=== PATIENT | female | born 1960 | race Caucasian/White ===

== ENCOUNTER 2018-01-18 14:58 | Outpatient (REF) | payer OTHER, SELFPAY | END 2018-01-18 15:18 | LOC: LBN 14:58 | PROVIDERS: PCP Nurse Practitioner; Visit Provider Nurse Practitioner | DX: R30.0 Dysuria (principal) | CPT/HCPCS: 87086 ==

== ENCOUNTER 2018-02-08 00:17 | Outpatient (CLI) | payer OTHER, SELFPAY ==
--- NOTE | 2018-02-08 12:30 | DI.MAMMO_ITS ---
SYMPTOMS/DIAGNOSIS: SCREENING FOR BREAST CANCER, Z12.31 MAMMOGRAMS: Mammograms were interpreted according to the usual protocol including computer analysis with CAD system, tomosynthesis and C view imaging. Comparison is with the prior examinations. No masses or microcalcifications are seen. There is nothing to suggest malignancy. IMPRESSION: Negative mammogram. Routine screening is recommended. Category 1 , breast density B. MQSA ASSESSMENT OF FINDINGS: Negative. Category 1. Patient will receive a letter notifying them of these results. BI-RADS category B. There are scattered areas of fibroglandular density.
[2018-02-08 12:51] LABS: HCT 43.3 % (36.0-46.0); Mean Corp. HGB Concentration 32.3 g/dL (32.0-36.0); Mean Corpuscular Volume 95.8 fL (80-95); Mean Platelet Volume 9.9 fL (8.0-11.0); Platelet Count 313 x1000/uL (130-400); RBC 4.52 m/cumm (4.00-5.20); RBC Distribution Width 13.5 % (11.7-14.6)
[2018-02-08 13:36] LABS: ALT 27 U/L (12-78); AST 24 U/L (15-37); Albumin 4.2 g/dL (3.4-5.0); Alkaline Phosphatase 88 U/L (46-116); Anion Gap 9.3 mmol/L (3-11); BUN 23 mg/dL (7-18); Bilirubin, Total 0.8 mg/dL (0.2-1.0); CO2 28.7 mmol/L (21.0-32.0); Calcium 9.6 mg/dL (8.5-10.1); Chloride 102 mmol/L (98-107); Cholesterol 209 mg/dL (50-200); Estimated GFR 51.57 (mL/min/1.73m2); Glucose 91 mg/dL (70-100); HDL Cholesterol 38 mg/dL (40-60); LDL CHOLESTEROL 145 mg/dL (<100); Potassium 4.2 mmol/L (3.5-5.1); Sodium 140 mmol/L (136-145); Total Protein 7.6 g/dL (6.4-8.2); Triglyceride 166 mg/dL (30-150)
== END 2018-02-08 00:37 ==
PROVIDERS: PCP Nurse Practitioner; Visit Provider Nurse Practitioner
DX: Z12.31 Encounter for screening mammogram for malignant neoplasm of breast (principal); N28.9 Disorder of kidney and ureter, unspecified; R30.0 Dysuria
CPT/HCPCS: 36415; 77063; 77067; 80053; 80061; 83721; 85027

== ENCOUNTER 2018-11-14 13:59 | Outpatient (REF) | payer OTHER, SELFPAY | END 2018-11-14 14:19 | LOC: LBN 13:59 | PROVIDERS: PCP Nurse Practitioner; Visit Provider Nurse Practitioner | DX: R30.0 Dysuria (principal) | CPT/HCPCS: 87077; 87086; 87186 ==

== ENCOUNTER 2019-04-11 02:19 | Outpatient (CLI) | payer OTHER, SELFPAY ==
--- NOTE | 2019-04-11 13:55 | DI.US_ITS ---
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 There is evidence of apical hypertrophic cardiomy opathy without LVOT obstruction. The left ventricular ejection fraction is within the normal range. T here is normal LV segmental wall motion. There is grade 2 diastolic dysfunction. LVEF is estimated to be 50-55%. Right Ventricle : Right ventricle appears dilated. Right ventricle is mildly hypokinetic. A device wi re is present in the right ventricle. Atria : Left atrium is severely dilated. There is a device wire seen in the right atrium. Right atriu m is mildly dilated. Aortic Valve : Aortic valve is trileaflet. No aortic regurgitation is present. There is no aortic alee vular stenosis. Mitral Valve : Mitral valve leaflets are mildly thickened. Mild mitral regurgitation. No evidence of mitral valve stenosis. Tricuspid Valve : Tricuspid valve leaflets are thickened but open well. Moderate tricuspid regurgitat ion. Great Vessels : IVC is normal in size and collapses >50% with inspiration. Estimated RVSP is 42-45 m mHg. Compared to echocardiogram from [facility] dated 07/26/2018: There is no significant change. Wall motion Left Ventricle The left ventricle is normal size. The left ventricular ejection fraction is within the normal range. There is evidence of apical hypertrophic cardiomyopathy without LVOT obstruction. There is normal LV segmental wall motion. There is grade 2 diastolic dysfunction. LVEF is estimated to be 50-55%. Right Ventricle Right ventricle appears dilated. Right ventricle is mildly hypokinetic. A device wire is present in t he right ventricle. Atria Left atrium is severely dilated. There is a device wire seen in the right atrium. Right atrium is mil dly dilated. Aortic Valve Aortic valve is trileaflet. There is no aortic valvular stenosis. No aortic regurgitation is present. Mitral Valve Mitral valve leaflets are mildly thickened. No evidence of mitral valve stenosis. Mild mitral regurgi tation. Tricuspid Valve Tricuspid valve leaflets are thickened but open well. Moderate tricuspid regurgitation. Pulmonic Valve Pulmonic valve is not well visualized. Trivial pulmonic regurgitation. Great Vessels The aortic root is normal in size. The ascending aorta is normal in size. IVC is normal in size and c ollapses >50% with inspiration. Estimated RVSP is 42-45 mmHg. Pericardium There is no pericardial effusion. 2D Dimensions IVSd 1.15 cm F: 0.6-1.0 LV EDV A2C 40.30 mL PWd 1.15 cm F: 0.6 - 1.0 LV EDV A4C 35.30 mL LVDd 4.30 cm F: 3.8 - 5.2 LA Volume Index A2C 48.96 mL/m2 LVDs 2.80 cm F: 2.2 - 3.5 LA Volume Index A4C 62.20 mL/m2 Aortic Root 2.55 cm F: 2.7 - 3.3 LA Volume Index Biplane 56.54 mL/m2 RVID Base (AP4) 4.34 cm (M/F) 2.5-4.1 LA Area A4C 25.70 cm2 RA Area A4C 22.53 cm2 LA Area A2C 22.25 cm2 LVOT 1.85 cm (M/F) 1.5-2.5 EF AP4 54.96 % Ascending Aorta 2.57 cm F: 2.3 - 3.1 EF AP2 51.36 % LVEF (Teich) 63.71 % EF BP 53.72 % LVEF (Simmons's) 53.72 % F: 54 - 74 LV Volume 32.01 mL F: 46 - 106 LV Volume Index 21.05 mL/m2 F: 29 - 61 FS 34.35 % LV Diastology MED E' 0.06 (>0.07 m/s) LV E/e MED 9.45 (<14) LAT E' 0.09 (>0.1 m/s) LV E/e LAT 6.15 (<14) Aortic Valve LVOT Area 2.82 cm2 LVOT Vmax 0.56 m/s LVOT Mean Naif. 0.43 m/s LVOT Peak Gr. 1.3 mmHg LVOT Mean Gr. 0.8 mmHg AoV Area/ BSA (Vmax) 1.41 cm2/m2 LVOT VTI 0.067 m AoV Vmax 0.74 (0.5-1.3 m/s) JULIAN Mean Naif. Index 1.42 cm2/m2 AoV Mean Naif. 0.56 m/s AoV Peak Grad 2.2 mmHg AoV Mean Grad 1.3 (<5 mmHg) AoV VTI 0.118 (0.18-0.25 m) AoV Area VTI 2.36 (2.5-4.5 cm2) AoV Area/ BSA (VTI) 1.55 cm/m2 Mitral Valve MV E Max Naif. 0.52 (0.4-1.3 m/s) MV Decel. Time 114.90 (160-240 msec) MV PHT 33.33 msec MVA PHT 6.60 cm2 Pulmonary Valve RVOT Peak Gr. 1.35 mmHg RVOT Peak Naif. 0.58 m/s RVOT Mean Gr. 0.70 mmHg RVOT VTI 0.10 m Tricuspid Valve TR P. Velocity 3.26 m/s TV Regurg Vmax 3.26 m/s RAP Estimate 3.00 mmHg RVSP 45.45 mmHg TR P. Gradient 42.45 mmHg
== END 2019-04-11 02:39 ==
PROVIDERS: PCP Nurse Practitioner; Visit Provider Physician Assistant Medical
DX: I48.21 Permanent atrial fibrillation (principal); I42.2 Other hypertrophic cardiomyopathy; Z95.0 Presence of cardiac pacemaker
CPT/HCPCS: 93306

== ENCOUNTER 2019-04-23 01:56 | Outpatient (CLI) | payer OTHER, SELFPAY ==
[2019-04-23 10:53] LABS: HGB 14.7 g/dL (12.0-15.5); Mean Corp. HGB Concentration 32.7 g/dL (32.0-36.0); Mean Corpuscular Hemoglobin 31.7 pg (27.0-33.0); Platelet Count 259 x1000/uL (130-400); RBC 4.64 m/cumm (4.00-5.20); RBC Distribution Width 13.4 % (11.7-14.6); White Blood Cell Count 6.23 k/cumm (4.4-10.8)
[2019-04-23 13:01] LABS: ALT 27 U/L (14-59); AST 26 U/L (15-37); Alkaline Phosphatase 102 U/L (46-116); Anion Gap 5.7 mmol/L (3-11); BUN 23 mg/dL (7-18); CO2 31.3 mmol/L (21.0-32.0); CREATININE 0.99 mg/dL (0.55-1.02); Calcium 9.5 mg/dL (8.5-10.1); Calculated LDL 136 mg/dL (>130); Chloride 104 mmol/L (98-107); Cholesterol 197 mg/dL (<200); Estimated GFR 57.82 (mL/min/1.73m2); Glucose 85 mg/dL (74-106); HDL Cholesterol 39 mg/dL (40-60); Potassium 4.4 mmol/L (3.5-5.1); Sodium 141 mmol/L (136-145); Total Protein 7.5 g/dL (6.4-8.2); Triglyceride 110 mg/dL (<150)
== END 2019-04-23 02:16 ==
PROVIDERS: PCP Nurse Practitioner; Visit Provider Nurse Practitioner
DX: I42.8 Other cardiomyopathies (principal); I48.91 Unspecified atrial fibrillation; E66.3 Overweight
CPT/HCPCS: 36415; 80053; 80061; 85027

== ENCOUNTER 2019-06-17 06:57 | Day surgery (SDC) | payer OTHER, SELFPAY ==
--- NOTE | 2019-06-17 06:48 | W.COLOREPORT ---
Date of service: 06/17/19 Time of Service: 08:34 Colonoscopy Report Date of procedure: 06/17/19 Pre-op diagnosis general: Colon Cancer Screening Post-op diagnosis procedure note: same Procedure: Colonoscopy Surgeon: Bella Leal Anesthesia proc note operative: other (General/ ASA 3/ Carmita Norwood, LUCERO) Estimated blood loss (mL): 0 Pathology: none sent Complications: None Disposition: other (General/ ASA /) Indications: 59 y/o female with history of atrial fibrillation presents for her first colonoscopy screening pre-op. She denies a family history of colon cancer. She denies any changes in bowel habits including bloody or black tarry stools, abdominal pain, diarrhea or constipation. She denies constitutional symptoms. Risks, benefits and complications have been reviewed. Complications include but are not limited to bleeding, pain, perforation, missed small lesion/polyp, sore throat, aspiration and adverse reaction to the medications. Questions were entertained and answered to their satisfaction and they wished to proceed. No guarantees were given or implied. Prep: Miralax/Dulcolax Procedure Start Time: :34 Procedure End Time: 08:51 Retraction Time: 13 minutes Findings: Normal bowel Procedure Description: After informed consent was obtained the patient was taken to the procedure room and placed in a left decubitous position. Monitors were applied and a time out was done. The patients name, date of , procedure, allergies to medications and metal in their body was reviewed. The patient was then sedated. Once sedated and comfortable a rectal exam was done. External exam was normal. Internal exam revealed a normal sphincter tone and no palpable masses. The scope was then introduced and retro-flexed. No internal hemorrhoids, masses or polyps were identified on retro-flexion. The scope was then advanced to the cecum without difficulty. The TI and appendiceal orifice were identified. The prep was adequate. The scope was then slowly retracted over 13 minutes back into the rectum. There were no polyps or diverticula noted. The scope was removed and the patient was woken up and taken back to Same day surgery in stable condition. The patient tolerated the procedure well and there were no immediate complications. Follow up: The patient should follow up in 10 years unless they develop changes in bowel habits or other new gastrointestinal complaints.
--- NOTE | 2019-06-17 06:49 | W.PM.DSUDISC ---
Discharge Plan Disposition Patient Disposition: HOME Condition: Good Discharge Details Reason For Visit: Colon Cancer Screening Attending Provider: Bella Leal Primary Care Provider: Carlita Zimmerman Home Meds and New Rx's Prescriptions: Continued codeine-guaifenesin 10-100 mg/5 mL liquid 5 ml PO Q4H PRN (Reason: cough) Qty: 118 RF: 0 enoxaparin [Lovenox] 60 mg/0.6 mL syringe 60 mg SC BID Qty: 12 RF: 0 ZYRTEC 5 MG TAB.CHEW 10 mg PO DAILY PRNRF: 0 FLONASE 16 GM SPRAY.SUSP 50 mcg NS DAILY PRNQty: 1 RF: 3 albuterol sulfate [ProAir HFA] 8.5 GM HFA aerosol inhaler 2 puff Inhalation Q4H PRN PRNQty: 1 RF: 6 furosemide 40 mg tablet 80 mg PO DAILY Qty: 180 RF: 3 metoprolol tartrate 25 mg tablet 25 mg PO BID Qty: 180 RF: 3 warfarin 5 mg tablet See Rx Instructions PO DAILY Qty: 135 RF: 3 gabapentin 600 mg tablet 600 mg PO HS Qty: 90 RF: 3 Discontinued polyethylene glycol 3350 17 gram/dose powder 238 g PO ONCE Qty: 238 RF: 0 bisacodyl [Dulcolax (bisacodyl)] 5 mg tablet,delayed release (DR/EC) 5 mg PO ONCE Qty: 4 RF: 0 Discharge Instructions Additional Instructions: Findings: Normal colonoscopy Follow up: 10 years Please call if you develop: fevers >101.5 Nausea or Vomiting Abdominal pain that is not transient DAY SURGERY UNIT POST ENDOSCOPY INSTRUCTIONS 1. Because there will be medication in your system for the next 24 hours, you may feel a little sleepy. Your coordination will be affected. Therefore: a. Do not drive or operate dangerous equipment for 24 hours. b. Do not drink alcohol beverages for 24 hours (not even beer). c. Plan to go home and rest for the day. 2. Generally there are no restrictions on your activity after a day or so has gone by, but you may feel a bit fatigued for a few days. 3 After you arrive home you may have a light meal and return to a normal diet as you can tolerate it without feeling sick to your stomach. 4. After surgery, you may feel pain or discomfort. This should be only transient, but if it persists please contact your doctor. 5. If there are any questions regarding the findings of your procedure, please feel free to contact your doctor. 6. If you are unable to contact your doctor with a problem, contact the hospital at [phone]. 7. Continue all your regular medications unless directed otherwise. I understand the above instructions and have no questions. Signature of Patient or Responsible Adult Escort Date/Time Name of Responsible Adult Escort Signature of Nurse Date/Time Activity:: Activity as Tolerated Diet:: As Tolerated Discharge Orders Discharge Orders: Discharge Order (Routine); Ordered 06/17/19 Ordered By: Bella Leal
[2019-06-17 07:20] VITALS: BP 95/66; PULSE 77; RESP 16; TEMP 36.5; O2SAT 99
[2019-06-17] MEDS: Lactated Ringers 1,000 ML 80 ML IV (08:05)
[2019-06-17 08:10] LABS: INR 1.2 (0.9-1.1); Prothrombin Time 11.6 sec (9.3-11.0)
[2019-06-17 09:39] VITALS: BP 92/63; PULSE 65; RESP 16; TEMP 36.5; O2SAT 98
== END 2019-06-17 10:00 | disposition home or self-care (01) ==
LOC: SUR 06:57
PROVIDERS: PCP Nurse Practitioner; Visit Provider Surgery
PROC: 0DJD8ZZ Inspection of Lower Intestinal Tract, Via Natural or Artificial Opening Endoscopic (ICD-10-PCS; CPT 45378; principal; 2019-06-17 08:30)
DX: Z12.11 Encounter for screening for malignant neoplasm of colon (principal)
CPT/HCPCS: 45378; 36415; 85610; J2001

== ENCOUNTER 2019-06-26 01:51 | Outpatient (RCR) | payer OTHER, SELFPAY ==
[2019-06-13] MEDS: Enoxaparin 60 MG/0.6 ML SYR SC (19:12)
[2019-06-17] MEDS: Enoxaparin 60 MG/0.6 ML SYR SC (19:02)
[2019-06-18 07:37] LABS: INR 1.1 (0.9-1.1); Prothrombin Time 10.8 sec (9.3-11.0)
[2019-06-20 07:32] LABS: INR 1.3 (0.9-1.1); Prothrombin Time 13.1 sec (9.3-11.0)
[2019-06-21 07:54] LABS: INR 1.4 (0.9-1.1); Prothrombin Time 13.9 sec (9.3-11.0)
[2019-06-23] MEDS: Enoxaparin 60 MG/0.6 ML SYR SC ×2 (07:07→19:03)
[2019-06-24 08:18] LABS: INR 1.3 (0.9-1.1); Prothrombin Time 13.1 sec (9.3-11.0)
[2019-06-24] MEDS: Enoxaparin 60 MG/0.6 ML SYR SC ×2 (08:24→19:07)
[2019-06-25] MEDS: Enoxaparin 60 MG/0.6 ML SYR SC ×2 (07:09→18:58)
[2019-06-26 07:46] LABS: INR 2.3 (0.9-1.1); Prothrombin Time 22.4 sec (9.3-11.0)
== END 2019-07-02 23:59 | disposition home or self-care (01) ==
LOC: INF 01:51
PROVIDERS: PCP Nurse Practitioner; Visit Provider Nurse Practitioner
DX: I48.3 Typical atrial flutter (principal); I42.9 Cardiomyopathy, unspecified; Z79.01 Long term (current) use of anticoagulants
CPT/HCPCS: 36415; 96365; 96372; 85610; J1650

== ENCOUNTER 2020-02-05 16:37 | Outpatient (REF) | payer OTHER, SELFPAY ==
--- NOTE | 2020-02-05 15:15 | CER_PTH ---
PATIENT: Nneka Polanco LOC: N U#:[id number] AGE/SX: 59/F ROOM: RE02/05/[address]: Geine Sánchez DO : 1960 BED: DIS: 02/05/2020 SPEC #: [id number] RECD: 02/05/20 17:41 STATUS: TESS REQ #: [id number] GUERO: 02/05/20 15:[address]: Genie Sánchez DEPT: Surgical Specimen RECD BY: Jessie Whitaker ENTERED: 02/05/20 17:42 SP TYPE: ANNEMARIE COLEMAN DR: Carlita Zimmerman APRN Tissues: 1 - CERVICAL BIOPSY 2 - ENDOCERVICAL BX/CURRETTE Procedures: GROSS AND MICRO LEVEL 4 Comments: [id number]
== END 2020-02-05 16:57 ==
LOC: LBN 16:37
PROVIDERS: PCP Nurse Practitioner; Visit Provider Obstetrics & Gynecology
DX: Z12.4 Encounter for screening for malignant neoplasm of cervix (principal); Z87.42 Personal history of other diseases of the female genital tract
CPT/HCPCS: 88305

== ENCOUNTER 2020-05-04 01:35 | Outpatient (CLI) | payer OTHER, SELFPAY ==
--- NOTE | 2020-05-04 14:00 | DI.US_ITS ---
APPROVED REPORT EXAM: Comprehensive 2D, Doppler, and color-flow Echocardiogram Patient Location: Out-Patient Community Engagement Representative: Carrie Weinstein RDCS (AE) Indications: Hypertrophic non obstructive cardiomyopathy Other Information Study Quality: Adequate Conclusion Left Ventricle : The left ventricle is normal size. Left ventricular systolic function is borderline. Mild basal septal hypertrophy is present. There is evidence of apical hypertrophic cardiomyopathy w ithout LVOT obstruction. There is mild global hypokinesis of the left ventricle. LVEF is 50%. Right Ventricle : Right ventricle is not well visualized. The right ventricular systolic function is normal. The RVSP is 44.0 mmHg. Atria : The left atrium size is normal. The right atrium size is normal. Mitral Valve : The mitral valve is normal in structure. Mild to moderate mitral regurgitation. No sony dence of mitral valve stenosis. Great Vessels : The aortic root is normal in size. The ascending aorta is normal in size. Ascending a ritika is not well visualized. The IVC collapses <50% with inspiration. Compared to report from [facility] on 07/26/2018, patient's ejection fraction is decreased slightly fro m 63% to 50%. RVSP remains elevated. Wall motion Left Ventricle The left ventricle is normal size. Left ventricular systolic function is borderline. Mild basal septa l hypertrophy is present. There is evidence of apical hypertrophic cardiomyopathy without LVOT obstru ction. There is mild global hypokinesis of the left ventricle. There is no ventricular septal defect visualized. LVEF is 50%. Right Ventricle Right ventricle is not well visualized. The right ventricular systolic function is normal. The RVSP i s 44.0 mmHg. Device lead is present in the right ventricle. Atria The left atrium size is normal. The right atrium size is normal. The interatrial septum is intact wit h no evidence for an atrial septal defect. Aortic Valve The aortic valve is normal in structure. Aortic valve is trileaflet. There is no aortic valvular sten osis. No aortic regurgitation is present. Mitral Valve The mitral valve is normal in structure. No evidence of mitral valve stenosis. Mild to moderate edilma l regurgitation. Tricuspid Valve The tricuspid valve is normal in structure. There is no tricuspid valve stenosis. Moderate tricuspid regurgitation. Pulmonic Valve The pulmonary valve is normal in structure. There is no pulmonic valvular stenosis. Trace pulmonic re gurgitation. Great Vessels The aortic root is normal in size. The ascending aorta is normal in size. Ascending aorta is not well visualized. The IVC collapses <50% with inspiration. Pericardium There is no pericardial effusion. 2D Dimensions IVSD d PLAX 1.14 cm F: 0.6-1.0 LV Vol A2C d MOD 72.7 mL LVPW d PLAX 1.05 cm F: 0.6 - 1.0 LV Vol A4C d MOD 44.7 mL LVID d PLAX 4.15 cm F: 3.8 - 5.2 LV EF A4C MOD 48.0 % LVDs 3.20 cm F: 2.2 - 3.5 LV EF A2C MOD 50.4 % Ao Root d 2.22 cm F: 2.7 - 3.3 LV EF Biplane MOD 49.4 % RA Area A4C 16.56 cm2 SV 29.05 mL RA Vol/ BSA A4C s A-L 25.2 mL/m2 SV Index 18.34 mL/m2 Ao Asc Diam d 2.72 cm F: 2.3 - 3.1 LV EF Teichholz 45.2 % LVEF (Simmons's) 49.41 % F: 54 - 74 LV Volume 47.96 mL F: 46 - 106 LV Volume Index 30.35 mL/m2 F: 29 - 61 LV Vol Biplane MOD 58.8 mL FS 22.15 % LV Diastology MV E Vmax 0.57 (0.4-1.3 m/s) Aortic Valve LVOT Area 2.62 cm2 AoV Area Vmax 2.16 cm2 LVOT Vmax 0.59 m/s AoV Area/ BSA (Vmax) 1.37 cm2/m2 LVOT Mean Naif. 0.41 m/s JULIAN Mean Naif. 1.93 cm2 LVOT Peak Grad 1.4 mmHg JULIAN Mean Naif. Index 1.22 cm2/m2 LVOT Mean Grad 0.8 mmHg LVOT VTI 0.104 m LVOT Diam s 1.80 cm AoV Vmax 0.71 m/s Velocity Ratio 0.83 AoV Mean Naif. 0.56 m/s AoV Peak Grad 2.0 mmHg LVOT SV 27.31 mL AoV Mean Grad 1.3 mmHg AoV VTI 0.132 m AoV Area VTI 2.07 cm2 AoV Area/ BSA (VTI) 1.30 cm/m2 Mitral Valve MV DT 157 (160-240 msec) MV PHT 45 msec MV Area PHT 4.84 cm2 Pulmonary Valve PV Vmax 0.53 (0.5-1.5 m/s) RVOT Peak Gr. 1.13 mmHg PV Peak Grad 1.1 mmHg RVOT Mean Gr. 0.60 mmHg PV Mean Grad 0.7 mmHg RVOT VTI 0.109 m PV VTI 0.111 m RVOT Vmax 0.53 m/s Tricuspid Valve TR Peak Grad 35.9 mmHg TR Vmax 3.00 m/s RA Pressure 8.00 mmHg RVSP (TR) 44.0 mmHg
== END 2020-05-04 01:55 ==
PROVIDERS: PCP Nurse Practitioner; Visit Provider Nurse Practitioner
DX: I34.0 Nonrheumatic mitral (valve) insufficiency (principal)
CPT/HCPCS: 93306

== ENCOUNTER 2020-10-19 01:24 | Outpatient (CLI) | payer OTHER, SELFPAY ==
--- NOTE | 2020-10-19 06:45 | DI.MAMMO_ITS ---
Exam(s) MAMMO SCREENING EXAM: MAMMO SCREENING CLINICAL HISTORY: screening,z12.39. TECHNIQUE: Bilateral full field digital CC and MLO mammographic images were obtained with 3D tomosyn thesis and utilizing computer aided detection (CAD). COMPARISON: Prior mammograms dating back to 2012, the most recent being February 2018. FINDINGS: Right-sided pacemaker again noted. Are no CAD designations. No new significant radiograph findings in right breast In the left breast there is a new small nodule which measures 2 x 1.5 millimeters located approximate ly 3.5 cm in from the nipple on the CC view, lateral center. Spot compression view and ultrasound re commended. There are no malignant-appearing microcalcification groups is region or elsewhere in eith er breast There is no significant architectural distortion nor skin thickening-retraction. IMPRESSION: No radiographic evidence of malignancy in the right breast. Right-sided pacemaker again noted New 2.5 1 millimeter nodule in the left breast, slightly lateral center. Ultrasound recommended to d etermine if this is solid or cystic. BI-RADS Category 0 - Assessment Incomplete: Need additional imaging evaluation Breast Density - Category B - Scattered areas of fibroglandular density Breast density Category C or D implies that the patient has dense breast tissue. Dense breast tissue can make it harder to find cancer on a mammogram. Dense breast tissue is also associated with an incr eased risk of breast cancer. This information about the result of the mammogram report was provided to the patient to raise their awareness. Use this report when you speak with the patient about their risks for breast cancer, which includes their family history. At that time, you may recommend additional screening tests (Ultrasoun d or MRI) as these tests may add significant information. A negative radiographic report should not delay biopsy if a dominant or clinically suspicious mass is present. Up to ten percent of cancers are not identified on mammography. A negative report may reinforce clinical impression. Adenosis and dense breasts may obscure an underlying neoplasm. False positive reports average 6 to 10%. Patient will receive a letter notifying them of these results.
== END 2020-10-19 01:44 ==
PROVIDERS: PCP Nurse Practitioner; Visit Provider Nurse Practitioner
DX: Z12.31 Encounter for screening mammogram for malignant neoplasm of breast (principal); R92.8 Other abnormal and inconclusive findings on diagnostic imaging of breast; N63.20 Unspecified lump in the left breast, unspecified quadrant; Z95.0 Presence of cardiac pacemaker
CPT/HCPCS: 77063; 77067

== ENCOUNTER 2020-10-30 04:34 | Outpatient (CLI) | payer OTHER, SELFPAY ==
--- NOTE | 2020-10-30 | DI.US_ITS ---
Exam(s) MG MAMMO SCREEN CALL BACK UNI US BREAST LT LIMITED EXAM: MG MAMMO SCREEN CALL BACK UNI and U/S breast LT limited CLINICAL HISTORY: F/U MAMMO, NEW LT BREAST NODULE, ? CYSTIC OR SOLID. TECHNIQUE: Craniocaudal and mediolateral oblique Full Field Digital Mammography views of the left br east with Computer Aided Diagnosis followed by Tomosynthesis and left breast ultrasound. COMPARISON: Priors available for comparison. FINDINGS: Mammography/Tomosynthesis: Masses/Architectural Distortion: The small 3 mm well-circumscribed nodule in the upper outer quadrant of the left breast is again identified on the additional views. No associated microcalcifications a re seen. Microcalcifictions: No suspicious pleomorphic-type are seen. Skin Thickening/Nipple Retraction: None. Left breast US: Echotexture: Normal appearance of the glandular tissue. Shadowing: No suspicious foci. Cyst: None. Solid lesions: There are several hyperechoic well-circumscribed avascular masses scattered throughout the upper outer quadrant most consistent with lipomas. There was a 0.5 x 0.2 x 0.5 cm well-circumsc ribed hypoechoic nodule at the 2 o'clock position of the left breast 7 cm from the nipple. It has a hyperechoic echogenic focus and is most suggestive sonographically of a lymph node. This appears to correspond in location to the mammographic abnormality. Ductal dilation: None. IMPRESSION: 1. No evidence of malignancy is noted. 2. Unless there is more urgent need, follow-up screening mammography is recommended, as per [place] [employer] guidelines. 3. The findings were discussed with the patient on the date of the examination. BI-RADS Category 2 - Benign Findings Breast Density - Category B - Scattered areas of fibroglandular density Breast density Category C or D implies that the patient has dense breast tissue. Dense breast tissue can make it harder to find cancer on a mammogram. Dense breast tissue is also associated with an incr eased risk of breast cancer. This information about the result of the mammogram report was provided to the patient to raise their awareness. Use this report when you speak with the patient about their risks for breast cancer, which includes their family history. At that time, you may recommend additional screening tests (Ultrasoun d or MRI) as these tests may add significant information. A negative radiographic report should not delay biopsy if a dominant or clinically suspicious mass is present. Up to ten percent of cancers are not identified on mammography. A negative report may reinforce clinical impression. Adenosis and dense breasts may obscure an underlying neoplasm. False positive reports average 6 to 10%. Patient will receive a letter notifying them of these results.
== END 2020-10-30 04:54 ==
PROVIDERS: PCP Nurse Practitioner; Visit Provider Nurse Practitioner
DX: Z12.31 Encounter for screening mammogram for malignant neoplasm of breast (principal); N63.21 Unspecified lump in the left breast, upper outer quadrant; R92.8 Other abnormal and inconclusive findings on diagnostic imaging of breast
CPT/HCPCS: 76642; 77063; 77067

== ENCOUNTER 2020-11-19 17:41 | Outpatient (REF) | payer OTHER, SELFPAY ==
[2020-11-21 13:23] LABS: COVID-19 RT-PCR UVMMC Result Negative (Negative)
== END 2020-11-19 17:42 | disposition home or self-care (01) ==
LOC: LBN 17:41
PROVIDERS: PCP Nurse Practitioner
DX: Z20.822 Contact with and (suspected) exposure to COVID-19 (principal)
CPT/HCPCS: U0003

== ENCOUNTER 2021-06-14 16:12 | Outpatient (REF) | payer OTHER, SELFPAY ==
--- NOTE | 2021-06-14 15:30 | PAPFT_PTH ---
PATIENT: Nneka Polanco LOC: [facility] U#:[id number] AGE/SX: 61/F ROOM: RE06/14/[address]: Genie Sánchez DO : 1960 BED: DIS: 06/14/2021 SPEC #: [id number] RECD: 06/14/21 18:13 STATUS: BHANUAltaf REQ #: [id number] GUERO: 06/14/21 15:[address]: Genie Sánchez DEPT: [facility] Cytology RECD BY: Jessie Whitaker ENTERED: 06/14/21 18:14 SP TYPE: PAPFT [place] DR: Carlita Zimmerman APRN Tissues: 1 - CX/ENDOCX FOR PAP SMEARS Procedures: PAP THIN PREP/UVM Screening HPV DNA PROBE Comments: [id number]
== END 2021-06-14 16:13 | disposition home or self-care (01) ==
LOC: LBN 16:12
PROVIDERS: PCP Nurse Practitioner; Visit Provider Obstetrics & Gynecology
DX: Z12.4 Encounter for screening for malignant neoplasm of cervix (principal); Z11.51 Encounter for screening for human papillomavirus (HPV); R87.810 Cervical high risk human papillomavirus (HPV) DNA test positive
CPT/HCPCS: 88142; 87624

== ENCOUNTER 2021-07-01 14:48 | Outpatient (REF) | payer OTHER, SELFPAY ==
--- NOTE | 2021-07-01 14:25 | ENDO_PTH ---
PATIENT: Nneka Polanco LOC: N U#:[id number] AGE/SX: 61/F ROOM: RE07/01/[address]: Genie Sánchez DO : 1960 BED: DIS: 07/01/2021 SPEC #: [id number] RECD: 07/01/21 17:17 STATUS: TESS REQ #: [id number] GUERO: 07/01/21 14:[address]: Genie Sánchez DEPT: Surgical Specimen RECD BY: Jessie Whitaker ENTERED: 07/01/21 17:17 SP TYPE: Endo OTHR DR: Carlita Zimmerman APRN Tissues: 1 - ENDOCERVICAL BX/CURRETTE Procedures: GROSS AND MICRO LEVEL 4 Comments: [id number]
== END 2021-07-01 14:49 | disposition home or self-care (01) ==
LOC: LBN 14:48
PROVIDERS: PCP Nurse Practitioner; Visit Provider Obstetrics & Gynecology
DX: R87.810 Cervical high risk human papillomavirus (HPV) DNA test positive (principal)
CPT/HCPCS: 88305

== ENCOUNTER 2021-09-30 02:31 | Outpatient (CLI) | payer OTHER, SELFPAY ==
[2021-09-30 09:28] LABS: ALT 29 U/L (14-59); AST 32 U/L (15-37); Albumin 3.9 g/dL (3.4-5.0); Alkaline Phosphatase 148 U/L (46-116); Anion Gap 6.1 mmol/L (3-11); BUN 24 mg/dL (7-18); Bilirubin, Total 1.8 mg/dL (0.2-1.0); CO2 32.9 mmol/L (21.0-32.0); CREATININE 1.2 mg/dL (0.55-1.02); Calcium 9.3 mg/dL (8.5-10.1); Calculated LDL 126 mg/dL (<100); Chloride 99 mmol/L (98-107); Cholesterol 191 mg/dL (<200); Estimated GFR 45.98 (mL/min/1.73m2); Glucose 99 mg/dL (74-106); HDL Cholesterol 37 mg/dL (40-60); Potassium 3.9 mmol/L (3.5-5.1); Sodium 138 mmol/L (136-145); Total Protein 8.1 g/dL (6.4-8.2); Triglyceride 142 mg/dL (<150)
== END 2021-09-30 02:32 | disposition home or self-care (01) ==
LOC: LBO 02:32
PROVIDERS: PCP Nurse Practitioner; Visit Provider Nurse Practitioner
DX: I48.91 Unspecified atrial fibrillation (principal); I42.8 Other cardiomyopathies; R79.89 Other specified abnormal findings of blood chemistry
CPT/HCPCS: 36415; 80053; 80061

== ENCOUNTER → 2021-10-25 01:45 | Outpatient (CLI) | payer OTHER, SELFPAY ==
--- NOTE | 2021-10-25 06:45 | DI.MAMMO_ITS ---
Exam(s) MAMMO SCREENING EXAM: MAMMO SCREENING CLINICAL HISTORY: screening, Z12.39. TECHNIQUE: Bilateral full field digital CC and MLO mammographic images were obtained with 3D tomosyn thesis and utilizing computer aided detection (CAD). COMPARISON: Prior mammograms were reviewed, the most recent being October 2020. Ultrasound October 2020 was also reviewed FINDINGS: There has been no significant change in the appearance and distribution of the fibroglandular tissue Previously described small benign-appearing nodule in the left breast is unchanged. There are no new spiculated masses nor malignant appearing microcalcification groups. There is no significant architectural distortion nor skin thickening-retraction. IMPRESSION: No radiographic evidence of malignancy. Stable benign findings. BI-RADS Category 1 - Negative Breast Density - Category B - Scattered areas of fibroglandular density Breast density Category C or D implies that the patient has dense breast tissue. Dense breast tissue can make it harder to find cancer on a mammogram. Dense breast tissue is also associated with an incr eased risk of breast cancer. This information about the result of the mammogram report was provided to the patient to raise their awareness. Use this report when you speak with the patient about their risks for breast cancer, which includes their family history. At that time, you may recommend additional screening tests (Ultrasoun d or MRI) as these tests may add significant information. A negative radiographic report should not delay biopsy if a dominant or clinically suspicious mass is present. Up to ten percent of cancers are not identified on mammography. A negative report may reinforce clinical impression. Adenosis and dense breasts may obscure an underlying neoplasm. False positive reports average 6 to 10%. Patient will receive a letter notifying them of these results.
== END ==
PROVIDERS: PCP Nurse Practitioner; Visit Provider Nurse Practitioner
DX: Z12.31 Encounter for screening mammogram for malignant neoplasm of breast (principal)
CPT/HCPCS: 77063; 77067

== ENCOUNTER 2022-02-11 18:42 | Inpatient (IN) | payer OTHER, SELFPAY ==
[2022-02-11] VITALS (22 sets, daily range): BP systolic 103–119; BP diastolic 66–77; PULSE 68–80; RESP 15–26; TEMP 36.4–37.2; O2SAT 95–98
--- NOTE | 2022-02-11 18:30 | RT.EKG_ITS ---
APPROVED REPORT Exam: Resting ECG Reason for Exam: AMS Patient Location: E HR:71 bpm ECG Measurements Heart Rate 71 AXIS FL [id number] P [id number] QRSd 179 QRS -23 QT 458 T 143 QTc 499 Conclusion Afib/flutter and ventricular-paced rhythm...V-paced rhythm, A-rate>240 a flutter, v paced
--- NOTE | 2022-02-11 18:50 | W.ED.GENAD ---
Discharge Plan Disposition Patient Disposition: [facility] INPATIENT Condition: Stable Discharge Details Chief Complaint: CVA/TIA Clinical Impression: Aphasia Primary Care Provider: Carlita Zimmerman ED Provider: Sebastian Doll Home Meds and New Rx's Prescriptions: No Action albuterol sulfate [ProAir HFA] 90 mcg/actuation HFA aerosol inhaler 2 puff Inhalation Q4H PRN PRN (Reason: bronchospasm) Qty: 1 0RF Rx Instructions: Trial for dry cough guaifenesin [Mucinex Fast-Max Chest-Congest] 100 mg/5 mL liquid 200 mg PO Q4H PRN (Reason: cough) Qty: 473 0RF loratadine 10 mg tablet 10 mg PO DAILY Rx Instructions: for allergies warfarin 5 mg tablet 5 mg PO DAILY Qty: 7 0RF Protocol: Dose Management Condition: Monday Dose/Route: 5 mg Instruction: 1 x 5 mg tablet Condition: Monday Dose/Route: 7.5 mg Instruction: 1.5 x 5 mg tablets Condition: Monday Dose/Route: 5 mg Instruction: 1 x 5 mg tablet Condition: Monday Dose/Route: 5 mg Instruction: 1 x 5 mg tablet Condition: Dose/Route: 7.5 mg Instruction: 1.5 x 5 mg tablets Condition: Monday Dose/Route: 5 mg Instruction: 1 x 5 mg tablet Condition: Monday Dose/Route: 5 mg Instruction: 1 x 5 mg tablet Protocol Text: Adjustment Start Date: Monday02/07/22 INR Value: 2.0 INR Date: 02/07/22 Additional Instructions: per JV, no change. continue same dosing recheck 1 wk. lm w. detailed instructions on well identified VM. NC Rx Instructions: or as directed to maintain INR between 2-3. furosemide 40 mg tablet See Rx Instructions PO DAILY Qty: 270 3RF Rx Instructions: 2 tabs QAM, 1 tab QPM per cardiology dated 11/13/20. gabapentin 600 mg tablet 600 mg PO HS Qty: 90 3RF Rx Instructions: dx: hot flashes metoprolol tartrate 25 mg tablet See Rx Instructions .ROUTE .COMPLEX Qty: 180 3RF Dose Instruction: TAKE 1 TABLET TWICE A DAY Rx Instructions: TAKE 1 TABLET TWICE A DAY trazodone 50 mg tablet 50 mg PO QHS PRN (Reason: sleep) Qty: 30 3RF warfarin 5 mg tablet See Rx Instructions .ROUTE .COMPLEX Qty: 135 3RF Protocol: Dose Management Condition: Monday Dose/Route: 5 mg Instruction: 1 x 5 mg tablet Condition: Monday Dose/Route: 7.5 mg Instruction: 1.5 x 5 mg tablets Condition: Monday Dose/Route: 5 mg Instruction: 1 x 5 mg tablet Condition: Monday Dose/Route: 5 mg Instruction: 1 x 5 mg tablet Condition: Dose/Route: 7.5 mg Instruction: 1.5 x 5 mg tablets Condition: Monday Dose/Route: 5 mg Instruction: 1 x 5 mg tablet Condition: Monday Dose/Route: 5 mg Instruction: 1 x 5 mg tablet Protocol Text: Adjustment Start Date: Monday02/07/22 INR Value: 2.0 INR Date: 02/07/22 Additional Instructions: per JV, no change. continue same dosing recheck 1 wk. marques w. detailed instructions on well identified VM. NC Dose Instruction: TAKE ONE AND ONE-HALF TABLETS (7.5 MG) DAILY OR DIRECTED Rx Instructions: TAKE ONE AND ONE-HALF TABLETS (7.5 MG) DAILY OR DIRECTED Medical Decision Making 71-year-old female history of prior cardiac arrest, ICD, A. fib on warfarin, brought in by EMS for evaluation of altered speech, approximately 1/2-hour ago patient was not making sense on the phone with numbers, patient denies current complaints at this time, fingerstick normal in the field, expressive aphasia on examination, no focal motor deficits, patient taken for CT CTA head neck, will obtain labs and EKG. High clinical suspicion for CVA versus TIA must also consider intracranial hemorrhage given anticoagulation and altered speech. Given unknown time of onset as this is only discovered after family called her on the phone as well as patient's current anticoagulation she is not a candidate for tPA. We will touch base with [facility] neurology. Likely admission for MRI and further neuro evaluation. 19: 34 a flutter with V paced rhythm. Hemodynamically stable. Persistent expressive aphasia. CT CTA head and neck read as negative. Awaiting consult patient [facility] neurology. 20: 40 spoke with [facility] neurology who agrees that patient is not a candidate for tPA, consider acute CVA versus TIA, recommending MRI and close neurology follow-up. Recommending aspirin. HPI General Date/Time Provider Initiated Documentation: 02/11/22 18:47. HPI Narrative: 61-year-old female history of A. fib, chart review showing possible past cardiac arrest, ICD, on warfarin, brought in by EMS for evaluation of altered speech. Family noted approximately 1/2-hour ago while speaking to her on the phone that she was not making sense. Patient herself has no current complaints. Fingerstick normal in route Related Data Home Medications Medication Instructions Recorded Confirmed loratadine 10 mg tablet 10 mg PO DAILY 07/12/19 02/11/22 albuterol sulfate 90 mcg/actuation 2 puff inhalation Q4H PRN PRN 04/16/20 02/11/22 aerosol inhaler (ProAir HFA) bronchospasm ##1 warfarin 5 mg tablet 5 mg PO DAILY #7 tabs 10/12/20 02/11/22 guaifenesin 100 mg/5 mL oral 200 mg (10 mL) PO Q4H PRN cough 11/19/20 02/11/22 liquid (Mucinex Fast-Max Chest #473 mL Congestion) furosemide 40 mg tablet See Rx Instructions PO DAILY #270 02/16/21 02/11/22 tab-caps gabapentin 600 mg tablet 600 mg PO HS #90 tabs 03/29/21 02/11/22 metoprolol tartrate 25 mg tablet See Rx Instructions .Route 08/11/21 02/11/22 .COMPLEX #180 tabs trazodone 50 mg tablet 50 mg PO QHS PRN sleep #30 tabs 09/13/21 02/11/22 warfarin 5 mg tablet See Rx Instructions .Route 11/30/21 02/11/22 .COMPLEX #135 tabs Previous Rx's Medication Instructions Recorded albuterol sulfate 90 mcg/actuation 2 puff inhalation Q4H PRN PRN 04/16/20 aerosol inhaler (ProAir HFA) bronchospasm ##1 warfarin 5 mg tablet 5 mg PO DAILY #7 tabs 10/12/20 guaifenesin 100 mg/5 mL oral 200 mg (10 mL) PO Q4H PRN cough 11/19/20 liquid (Mucinex Fast-Max Chest #473 mL Congestion) furosemide 40 mg tablet See Rx Instructions PO DAILY #270 02/16/21 tab-caps gabapentin 600 mg tablet 600 mg PO HS #90 tabs 03/29/21 metoprolol tartrate 25 mg tablet See Rx Instructions .Route 08/11/21 .COMPLEX #180 tabs trazodone 50 mg tablet 50 mg PO QHS PRN sleep #30 tabs 09/13/21 warfarin 5 mg tablet See Rx Instructions .Route 11/30/21 .COMPLEX #135 tabs Allergies Allergy/AdvReac Type Severity Reaction Status Date / Time apple Allergy Severe Verified 02/11/22 18:48 disopyramide phosphate Allergy Severe VT Verified 02/11/22 18:48 [From [facility]] Penicillins Allergy Intermediate Skin Rash Verified 02/11/22 18:48 chlorpheniramine Allergy Verified 02/11/22 18:48 peach Allergy Verified 02/11/22 18:48 walnut Allergy Verified 02/11/22 18:48 General Stated Complaint: CVA/TIA AIDA: 2 Review of Systems Narrative: Review of Systems Constitutional: negative Eyes: negative ENT: negative Cardiovascular: negative Respiratory: negative Gastrointestinal: negative : negative Musculoskeletal: negative Skin: negative Neurologic: Altered speech Psych: negative PFSH All Active Problems (Updated 02/11/22 @ 20:44 by Sebastian Doll MD) Aphasia (Acute) COVID (Acute ~08/18/21) History of abnormal cervical Papanicolaou smear (Acute) History of HPV infection (Acute) CAP (community acquired pneumonia) (Acute) URI (upper respiratory infection) (Acute) Vaginal atrophy (Acute) 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) Abnormal Pap smear of cervix (Acute) Allergic rhinitis (Chronic 01/28/13) Zyrtec plus prn Flonase Atrial fibrillation (Chronic 05/10/11) 06/12 pul vein isolation/ablation [facility] [place]; repeat [facility] [place] 08/18/1208/13 LASHA EF 65% Chronic atrial flutter (Chronic 07/30/14) 06/12 pul vein isolation/ablation [facility] [place]; repeat [facility] [place] 08/18/1208/13 LASHA EF 65% Hot flashes (Chronic 07/22/13) RX Gabapentin 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 current use of anticoagulants with INR goal of 2.0-3.0 (Chronic 07/11/12) Home monitoring Primary cardiomyopathy (Chronic 05/10/11) Hereditary; AICD; hx V Fib arrest; AVJ ablation (05/2013); successful' ICD; ECHO [facility] [place] 12/2014 EF 58% diastolic CHF Dr Russo Cardiology [facility] [place], Echocardiogram 07/26/18 [facility] [place], 05/04/20 echo at [facility] [place] 05/21/20 F/U [facility], 04/06/21 Outpt Stress Test done Renal insufficiency (Chronic 07/16/15) 07/2015 US kidney NL Dysuria (Acute) Routine general medical examination at a health care facility (Acute) Medical History Afib Hx of cardiac arrest 2006 ICD (implantable cardioverter-defibrillator) in place Normal colonoscopy (~06/2019) Surgical History Hx of prior ablation treatment Recurrent major depression in partial remission (01/01/11) [facility] [place] pt. denies this Recurrent major depression in partial remission (08/01/12) [facility] [place] Family History (Updated 09/22/21 @ 13:22 by Sujata Marinelli) Father , [place] Alcohol use disorder Heart disease Sister Afib Heart disease Uncle Afib Heart disease Social History (Updated 09/22/21 @ 13:20 by Sujata Marinelli) Smoking/Tobacco Use Status: Former Tobacco Use Quit Date: 04/03/89 Tobacco: How many years used: 3 Quit status: quit date established Smoking risk assessment performed?: Yes Alcohol Intake: current Alcohol Intake frequency: holidays/special occasions only Drug use: Never Substance use type: does not use Adopted: No Caregiver/Support person: No Foster care: No Household members: none Housing: house Number of Children: 2 Education Level: high school Do you need help understanding health information?: Rarely 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 Pets and animals: Yes Pets and animals: dog(s) Sexually active: No Do you think of yourself as: straight/heterosexual Current gender identity: female What is your relationship status?: How often do you talk on the phone with friends or family?: three or more times per week How often do you get together with friends or relatives?: three or more times per week Do you belong to any clubs or organized social groups?: yes Panel score (0-1 are the most socially isolated patients): 2 What type of physical activity do you participate in: walking Duration: 15-30 minutes/day Frequency: 5-6 times per week Shima/Islam: Taoism Special shima needs: No Seatbelt use: always Helmet use: Yes Drive intox or ride w/intox class a truck driver: No Do you feel safe at home: Yes Do you feel safe in your relationship?: Yes Additional Social history: not in current relationship Exam Narrative Exam Narrative: Physical Examination General: alert, awake, cooperative, resting comfortably, no acute distress HEENT: normocephalic, atraumatic; PERRL, EOM intact, conjunctiva normal; no nasal discharge; moist mucous membranes, oral and pharyngeal mucosa normal, tolerating secretions Neck: supple, trachea midline; full ROM Chest: normal to inspection Respiratory: normal respiratory effort, speaking in full sentences, clear to auscultation, no wheezing, rales or rhonchi Cardiac: regular rate, regular rhythm, S1S2 intact, no murmurs rubs or gallops GI: abdomen soft, non-tender, non-distended; no palpable mass or hepatosplenomegaly Skin: no lesions, rashes or trauma appreciated Neuro: When asked her name patient gives us her birthday, when asked what town she is currently in she answers [place] incorrectly, when asked the date she again gives us her birthday, patient understands speech and is following commands however has a definitive expressive aphasia, no dysarthria, cranial nerves II through XII intact, 5 out of 5 strength upper and lower extremities, no pronator drift, no truncal ataxia Psych: Appropriate mood and affect
[2022-02-11] MEDS: Omnipaque 350 MG/ML 100 ML BTL IJ (18:55)
--- NOTE | 2022-02-11 19:00 | DI.CT_ITS ---
Exam(s) CT BRAIN NECK CTA EXAM: CT BRAIN NECK CTA CLINICAL HISTORY: expressive aphasia, hx of afib on AC. TECHNIQUE: Imaging Protocol: Axial CT angiography was performed with multi-slice acquisition and mu lti-planar and/or 3D reconstructions. CONTRAST MATERIAL: Intravenous: Omnipaque 350 Contrast volume:structured data in ml COMPARISON: No exams were available for comparison FINDINGS: CTA Neck W: Aortic arch anatomy: The aortic arch anatomy is conventional and there is no significant stenosis at the origin of the great vessels off of the aortic arch. No intimal flap evident. Anterior circulation: Both common carotid arteries ascend with normal luminal diameters. At the level the carotid bulbs and proximal internal carotid arteries there is minimal plaque without hemodynamically significant stenosis evident. Both internal carotid arteries are nicely patent in the upper neck and also demonstrated be patent in the skull base-carotid canals. Posterior circulation: Vertebral arteries originated conventional fashion off of the subclavian arteries and there is no obv ious stenosis at the origin of the vertebral arteries. Left vertebral artery is dominant. At the skull base the basilar artery is formed by the left vertebral artery. Right vertebral artery terminates as the right posterior inferior cerebellar artery. CTA Brain W: Anterior circulation: Both internal carotid arteries are patent in the skull base-carotid canals as well as within the cave rnous sinuses. The supraclinoid aspects of the ICAs are patent. Both A1 segments are patent as are the anterior cer ebral arteries and there is no evidence of aneurysm at the level of the anterior communicating artery . Both middle cerebral arteries are patent with no evidence of significant stenosis nor intraluminal th rombus. There also no aneurysms of these vessels. Posterior circulation: Basilar artery is patent. Distally gives off patent superior cerebellar arteries Above this level the basilar artery terminates as patent right posterior cerebral artery. The left p osterior cerebral artery is predominantly supplied by posterior communicating artery on the left side of the [id number]-[id number]. There is no stenosis nor occlusion of the posterior cerebral arteries. There is no evidence of aneurysm at the tip of the basilar artery nor elsewhere in the [id number] is. CT BRAIN: There is no evidence of intracranial hemorrhage, mass effect, or shift of midline structures. There are no extra-axial fluid collections. Ventricles are not enlarged or shifted. There are no ring enh ancing lesions in the brain and no abnormal meningeal enhancement. IMPRESSION: 1. Patent carotid arteries in the neck. No hemodynamically significant stenosis. No aneurysms. 2. Patent vertebral arteries. Left vertebral artery is dominant. 3. Patent intracranial arteries. The left posterior cerebral artery is predominantly fed by a maintenance and repair worker ior communicating artery on the left side of the [id number]. 4. No acute intracranial findings. 5. If clinically indicated follow-up MRI/MRA can be performed. RADIATION DOSE DELIVERED: 1,998.84mGy.cm Total DLP DATA REPOSITORY: All CT scans at this facility are submitted to the National Radiology Data Registry (NRDR) Dose Index Registry (DIR) with the [employer] (ACR). RADIATION OPTIMIZATION: All CT scans at this facility use at least one of these dose optimization te chniques: automated exposure control; mA and/or kV adjustment per patient size (includes targeted exa ms where dose is matched to clinical indication); or iterative reconstruction.
--- NOTE | 2022-02-11 19:16 | DI.VRAD_ITS ---
PROCEDURE INFORMATION: Exam: CTA Head With Contrast, Arteriography Exam date and time: 02/11/2022 6:49 PM Age: 61 years old Clinical indication: Other: Expressive aphasia; Patient HX: HX of afib on anticoagulants TECHNIQUE: Imaging protocol: Computed tomographic angiography of the head with contrast. Exam focused on the arteries. 3D rendering (Not supervised by radiologist): MIP and/or 3D reconstructed images were created by the technologist. Radiation optimization: All CT scans at this facility use at least one of these dose optimization techniques: automated exposure control; mA and/or kV adjustment per patient size (includes targeted exams where dose is matched to clinical indication); or iterative reconstruction. Contrast material: OMNIPAQUE 350; Contrast volume: 85 ml; Contrast route: INTRAVENOUS (IV); COMPARISON: No relevant prior studies available. FINDINGS: ANTERIOR CIRCULATION: Right internal carotid artery: Intracranial segment is patent with no significant stenosis. No aneurysm. Right middle cerebral artery: No occlusion or significant stenosis. No aneurysm. Right anterior cerebral artery: No occlusion or significant stenosis. No aneurysm. Left internal carotid artery: Intracranial segment is patent with no significant stenosis. No aneurysm. Left middle cerebral artery: No occlusion or significant stenosis. No aneurysm. Left anterior cerebral artery: No occlusion or significant stenosis. No aneurysm. POSTERIOR CIRCULATION: Right vertebral artery: No occlusion or significant stenosis. No aneurysm. Left vertebral artery: No occlusion or significant stenosis. No aneurysm. Basilar artery: No occlusion or significant stenosis. No aneurysm. Right posterior cerebral artery: No occlusion or significant stenosis. No aneurysm. Left posterior cerebral artery: No occlusion or significant stenosis. No aneurysm. Brain: No definite mass, mass effect, or midline shift. Cerebral ventricles: No ventriculomegaly. Bones/joints: Unremarkable. No acute fracture. Soft tissues: Unremarkable. IMPRESSION: No large vessel stenosis or occlusion. PROCEDURE INFORMATION: Exam: CTA Neck With Contrast Exam date and time: 02/11/2022 6:49 PM Age: 61 years old Clinical indication: Other: Expressive aphasia; Patient HX: HX of afib on anticoagulants TECHNIQUE: Imaging protocol: Computed tomographic angiography of the neck with contrast. 3D rendering (Not supervised by radiologist): MIP and/or 3D reconstructed images were created by the technologist. Radiation optimization: All CT scans at this facility use at least one of these dose optimization techniques: automated exposure control; mA and/or kV adjustment per patient size (includes targeted exams where dose is matched to clinical indication); or iterative reconstruction. Contrast material: OMNIPAQUE 350; Contrast volume: 85 ml; Contrast route: INTRAVENOUS (IV); COMPARISON: No relevant prior studies available. FINDINGS: Right common carotid artery: No stenosis. No dissection or occlusion. Right internal carotid artery: No stenosis of the extracranial segment. No dissection or occlusion. Right external carotid artery: No occlusion or stenosis of the origin. Left common carotid artery: No stenosis. No dissection or occlusion. Left internal carotid artery: No stenosis of the extracranial segment. No dissection or occlusion. Left external carotid artery: No occlusion or stenosis of the origin. Right vertebral artery: No stenosis. No dissection or occlusion. Left vertebral artery: No stenosis. No dissection or occlusion. Soft tissues: Normal. No significant soft tissue swelling. Bones/joints: No acute fracture. IMPRESSION: No stenosis or occlusion. REFERENCES: NASCET CRITERIA. The degree of stenosis in the cervical segment of the internal carotid artery is based on NASCET criteria. Normal is no stenosis. Mild is less than 50% stenosis. Moderate is 50-69% stenosis. Severe is 70% to 99% stenosis. Total occlusion is no detectable patent lumen. Dictated and Authenticated by: Zhao Perez MD. Ordering:NICO Cortes MD
[2022-02-11 19:19] LABS: Abs Immature Grans 0.04 10^3/uL (0.0-0.06); Absolute Eosinophil Count 0.14 10^3/uL (0.0-0.7); Absolute Lymphocyte Count 2.46 10^3/uL (1.2-3.4); Absolute Monocyte Count 1.04 10^3/uL (0.1-0.8); Absolute Neutrophil Count 6.49 10^3/uL (1.2-6.7); Eosinophils % 1.4; HCT 45.8 % (36.0-46.0); HGB 14.9 g/dL (11.2-15.7); Immature Grans % 0.4; MCH 31.4 pg (27.0-33.0); MCHC 32.5 % (32.0-36.0); MCV 96 fL (80-95); MPV 9.6 fL (8.0-11.0); Monocytes % 10.1; Neutrophils % 63.1; Platelet Count 301 10^3/uL (130-400); RBC 4.75 10^6/uL (3.93-5.22); RDW 14.3 % (11.7-14.6); RDW-SD 50.7 fL; WBC 10.27 10^3/uL (4.4-10.8)
[2022-02-11 19:32] LABS: INR 2.2 (0.9-1.1); PTT Activated 29.3 sec (21.0-27.5); Prothrombin Time 20.9 sec (9.3-11.0)
[2022-02-11 19:33] LABS: ALT 21 U/L (14-59); AST 30 U/L (15-37); Albumin 3.7 g/dL (3.4-5.0); Alkaline Phosphatase 172 U/L (46-116); Anion Gap 9.2 mmol/L (3-11); BUN 17 mg/dL (7-18); CO2 28.8 mmol/L (21.0-32.0); CREATININE 1.1 mg/dL (0.55-1.02); Calcium 8.5 mg/dL (8.5-10.1); Chloride 100 mmol/L (98-107); Estimated GFR 57.88 (mL/min/1.73m2); Glucose 154 mg/dL (74-106); Sodium 138 mmol/L (136-145); Total Protein 7.7 g/dL (6.4-8.2)
[2022-02-11 19:37] LABS: ETHANOL BLOOD < 3.0 mg/dL (<10)
[2022-02-11 19:38] LABS: Potassium 2.8 mmol/L (3.5-5.1)
[2022-02-11 20:04] LABS: *AMPHETAMINES SCREEN URINE Negative (Negative); *BARBITURATES SCREEN URINE Negative (Negative); *BENZODIAZEPINES SCREEN URINE Negative (Negative); Cannabinoids THC Negative (Negative); Cocaine Screen,Urine Negative (Negative); METHADONE URINE SCREEN Negative (Negative); OPIATES URINE SCREEN Negative (Negative); Tricyclic Antidepressants Negative (Negative)
[2022-02-11] MEDS: POTASSIUM CHLORIDE 20 MEQ/100 ML BAG 50 MEQ IVPB (20:06)
[2022-02-11] MEDS: Aspirin 81 MG CHEW PO (21:01)
[2022-02-11 21:27] LABS: Lab Add On Test DONE
[2022-02-11 21:51] LABS: Hemoglobin A1C 6.3 % (<5.7)
[2022-02-11 21:51] LABS: Calculated LDL 104 mg/dL (<100); Cholesterol 165 mg/dL (<200); HDL Cholesterol 42 mg/dL (40-60); Triglyceride 96 mg/dL (<150)
--- NOTE | 2022-02-11 22:04 | HPE_ITS ---
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 (2) Primary cardiomyopathy: Status: Chronic Assessment and plan: Previous cardiac arrest. Echocardiogram on 11/13/20 showed an EF of 60% with a small apical aneurysm. RV global systolic function was mildly reduced. Est pulmonary artery pressure of 49. No significant valvular heart disease. She takes lasix and metoprolol. Holding metoprolol tonight then restart in AM if BP is adequate to support. Restart lasix in AM. (3) Renal insufficiency: Status: Chronic Assessment and plan: Stable. Creatinine 1.1; within her normal range it appears. (4) Hx of cardiac arrest: Assessment and plan: Has AICD. Has not c/o CP/palpitations. (5) Chronic atrial flutter: Status: Chronic Assessment and plan: Has pacemaker; V-paced. On coumadin. (6) Expressive aphasia: Status: Acute Assessment and plan: Comprehension is normal. Follows commands appropriately. When asked what town she is in she answers with the name of a [employer] co. Gives her birthdate when asked what hospital she is in. No previous known CVA. Toxicology screen and Etoh level negative. MRI would be appropriate but not available over the week-end. Consider repeat CT in 48 hours. Aspirin daily. Lipid panel. Telemetry. PT. If still in hospital on Monday; echocardiogram and neurology consult (7) Hypokalemia: Status: Acute Assessment and plan: Likely related to lasix usage. Replete with IV and oral K. Monitor. History of Present Illness History of Present Illness Chief Complaint: Expressive aphasia Narrative: This is a 61 yo female with a PMH of atrial fibrillation, chronic atrial flutter on AC, cardiomyopathy, VFib arrest / AICD, renal insufficiency. She was brought to the EMS after family noted that she was making no sense when conversing with a family member on the phone. This occurred 1/2 - 1 hour prior to arrival. In the ED her vital signs were unremarkable. Cardiac monitoring showed aflutter, V- paced. UA negative, glucose 154, A1c 6.3. creatinine 1.1, K 2.8. INR 2.2. WBC count 10. Hgb 14.9. She was noted to have expressive aphasia; for example when asked what the date was she gave her birthday. No focal motor deficits noted. CTA head/neck negative for acute findings. ED physician spoke with neurology at [facility]; they suggested admission, aspirin daily, MRI and further neuro evaluation. Not a tPA candidate d/t taking warfarin. Review of Systems All systems reviewed & are unremarkable except as noted in HPI and below PFSH All Active Problems (Updated 02/11/22 @ 22:42 by Sebastian Nichole MD) Hypokalemia (Acute) Expressive aphasia (Acute) Aphasia (Acute) COVID (Acute ~08/18/21) History of abnormal cervical Papanicolaou smear (Acute) History of HPV infection (Acute) CAP (community acquired pneumonia) (Acute) URI (upper respiratory infection) (Acute) Vaginal atrophy (Acute) 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) Abnormal Pap smear of cervix (Acute) Allergic rhinitis (Chronic 01/28/13) Zyrtec plus prn Flonase Atrial fibrillation (Chronic 05/10/11) 06/12 pul vein isolation/ablation [facility]; repeat [facility] 08/18/1208/13 LASHA EF 65% Chronic atrial flutter (Chronic 07/30/14) 06/12 pul vein isolation/ablation [facility]; repeat [facility] 08/18/1208/13 LASHA EF 65% Hot flashes (Chronic 07/22/13) RX Gabapentin [facility] current use of anticoagulants with INR goal of 2.0-3.0 (Chronic 07/11/12) Home monitoring Primary cardiomyopathy (Chronic 05/10/11) Hereditary; AICD; hx V Fib arrest; AVJ ablation (05/2013); successful' ICD; ECHO [facility] 12/2014 EF 58% diastolic CHF Dr Russo Cardiology [facility], Echocardiogram 07/26/18 [facility], 05/04/20 echo at [facility] 05/21/20 F/U [facility] [place] Cardiolodgy, 04/06/21 Outpt Stress Test done Renal insufficiency (Chronic 07/16/15) 07/2015 US kidney NL Dysuria (Acute) Routine general medical examination at a health care facility (Acute) Medical History Afib Hx of cardiac arrest 2005 ICD (implantable cardioverter-defibrillator) in place Normal colonoscopy (~06/2019) Surgical History Hx of prior ablation treatment Recurrent major depression in partial remission (01/01/11) [facility] pt. denies this Recurrent major depression in partial remission (08/01/12) [facility] Family History Father , [place] Alcohol use disorder Heart disease Sister Afib Heart disease Uncle Afib Heart disease Social History Smoking/Tobacco Use Status: Former Tobacco Use Quit Date: 04/03/89 Tobacco: How many years used: 3 Quit status: quit date established Smoking risk assessment performed?: Yes Alcohol Intake: current Alcohol Intake frequency: holidays/special occasions only Drug use: Never Substance use type: does not use Adopted: No Caregiver/Support person: No Foster care: No Household members: none Housing: house Number of Children: 2 Education Level: high school Do you need help understanding health information?: Rarely 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 Pets and animals: Yes Pets and animals: dog(s) Sexually active: No Do you think of yourself as: straight/heterosexual Current gender identity: female What is your relationship status?: How often do you talk on the phone with friends or family?: three or more times per week How often do you get together with friends or relatives?: three or more times per week Do you belong to any clubs or organized social groups?: yes Panel score (0-1 are the most socially isolated patients): 2 What type of physical activity do you participate in: walking Duration: 15-30 minutes/day Frequency: 5-6 times per week Shima/Faith: Baptism Special shima needs: No Seatbelt use: always Helmet use: Yes Drive intox or ride w/intox helper driver: No Do you feel safe at home: Yes Do you feel safe in your relationship?: Yes Additional Social history: not in current relationship Meds Allergies and Home Medications Allergies Allergy/AdvReac Type Severity Reaction Status Date / Time apple Allergy Severe Verified 02/11/22 18:48 disopyramide phosphate Allergy Severe VT Verified 02/11/22 18:48 [From Norpace] Penicillins Allergy Intermediate Skin Rash Verified 02/11/22 18:48 chlorpheniramine Allergy Verified 02/11/22 18:48 peach Allergy Verified 02/11/22 18:48 walnut Allergy Verified 02/11/22 18:48 Home Medications Medication Instructions Recorded Confirmed Type loratadine 10 mg tablet 10 mg PO DAILY 07/12/19 02/11/22 History albuterol sulfate 90 mcg/actuation 2 puff inhalation Q4H PRN PRN 04/16/20 02/11/22 Rx aerosol inhaler (ProAir HFA) bronchospasm ##1 warfarin 5 mg tablet 5 mg PO DAILY #7 tabs 10/12/20 02/11/22 Rx guaifenesin 100 mg/5 mL oral 200 mg (10 mL) PO Q4H PRN cough 11/19/20 02/11/22 Rx liquid (Mucinex Fast-Max Chest #473 mL Congestion) furosemide 40 mg tablet See Rx Instructions PO DAILY #270 02/16/21 02/11/22 Rx tab-caps gabapentin 600 mg tablet 600 mg PO HS #90 tabs 03/29/21 02/11/22 Rx metoprolol tartrate 25 mg tablet See Rx Instructions .Route 08/11/21 02/11/22 Rx .COMPLEX #180 tabs trazodone 50 mg tablet 50 mg PO QHS PRN sleep #30 tabs 09/13/21 02/11/22 Rx warfarin 5 mg tablet See Rx Instructions .Route 11/30/21 02/11/22 Rx .COMPLEX #135 tabs Exam Narrative Exam Narrative: Patient appears her stated age. Pleasant. Const General: cooperative and no acute distress Nutritional Appearance: average body habitus Orientation: alert [facility] Head: normocephalic and atraumatic Ears: hearing grossly normal bilaterally Eyes General: appearance normal, both eyes and all related structures Sclera: sclerae normal Resp Effort & Inspection: normal respiratory effort Auscultation: clear to auscultation bilaterally Cardio Rate: regular rate Rhythm: regular rhythm Heart Sounds: S1 normal and S2 normal GI Palpation: soft and nontender Skin General skin exam: no rashes or lesions noted Neuro General: no focal motor deficits Cranial Nerves: PERRL, no nystagmus and facial strength normal Cognition: normal cognition Speech: expressive aphasia Gait: normal gait Motor: muscle tone normal throughout Extrem General: no pedal edema and no calf tenderness Psych Appearance: grossly normal Speech and Movement: speech clear Affect: normal affect Results Labs Result diagrams: 02/11/22 19:12 02/11/22 19:12 Labs: Laboratory Results - last 24 hr 02/11/22 02/11/22 02/11/22 19:12 19:12 19:12 WBC 10.27 RBC 4.75 Hgb 14.9 Hct 45.8 MCV 96 H MCH 31.4 MCHC 32.5 RDW 14.3 Plt Count 301 MPV 9.6 Immature Gran % 0.4 Neutrophils % 63.1 Lymphocytes % 24.0 Monocytes % 10.1 Eosinophils % 1.4 Basophils % 1.0 Nucleated RBC % 0.0 Absolute Neutrophils 6.49 Absolute Lymphocytes 2.46 Absolute Monocytes 1.04 H Absolute Eosinophils 0.14 Absolute Basophils 0.10 PT 20.9 H INR 2.2 H APTT 29.3 H Sodium 138 Potassium 2.8 L* Chloride 100 Carbon Dioxide 28.8 Anion Gap 9.2 BUN 17 Creatinine 1.1 H Est GFR (CKD-EPI 2020) 57.88 Glucose 154 H Hemoglobin A1c Calcium 8.5 Total Bilirubin 1.0 AST 30 ALT 21 Alkaline Phosphatase 172 H Total Protein 7.7 Albumin 3.7 Triglycerides Total Cholesterol LDL Cholesterol, Calc HDL Cholesterol Urine Opiates Screen Urine Methadone Screen Ur Barbiturates Screen Ur Tricyclics Screen Ur Amphetamines Screen U Benzodiazepines Scrn Urine Cocaine Screen Ur THC Screen Ethyl Alcohol < 3.0 Add-On Test Request 02/11/22 02/11/22 02/11/22 19:12 19:12 19:35 WBC RBC Hgb Hct MCV MCH MCHC RDW Plt Count MPV Immature Gran % Neutrophils % Lymphocytes % Monocytes % Eosinophils % Basophils % Nucleated RBC % Absolute Neutrophils Absolute Lymphocytes Absolute Monocytes Absolute Eosinophils Absolute Basophils PT INR APTT Sodium Potassium Chloride Carbon Dioxide Anion Gap BUN Creatinine Est GFR (CKD-EPI 2020) Glucose Hemoglobin A1c 6.3 H Calcium Total Bilirubin AST ALT Alkaline Phosphatase Total Protein Albumin Triglycerides Total Cholesterol LDL Cholesterol, Calc HDL Cholesterol Urine Opiates Screen Negative Urine Methadone Screen Negative Ur Barbiturates Screen Negative Ur Tricyclics Screen Negative Ur Amphetamines Screen Negative U Benzodiazepines Scrn Negative Urine Cocaine Screen Negative Ur THC Screen Negative Ethyl Alcohol Add-On Test Request DONE 02/11/22 21:14 WBC RBC Hgb Hct MCV MCH MCHC RDW Plt Count MPV Immature Gran % Neutrophils % Lymphocytes % Monocytes % Eosinophils % Basophils % Nucleated RBC % Absolute Neutrophils Absolute Lymphocytes Absolute Monocytes Absolute Eosinophils Absolute Basophils PT INR APTT Sodium Potassium Chloride Carbon Dioxide Anion Gap BUN Creatinine Est GFR (CKD-EPI 2020) Glucose Hemoglobin A1c Calcium Total Bilirubin AST ALT Alkaline Phosphatase Total Protein Albumin Triglycerides 96 Total Cholesterol 165 LDL Cholesterol, Calc 104 H HDL Cholesterol 42 Urine Opiates Screen Urine Methadone Screen Ur Barbiturates Screen Ur Tricyclics Screen Ur Amphetamines Screen U Benzodiazepines Scrn Urine Cocaine Screen Ur THC Screen Ethyl Alcohol Add-On Test Request Last Vital Signs Temp 36.4 C L 02/11/22 18:45 Pulse 68 02/11/22 21:30 Resp 15 02/11/22 21:30 BP 110/71 02/11/22 21:30 Pulse Ox 96 02/11/22 21:30
[2022-02-11] MEDS: Potassium Chloride 20 MEQ TABCR PO (22:37)
[2022-02-11] MEDS: Atorvastatin 40 MG TAB 80 MG PO (22:37)
[2022-02-11] MEDS: Gabapentin 600 MG TAB PO (22:37)
[2022-02-12 01:04] LABS: Source Nasal/Nares
[2022-02-12 01:34] LABS: COVID-19 PCR Negative (Negative)
[2022-02-12 03:17] VITALS: BP 104/73; PULSE 70; RESP 18; TEMP 36.2; O2SAT 98
[2022-02-12 06:24] LABS: INR 2.1 (0.9-1.1); Prothrombin Time 20.5 sec (9.3-11.0)
[2022-02-12 06:34] LABS: Anion Gap 6.8 mmol/L (3-11); BUN 14 mg/dL (7-18); CO2 26.2 mmol/L (21.0-32.0); CREATININE 0.9 mg/dL (0.55-1.02); Calcium 8.3 mg/dL (8.5-10.1); Chloride 107 mmol/L (98-107); Estimated GFR 73.64 (mL/min/1.73m2); Glucose 94 mg/dL (74-106); Magnesium 1.6 mg/dL (1.8-2.4); Potassium 3.9 mmol/L (3.5-5.1); Sodium 140 mmol/L (136-145)
[2022-02-12 07:24] VITALS: PULSE 75
[2022-02-12 08:05] VITALS: BP 110/74; PULSE 75; RESP 18; TEMP 36.7; O2SAT 95
[2022-02-12] MEDS: Furosemide 40 MG TAB 80 MG PO (08:47)
[2022-02-12] MEDS: Potassium Chloride 20 MEQ TABCR PO ×2 (08:47→20:06)
[2022-02-12] MEDS: Aspirin 81 MG CHEW PO (08:47)
[2022-02-12] MEDS: Metoprolol 12.5 MG TAB PO ×2 (08:47→20:06)
--- NOTE | 2022-02-12 08:56 | PDOC.CMIN ---
- If Service Date Differs Date of service: 02/12/22 Time of Service: 08:56 Care Management Initial Assess REASON FOR HOSPITALIZATION:: Confusional State. PAST MEDICAL HISTORY/PAST SURGICAL HISTORY:: All Active Problems: Hypokalemia (Acute), Expressive aphasia (Acute),. Aphasia (Acute), COVID (Acute ~08/18/21), History of abnormal cervical Papanicolaou smear (Acute), History of HPV infection (Acute), CAP (community acquired pneumonia) (Acute), URI (upper respiratory infection) (Acute), Vaginal atrophy (Acute), 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), Abnormal Pap smear of cervix (Acute), Allergic rhinitis (Chronic 01/28/13) - Zyrtec plus prn Flonase, Atrial fibrillation (Chronic 05/10/11) - 06/12 pul vein isolation/ablation [facility]; repeat [facility] 08/18/12; 08/13 LASHA EF 65%, Chronic atrial flutter (Chronic 07/30/14) - 06/12 pul vein isolation/ablation [facility]; repeat [facility] 08/18/1208/13 LASHA EF 65%, Hot flashes (Chronic 07/22/13) - RX Gabapentin, detention current use of anticoagulants with INR goal of 2.0-3.0 (Chronic 07/11/12) - Home monitoring, Primary cardiomyopathy (Chronic 05/10/11) - Hereditary; AICD; hx V Fib arrest; AVJ ablation (05/2013); successful' ICD; ECHO [facility] 12/2014 EF 58%; diastolic CHF Dr Russo Cardiology [facility], Echocardiogram 07/26/18 [facility], 05/04/20 echo at [facility]; 05/21/20 F/[place] [facility]gy; 04/06/21 Outpt Stress Test done, Renal insufficiency (Chronic 07/16/15) - 07/2015 US kidney NL, Dysuria (Acute), and Routine general medical examination at a health care facility (Acute). Medical History: Afib, Hx of cardiac arrest - 2005, ICD (implantable cardioverter-defibrillator) in place, and Normal colonoscopy (~06/2019). Surgical History: Hx of prior ablation treatment, Recurrent major depression in partial remission (01/01/11) - [facility] - pt. denies this, and Recurrent major depression in partial remission (08/01/12). [facility] PREVIOUS FUNCTIONAL STATUS/SOCIAL/FAMILY SUPPORTS:: Nneka lives alone in [place], [place]. 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 She reports having a supportive family, including her son, Andrey, who resides in [place] and her sister, Lulu, who lives nearby in [place]. Nneka is independent at baseline. CURRENT FUNCTIONAL STATUS:: Nneka is sitting up in bed when CM comes to meet with her. Her sister, Lulu, and Lulu's are present in the room. Nneka is pleasant and openly engages in conversation, though she continues to struggle with expressive aphasia, as she is having difficulty putting her thoughts into words. ADVANCE DIRECTIVES:: On file; son Andrey Garduno is appointed as HCA. Has patient been provided with info about the portal/API?: Yes Did the patient sign up for the portal?: Yes (Previously enrolled) CODE STATUS:: Full Code INSURANCE COVERAGE / FINANCIAL ISSUES:: [employer]. CURRENT HOME/COMMUNITY SERVICES/EQUIPMENT:: No current home or community services. She has a pacemaker defibrilator and a medic alert bracelet. PRIMARY CARE PHYSICIAN:: Carlita Zimmerman aprn. POTENTIAL DISCHARGE NEEDS:: Follow up appointments with PCP and possibly neurology and/or cardiology. PATIENT/FAMILY EDUCATION NEEDS:: Review of discharge instructions including medications and limitations; discuss Ask Me Three. ANTICIPATED BARRIERS TO DISCHARGE:: None identified at this time. TRANSPORTATION:: Via private vehicle with her son, Andrey. PLAN:: Nneka will discharge home with no services when medically cleared by provider. She will follow up with her PCP and plan of care as prescribed. She will be driven home by her son, Andrey, via private vehicle when ready. CM will continue to support Nneka and any planning needs.
[2022-02-12] MEDS: MAGNESIUM SULFATE 2 GM/50 ML BAG IVPB (09:03)
--- NOTE | 2022-02-12 11:14 | PT.INIE ---
Date of service: 02/12/22 Time of Service: 10:30 PT Notes Visit Reasons: Confusional State Inpatient Physical Therapy Evaluation Date: 02/12/22 Referring Doctor: Sebastian Nichole MD PT Orders: PT CONSULT: Non-urgen Precautions: Standard Patient Profile/Admitting Diagnosis: 61 yo female with a PMH of atrial fibrillation, chronic atrial flutter on AC, cardiomyopathy, VFib arrest / AICD, renal insufficiency.? She was brought to the EMS after family noted that she was making no sense when conversing with a family member on the phone.??Admission recommended for further evaluation. Negative CTA of head/neck, neurology at [facility] recommended admission. PMHX: All Active Problems?(Updated 02/11/22 @ 22:42 by Sebastian Nichole MD) Hypokalemia (Acute) Expressive aphasia (Acute) Aphasia (Acute) COVID (Acute ~08/18/21) History of abnormal cervical Papanicolaou smear (Acute) History of HPV infection (Acute) CAP (community acquired pneumonia) (Acute) URI (upper respiratory infection) (Acute) Vaginal atrophy (Acute) 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) Abnormal Pap smear of cervix (Acute) Allergic rhinitis (Chronic 01/28/13) Zyrtec plus prn Flonase Atrial fibrillation (Chronic 05/10/11) 06/12 pul vein isolation/ablation [facility]; repeat [facility] 08/18/1208/13 LASHA EF 65% Chronic atrial flutter (Chronic 07/30/14) 06/12 pul vein isolation/ablation [facility]; repeat [facility] 08/18/12? 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 with INR goal of 2.0-3.0 (Chronic 07/11/12) Home monitoring Primary cardiomyopathy (Chronic 05/10/11) Hereditary; AICD; hx V Fib arrest; AVJ ablation (05/2013); successful' ICD; ECHO [facility] 12/2014 EF 58% diastolic CHF Dr Russo Cardiology [facility], Echocardiogram 07/26/18 [facility], 05[facility]04/20 echo at [facility] 05/21/20 F/[place] [facility], 04/06/21 Outpt Stress Test done Renal insufficiency (Chronic 07/16/15) 07/2015 US kidney NL Dysuria (Acute) Routine general medical examination at a health care facility (Acute) Medical History? Afib Hx of cardiac arrest 2006ICD (implantable cardioverter-defibrillator) in place Normal colonoscopy (~06/2019) Surgical History? Hx of prior ablation treatment Recurrent major depression in partial remission (01/01/11) [facility] pt. denies thisRecurrent major depression in partial remission (08/01/12) [facility] Social History/Home Situation: [] Current Functional Limitations: [] Equipment Owned/DME: [] Subjective: Denies pain, dizziness. Feels normal. Objective: General Observation: Lying in hospital bed, appears in no distress. Family members, sister and brother in law present. IV. Demonstrates expressive aphasia - struggles to say the name of town her son lives in (can't recall it, then say [place], when meaning [place]), mixing up words, and tells me she has two sons, both named Andrey, then later mentions her daughter Christine without realizing the mistake. Other various mis speakings throughout. She does demonstrate some difficult following directions, such as standing on on foot, she put feet together. When asking her to push into me for muscle testing, she pulled away. But, for the most part she did well. Mental Status: Alert to person, , and place. Pain: 0/10 Vital Signs: Stable, per nursing documentation ROM: Right Upper Extremity: WNL Left Upper Extremity: WNL Right Lower Extremity: WNL Left Lower Extremity: WNL Strength: Right Upper Extremity: WNL Left Upper Extremity: WNL Right Lower Extremity: WNL Left Lower Extremity: WNL Sensation: WNL Bed Mobility/Transfers: Independent with bed mobility, transfers Gait: Demonstrates safety and independent ability, with holding of IV pole by default - able to safely climb and descend 4 stairs with rail Balance: Static Sitting: Good Dynamic Sitting: Good Static Standing: Good Dynamic Standing: Good Special Tests: Mobility Limitations Standardized Measure [facility] AM-PAC 6 clicks Basic Mobility Inpatient Short Form: 0% disability Informed Consent/Education: Patient instructed in purpose of PT consult and plan of care. Assessment: Patient is a 61 year old female referred to physical therapy services with the diagnosis of expressive aphasia with history of cardiac arrest, chronic anti-coagulations and cardiomyopathy. She has been admitted for further evaluation given her expressive aphasia. From the physical therapy stand point she is doing well, with no findings of instability, functional loss, or strength loss. She is appropriate to ambulate and move about the room, and I encourage it to limit deconditioning during her stay, but with the supervision of family or medical staff while doing so given her unclear mental clarity in setting of expressive aphasia. She does not require skilled PT intervention, as she can be mobile with supervision otherwise. Patient is assessed as a Low 15265 complexity based on the following: History: See comorbidities Examination: See assessment Presentation: Evolving Decision Making: Easy Plan of Care/Treatment Plan: Discharged from inpatient PT care, with no service from physical therapy profession felt to be needed upon discharge. Discharge home appropraite from PT stand point. TREATMENT CODE/TIME: [id number], 30 min, 10:30-11:00
[2022-02-12 15:00] VITALS: PULSE 73
[2022-02-12 15:05] VITALS: BP 109/73; PULSE 73; RESP 18; TEMP 37; O2SAT 97
[2022-02-12] MEDS: Furosemide 40 MG TAB PO (16:14)
--- NOTE | 2022-02-12 17:49 | PGE_ITS ---
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 (2) Primary cardiomyopathy: Status: Chronic Assessment and plan: Previous cardiac arrest. Echocardiogram on 11/13/20 showed an EF of 60% with a small apical aneurysm. RV global systolic function was mildly reduced. Est pulmonary artery pressure of 49. No significant valvular heart disease. On lasix and metoprolol. (3) Renal insufficiency: Status: Chronic Assessment and plan: Stable. Creatinine 1.1; within her normal range it appears. (4) Hx of cardiac arrest: Assessment and plan: Has AICD. Has not c/o CP/palpitations. (5) Chronic atrial flutter: Status: Chronic Assessment and plan: Has pacemaker; V-paced. On coumadin. (6) Expressive aphasia: Status: Acute Assessment and plan: No previous known CVA. Toxicology screen and Etoh level negative. MRI would be appropriate but not available over the weekend. repeat CT pending for am Aspirin daily. Lipid panel. Telemetry. PT. If still in hospital on Monday; echocardiogram and neurology consult (7) Hypokalemia: Status: Acute Assessment and plan: Likely related to lasix usage. Replete with IV and oral K. Monitor. discussed with Dr merino Subjective Subjective Patient reports: no new complaints, feels better, tolerating liquids well and tolerating a regular diet; denies shortness of breath or afebrile Objective Last Vital Signs Temp 37.0 C 02/12/22 15:05 Pulse 73 02/12/22 15:05 Resp 18 02/12/22 15:05 BP 109/73 02/12/22 15:05 Pulse Ox 97 02/12/22 15:05 Laboratory Results - last 24 hr 02/11/22 02/11/22 02/11/22 19:12 19:12 19:12 WBC 10.27 RBC 4.75 Hgb 14.9 Hct 45.8 MCV 96 H MCH 31.4 MCHC 32.5 RDW 14.3 Plt Count 301 MPV 9.6 Immature Gran % 0.4 Neutrophils % 63.1 Lymphocytes % 24.0 Monocytes % 10.1 Eosinophils % 1.4 Basophils % 1.0 Nucleated RBC % 0.0 Absolute Neutrophils 6.49 Absolute Lymphocytes 2.46 Absolute Monocytes 1.04 H Absolute Eosinophils 0.14 Absolute Basophils 0.10 PT 20.9 H INR 2.2 H APTT 29.3 H Sodium 138 Potassium 2.8 L* Chloride 100 Carbon Dioxide 28.8 Anion Gap 9.2 BUN 17 Creatinine 1.1 H Est GFR (CKD-EPI 2020) 57.88 Glucose 154 H Hemoglobin A1c Calcium 8.5 Magnesium Total Bilirubin 1.0 AST 30 ALT 21 Alkaline Phosphatase 172 H Total Protein 7.7 Albumin 3.7 Triglycerides Total Cholesterol LDL Cholesterol, Calc HDL Cholesterol Urine Opiates Screen Urine Methadone Screen Ur Barbiturates Screen Ur Tricyclics Screen Ur Amphetamines Screen U Benzodiazepines Scrn Urine Cocaine Screen Ur THC Screen Ethyl Alcohol < 3.0 COVID-19 Source SARS-CoV-2 (PCR) Add-On Test Request 02/11/22 02/11/22 02/11/22 19:12 19:12 19:35 WBC RBC Hgb Hct MCV MCH MCHC RDW Plt Count MPV Immature Gran % Neutrophils % Lymphocytes % Monocytes % Eosinophils % Basophils % Nucleated RBC % Absolute Neutrophils Absolute Lymphocytes Absolute Monocytes Absolute Eosinophils Absolute Basophils PT INR APTT Sodium Potassium Chloride Carbon Dioxide Anion Gap BUN Creatinine Est GFR (CKD-EPI 2020) Glucose Hemoglobin A1c 6.3 H Calcium Magnesium Total Bilirubin AST ALT Alkaline Phosphatase Total Protein Albumin Triglycerides Total Cholesterol LDL Cholesterol, Calc HDL Cholesterol Urine Opiates Screen Negative Urine Methadone Screen Negative Ur Barbiturates Screen Negative Ur Tricyclics Screen Negative Ur Amphetamines Screen Negative U Benzodiazepines Scrn Negative Urine Cocaine Screen Negative Ur THC Screen Negative Ethyl Alcohol COVID-19 Source SARS-CoV-2 (PCR) Add-On Test Request DONE 02/11/22 02/12/22 02/12/22 21:14 00:45 05:43 WBC RBC Hgb Hct MCV MCH MCHC RDW Plt Count MPV Immature Gran % Neutrophils % Lymphocytes % Monocytes % Eosinophils % Basophils % Nucleated RBC % Absolute Neutrophils Absolute Lymphocytes Absolute Monocytes Absolute Eosinophils Absolute Basophils PT INR APTT Sodium 140 Potassium 3.9 D Chloride 107 Carbon Dioxide 26.2 Anion Gap 6.8 BUN 14 Creatinine 0.9 Est GFR (CKD-EPI 2020) 73.64 Glucose 94 Hemoglobin A1c Calcium 8.3 L Magnesium 1.6 L Total Bilirubin AST ALT Alkaline Phosphatase Total Protein Albumin Triglycerides 96 Total Cholesterol 165 LDL Cholesterol, Calc 104 H HDL Cholesterol 42 Urine Opiates Screen Urine Methadone Screen Ur Barbiturates Screen Ur Tricyclics Screen Ur Amphetamines Screen U Benzodiazepines Scrn Urine Cocaine Screen Ur THC Screen Ethyl Alcohol COVID-19 Source Nasal/Nares SARS-CoV-2 (PCR) Negative Add-On Test Request 02/12/22 05:43 WBC RBC Hgb Hct MCV MCH MCHC RDW Plt Count MPV Immature Gran % Neutrophils % Lymphocytes % Monocytes % Eosinophils % Basophils % Nucleated RBC % Absolute Neutrophils Absolute Lymphocytes Absolute Monocytes Absolute Eosinophils Absolute Basophils PT 20.5 H INR 2.1 H APTT Sodium Potassium Chloride Carbon Dioxide Anion Gap BUN Creatinine Est GFR (CKD-EPI 2020) Glucose Hemoglobin A1c Calcium Magnesium Total Bilirubin AST ALT Alkaline Phosphatase Total Protein Albumin Triglycerides Total Cholesterol LDL Cholesterol, Calc HDL Cholesterol Urine Opiates Screen Urine Methadone Screen Ur Barbiturates Screen Ur Tricyclics Screen Ur Amphetamines Screen U Benzodiazepines Scrn Urine Cocaine Screen Ur THC Screen Ethyl Alcohol COVID-19 Source SARS-CoV-2 (PCR) Add-On Test Request
[2022-02-12] MEDS: Atorvastatin 40 MG TAB 80 MG PO (20:06)
[2022-02-12] MEDS: Gabapentin 600 MG TAB PO (21:14)
[2022-02-12 23:04] VITALS: BP 100/69; PULSE 70; RESP 18; TEMP 37.5; O2SAT 97
--- NOTE | 2022-02-13 | DI.CT_ITS ---
Exam(s) CT HEAD WO EXAM: CT HEAD WO CLINICAL HISTORY: aphasia. TECHNIQUE: Imaging Protocol: Axial computed tomography images with coronal and sagittal reformatted images were created and reviewed COMPARISON: CT CT BRAIN NECK CTA from 02/11/2022 FINDINGS: There are no skull fractures. There is no fluid in the visualized paranasal sinuses. There is now an area of abnormal hypodensity in the territory of the right middle cerebral artery, ri ght temporoparietal region consistent with ischemic infarct. There is no evidence of obvious hemorrhage, intra or extra-axial.. No shift of midline structures. Ventricles are not enlarged. No other areas of infarct are noted. IMPRESSION: Acute ischemic infarct in the territory of the right middle cerebral artery. I note that the virtual Radiology report states that there are hemorrhagic foci within the area of in farction. I recommend MRI to determine if there is truly an element of hemorrhage here. First read by [facility]. My final report called to [facility] hospitalist 02/13/2022 at 2:30 p.m. MRI recommended RADIATION DOSE DELIVERED: 686.52mGy.cm Total DLP DATA REPOSITORY: All CT scans at this facility are submitted to the National Radiology Data Registry (NRDR) Dose Index Registry (DIR) with the [employer] (ACR). RADIATION OPTIMIZATION: All CT scans at this facility use at least one of these dose optimization te chniques: automated exposure control; mA and/or kV adjustment per patient size (includes targeted exa ms where dose is matched to clinical indication); or iterative reconstruction.
[2022-02-13] MEDS: Acetaminophen 325 MG TAB PO (04:42)
[2022-02-13 06:28] LABS: Abs Immature Grans 0.02 10^3/uL (0.0-0.06); Absolute Basophil Count 0.08 10^3/uL (0.0-0.2); Absolute Eosinophil Count 0.17 10^3/uL (0.0-0.7); Absolute Lymphocyte Count 3.57 10^3/uL (1.2-3.4); Absolute Monocyte Count 1.01 10^3/uL (0.1-0.8); Absolute Neutrophil Count 4.11 10^3/uL (1.2-6.7); Basophils % 0.9; Eosinophils % 1.9; HCT 41.6 % (36.0-46.0); HGB 13.9 g/dL (11.2-15.7); Immature Grans % 0.2; Lymphocytes % 39.8; MCH 32.2 pg (27.0-33.0); MCHC 33.4 % (32.0-36.0); MCV 96 fL (80-95); MPV 9.9 fL (8.0-11.0); Monocytes % 11.3; Neutrophils % 45.9; Platelet Count 261 10^3/uL (130-400); RBC 4.32 10^6/uL (3.93-5.22); RDW 14.6 % (11.7-14.6); RDW-SD 51.8 fL; WBC 8.96 10^3/uL (4.4-10.8)
[2022-02-13 06:38] VITALS: BP 107/73; PULSE 70; RESP 20; TEMP 37.1; O2SAT 98
[2022-02-13 06:43] LABS: Prothrombin Time 19.5 sec (9.3-11.0)
[2022-02-13 07:04] LABS: Anion Gap 10.1 mmol/L (3-11); BUN 14 mg/dL (7-18); CO2 25.9 mmol/L (21.0-32.0); CREATININE 1.1 mg/dL (0.55-1.02); Calcium 8.9 mg/dL (8.5-10.1); Chloride 101 mmol/L (98-107); Estimated GFR 57.88 (mL/min/1.73m2); Glucose 94 mg/dL (74-106); Magnesium 1.9 mg/dL (1.8-2.4); Potassium 3.9 mmol/L (3.5-5.1); Sodium 137 mmol/L (136-145); Vitamin B12 590 pg/mL (193-986)
[2022-02-13 07:59] VITALS: PULSE 116
[2022-02-13] MEDS: Furosemide 40 MG TAB 80 MG PO (09:11)
[2022-02-13] MEDS: Metoprolol 12.5 MG TAB PO (09:11)
[2022-02-13] MEDS: Aspirin 81 MG CHEW PO (09:11)
[2022-02-13] MEDS: Potassium Chloride 20 MEQ TABCR PO ×2 (09:14→21:18)
--- NOTE | 2022-02-13 10:30 | DI.VRAD_ITS ---
PROCEDURE INFORMATION: Exam: CT Head Without Contrast Exam date and time: 02/13/2022 10:13 AM Age: 61 years old Clinical indication: Other: Aphasia TECHNIQUE: Imaging protocol: Computed tomography of the head without contrast. Radiation optimization: All CT scans at this facility use at least one of these dose optimization techniques: automated exposure control; mA and/or kV adjustment per patient size (includes targeted exams where dose is matched to clinical indication); or iterative reconstruction. COMPARISON: CT BRAIN NECK CTA 02/11/2022 6:49 PM FINDINGS: Brain: Approximally 4-5 cm area of recent infarct in the right parietal temporal region, with punctate hemorrhagic foci seen within the area of infarct. No midline shift. Cerebral ventricles: No ventriculomegaly. Paranasal sinuses: Visualized sinuses are unremarkable. No fluid levels. Mastoid air cells: Visualized mastoid air cells are well aerated. Bones/joints: Unremarkable. No acute fracture. Soft tissues: Unremarkable. Other findings: IMPRESSION: Recent infarct in the posterior right MCA territory with minimal hemorrhagic transformation. Dictated and Authenticated by: Deanna Woody MD. Ordering:ALDO Israel MD
[2022-02-13] MEDS: Normal Saline Flush 10 ML SYR (11:38)
[2022-02-13] MEDS: Normal Saline Flush 10 ML SYR IVP ×2 (11:38→21:21)
--- NOTE | 2022-02-13 14:56 | W.PM.PROGNOT ---
Date of Service Date of service: 02/13/22 Time of Service: 14:56 Assessment and Plan Assessment and plan (1) CVA (cerebral vascular accident): Status: Chronic Assessment and plan: CT this am: Recent infarct in the posterior right MCA territory with minimal hemorrhagic transformation. case discussed with DR Bridges from neurology at [facility] [place]. no further recommendations at this time. continue asa, coumadin and statin (2) [facility] current use of anticoagulants with INR goal of 2.0-3.0: Status: Chronic Assessment and plan: Cont coumadin and monitor INR. (3) Primary cardiomyopathy: Status: Chronic Assessment and plan: Previous cardiac arrest. Echocardiogram on 11/13/20 showed an EF of 60% with a small apical aneurysm. RV global systolic function was mildly reduced. Est pulmonary artery pressure of 49. No significant valvular heart disease. On lasix and metoprolol. (4) Renal insufficiency: Status: Chronic Assessment and plan: Stable. Creatinine 1.1; within her normal range it appears. (5) Hx of cardiac arrest: Assessment and plan: Has AICD. Has not c/o CP/palpitations. (6) Chronic atrial flutter: Status: Chronic Assessment and plan: Has pacemaker; V-paced. On coumadin. (7) Hypokalemia: Status: Acute Assessment and plan: Likely related to lasix usage. Replete with IV and oral K. Monitor. discussed with Dr merino Subjective Subjective Patient reports: no new complaints, feels better, tolerating liquids well, tolerating a regular diet, voiding w/o difficulty and afebrile Exam Narrative Exam Narrative: Patient appears her stated age. Pleasant. Const General: cooperative and no acute distress Nutritional Appearance: average body habitus Orientation: alert [facility] Head: normocephalic and atraumatic Ears: hearing grossly normal bilaterally Eyes General: appearance normal, both eyes and all related structures Sclera: sclerae normal Resp Effort & Inspection: normal respiratory effort Auscultation: clear to auscultation bilaterally Cardio Rate: regular rate Rhythm: regular rhythm GI Palpation: soft and nontender Skin General skin exam: no rashes or lesions noted Neuro General: no focal motor deficits Cranial Nerves: PERRL, no nystagmus and facial strength normal Cognition: normal cognition Speech: receptive aphasia (was pushing when repeatedly asked to pull her upper extremities. ) Gait: normal gait Motor: muscle tone normal throughout Extrem General: no pedal edema and no calf tenderness Psych Appearance: grossly normal Speech and Movement: speech clear Affect: normal affect Objective Last Vital Signs Temp 37.1 C 02/13/22 06:38 Pulse 116 H 02/13/22 07:59 Resp 20 02/13/22 06:38 BP 107/73 02/13/22 06:38 Pulse Ox 98 02/13/22 06:38 Laboratory Results - last 24 hr 02/13/22 02/13/22 02/13/22 05:56 05:56 05:56 WBC 8.96 RBC 4.32 Hgb 13.9 Hct 41.6 MCV 96 H MCH 32.2 MCHC 33.4 RDW 14.6 Plt Count 261 MPV 9.9 Immature Gran % 0.2 Neutrophils % 45.9 Lymphocytes % 39.8 Monocytes % 11.3 Eosinophils % 1.9 Basophils % 0.9 Nucleated RBC % 0.0 Absolute Neutrophils 4.11 Absolute Lymphocytes 3.57 H Absolute Monocytes 1.01 H Absolute Eosinophils 0.17 Absolute Basophils 0.08 PT 19.5 H INR 2.0 H Sodium 137 Potassium 3.9 Chloride 101 Carbon Dioxide 25.9 Anion Gap 10.1 BUN 14 Creatinine 1.1 H Est GFR (CKD-EPI 2020) 57.88 Glucose 94 Calcium 8.9 Magnesium 1.9 Vitamin B12 590
[2022-02-13 15:00] VITALS: PULSE 69
[2022-02-13 15:20] VITALS: BP 97/65; PULSE 73; RESP 18; TEMP 37.6; O2SAT 97
[2022-02-13] MEDS: Atorvastatin 40 MG TAB 80 MG PO (21:18)
[2022-02-13] MEDS: Gabapentin 600 MG TAB PO (21:21)
[2022-02-13 21:27] VITALS: BP 111/73; PULSE 76; RESP 16; TEMP 36.9; O2SAT 99
[2022-02-13 23:56] VITALS: BP 107/73; PULSE 70; RESP 18; TEMP 37.9; O2SAT 95
[2022-02-14] VITALS (11 sets, daily range): BP systolic 102–123; BP diastolic 70–80; PULSE 68–76; RESP 16–20; TEMP 36.7–38.5; O2SAT 96–99
--- NOTE | 2022-02-14 | DI.RAD_ITS ---
Exam(s) XR CHEST 2V PA LATERAL EXAM: XR CHEST 2V PA LATERAL CLINICAL HISTORY: fever TECHNIQUE: 2D digital imaging was performed. COMPARISON: CR CHEST 2 VIEWS PA,LAT from 04/26/2016 FINDINGS: HEART: Moderately enlarged. Pacemaker. Aorta: PULMONARY VASCULATURE: Normal. LUNGS: Clear. PLEURAL SPACE: No pleural effusion or pneumothorax. BONE:Unremarkable for age. IMPRESSION: No acute abnormality. DATA REPOSITORY: RADIATION DOSE DELIVERED:
[2022-02-14 06:52] LABS: INR 1.7 (0.9-1.1); Prothrombin Time 16.9 sec (9.3-11.0)
[2022-02-14] MEDS: Potassium Chloride 20 MEQ TABCR PO ×2 (07:46→20:40)
[2022-02-14] MEDS: Normal Saline Flush 10 ML SYR IVP ×2 (07:46→20:44)
[2022-02-14] MEDS: Aspirin 81 MG CHEW PO (07:46)
[2022-02-14] MEDS: Metoprolol 12.5 MG TAB PO ×2 (09:15→20:41)
[2022-02-14] MEDS: Furosemide 40 MG TAB 80 MG PO (09:15)
--- NOTE | 2022-02-14 09:33 | PDOC.CMPRO ---
- If Service Date Differs Date of service: 02/14/22 Time of Service: 09:33 Care Management Progress Note S/O: Nneka was lying in bed when CM met with her. She is awake, alert and easy to engage in conversation. Nneka requires further medical work up and close monitoring on Telemetry. Her case was discussed with Dr. Bridges from [facility] Neurology. [facility] Neurology is consulted. A: 61 year old female admitted to [facility] on 02/11/22 for Confusional State P: Anticipate, Nneka will discharge home when medically cleared by provider. She will follow up with her PCP, Neurology and plan of care as prescribed. She will be driven home by her son, Andrey, via private vehicle when ready. CM will continue to support Nneka and any planning needs.
--- NOTE | 2022-02-14 10:42 | DI.US_ITS ---
APPROVED REPORT EXAM: Comprehensive 2D, Doppler, and color-flow Echocardiogram Patient Location: In-Patient Room/Bed: [address] Machine Clothing Man: Carrie Weinstein RDCS (AE) Indications: CVA, Cardiomyopathy, AICD Other Information Study Quality: Adequate. Technically limited study due to body habitus. Conclusion Concentric left ventricular hypertrophy. Estimated ejection fraction is 50%. There is an apical wal l motion abnormality Right ventricle is dilated Both atria are moderately dilated Device lead noted in the right heart Structurally normal aortic valve without stenosis or regurgitation Mild mitral annular calcification. Mild to moderate mitral regurgitation Normal tricuspid valve with mild to moderate regurgitation. Estimated right ventricular systolic pre ssure is 47 mmHg Wall motion Left Ventricle The left ventricle is normal size. Left ventricular systolic function is mildly decreased. Mild nando ntric left ventricular hypertrophy. Regional wall motion abnormalities are noted. There is no ventric ular septal defect visualized. LVEF is 50%. Right Ventricle Right ventricle is dilated. Right ventricular systolic function is grossly normal. The RVSP is 47.1mm Hg. Device lead is present in the right ventricle. Atria Left atrium is moderately dilated. Right atrium moderately dilated. The interatrial septum is intact with no evidence for an atrial septal defect. Aortic Valve The aortic valve is normal in structure. Aortic valve is trileaflet. There is no aortic valvular sten osis. No aortic regurgitation is present. Mitral Valve There is mitral annular calcification. No evidence of mitral valve stenosis. Mild to moderate mitral regurgitation. Tricuspid Valve The tricuspid valve is normal in structure. There is no tricuspid valve stenosis. Mild to moderate tr icuspid regurgitation. Pulmonic Valve The pulmonary valve is normal in structure. There is no pulmonic valvular stenosis. There is no pulmo brooke valvular regurgitation. Great Vessels The aortic root is normal in size. The ascending aorta is normal in size. Aortic arch is normal in ca liber. The IVC collapses <50% with inspiration. Pericardium There is no pericardial effusion. 2D Dimensions IVSD d PLAX 1.19 cm F: 0.6-1.0 LV Vol A2C d MOD 63.2 mL LVPW d PLAX 1.14 cm F: 0.6 - 1.0 LV Vol A4C d MOD 55.2 mL LVID d PLAX 4.01 cm F: 3.8 - 5.2 LA vol/ BSA A4C s A-L 23.0 mL/m2 LVDs 3.00 cm F: 2.2 - 3.5 LA Area A4C s MOD 14.52 cm2 Ao Root d 2.68 cm F: 2.7 - 3.3 LV EF A4C MOD 50.5 % Ao Asc Diam d 2.77 cm F: 2.3 - 3.1 LV EF A2C MOD 50.3 % LV EF Teichholz 48.7 % LV EF Biplane MOD 50.9 % LVEF (Simmons's) 50.90 % F: 54 - 74 SV 31.53 mL LV Volume 50.06 mL F: 46 - 106 SV Index 19.43 mL/m2 LV Volume Index 30.90 mL/m2 F: 29 - 61 LV Vol Biplane MOD 61.9 mL FS 24.20 % LV Diastology MV E Vmax 0.63 (0.4-1.3 m/s) Aortic Valve LVOT Area 3.00 cm2 AoV Area Vmax 2.35 cm2 LVOT Vmax 0.62 m/s AoV Area/ BSA (Vmax) 1.45 cm2/m2 LVOT Mean Naif. 0.44 m/s JULIAN Mean Naif. 2.54 cm2 LVOT Peak Grad 1.5 mmHg JULIAN Mean Naif. Index 1.56 cm2/m2 LVOT Mean Grad 0.9 mmHg LVOT VTI 0.104 m LVOT Diam s 1.95 cm AoV Vmax 0.79 m/s Velocity Ratio 0.78 AoV Mean Naif. 0.52 m/s AoV Peak Grad 2.5 mmHg LVOT SV 31.27 mL AoV Mean Grad 1.3 mmHg AoV VTI 0.112 m AoV Area VTI 2.80 cm2 AoV Area/ BSA (VTI) 1.73 cm/m2 Mitral Valve MV DT 212 (160-240 msec) MV PHT 61 msec MV Area PHT 3.58 cm2 Pulmonary Valve PV Vmax 0.65 (0.5-1.5 m/s) RVOT Peak Gr. 1.25 mmHg PV Peak Grad 1.7 mmHg RVOT Mean Gr. 0.50 mmHg PV Mean Grad 1.0 mmHg RVOT VTI 0.093 m PV VTI 0.127 m RVOT Vmax 0.56 m/s Tricuspid Valve TR Peak Grad 39.0 mmHg TR Vmax 3.12 m/s RA Pressure 8.00 mmHg RVSP (TR) 47.1 mmHg
--- NOTE | 2022-02-14 13:08 | W.NEUROCONSU ---
Date of service: 02/14/22 Time of Service: 12:08 Assessment and Plan Assessment and plan (1) CVA (cerebral vascular accident): Status: Chronic (2) Receptive aphasia: Status: Acute (3) Atrial fibrillation: Status: Chronic (4) jail current use of anticoagulants with INR goal of 2.0-3.0: Status: Chronic Assessment and plan: Ms. Polanco is a 61 year-old LEFT-handed woman admitted with a right temporal-parietal ischemic stroke manifested by receptive aphasia. She has known atrial fibrillation/flutter on warfarin with INR 2.2 upon admission. Etiology of her stroke thought to be thrombotic vs thromboembolic - distal R MCA pruning? aortic arch? sigmoid sinus of the R ICA?. Work-up: -No further testing needed Medications: -aspirin 81mg daily for secondary stroke prevention -warfarin with goal INR 2-3 for secondary stroke prevention -atrovastatin 80mg daily for secondary stroke prevention - ok to reduce to 20mg daily at d/c for goal LDL <70 Other: -Allow permissive hypertension - BP has come done on its own -Physical therapy for leg weakness, gait training -Occupation therapy for activities of daily living -Speech therapy for speech She should not drive at this time. She should follow up in neurology clinic in 4-6 weeks. History of Present Illness History of Present Illness Chief Complaint: stroke Narrative: Handedness: LEFT. Ms. Polanco is a 61 year-old woman with cardiomyopathy, VF arrest in 2005 s/p ICD, atrial fibrillation on warfarin, and CKD. On 02/11/22, family became aware of altered speech/word salad by telephone such that she was brought to the ER. She had no weakness or sensory changes. At the time of evaluation in the ER, last known normal time was unknown and with INR 2.2, she was not a candidate for tPA. She was started on aspirin 81mg daily + atorvastatin 80mg daily. She has undergone the work-up as below with perhaps modest improvement in her aphasia. PT has evaluated and discharged her with no needs. ST not available until tomorrow. Work-up: -CTH (02/11/22): No acute findings. I reviewed these images personally and this is my personal interpretation. -CTA head/neck (02/11/22): pruning of R MCA branches otherwise unremarkable. I reviewed these images personally and this is my personal interpretation. -Labs (02/11/22): INC 2.2, Na 138, K 2.8, Cr 1.1, UDS/ETOH neg; A1c 6.3, LDL 104, B12 504 -CTH (02/13/22): new right temporal-parietal ischemic infarct. I reviewed these images personally and this is my personal interpretation. -TTE (02/14/22): concentric LVH with EF 50% and apical wall motion abnormalities. Bilateral atria moderately dilated. 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) Abnormal Pap smear of cervix (Acute) Allergic rhinitis (Chronic 01/28/13) Zyrtec plus prn Flonase Atrial fibrillation (Chronic 05/10/11) 06/12 pul vein isolation/ablation [facility]; repeat [facility] 08/18/1208/13 LAHSA EF 65% Chronic atrial flutter (Chronic 07/30/14) 06/12 pul vein isolation/ablation [facility]; repeat [facility] 08/18/1208/13 LASHA EF 65% Hot flashes (Chronic 07/22/13) RX Gabapentin jail current use of anticoagulants with INR goal of 2.0-3.0 (Chronic 07/11/12) Home monitoring Primary cardiomyopathy (Chronic 05/10/11) Hereditary; AICD; hx V Fib arrest; AVJ ablation (05/2013); successful' ICD; ECHO [facility] 12/2014 EF 58% diastolic CHF Dr Russo Cardiology [facility], Echocardiogram 07/26/18 [facility], 05/04/20 echo at [facility] 05/21/20 F/U [facility] [place] [facility], 04/06/21 Outpt Stress Test done Renal insufficiency (Chronic 07/16/15) 07/2015 US kidney NL Dysuria (Acute) Routine general medical examination at a health care facility (Acute) Medical History Afib Hx of cardiac arrest 2006 ICD (implantable cardioverter-defibrillator) in place Normal colonoscopy (~06/2019) Surgical History Hx of prior ablation treatment Recurrent major depression in partial remission (01/01/11) [facility] pt. denies this Recurrent major depression in partial remission (08/01/12) [facility] Family History Father , [place] Alcohol use disorder Heart disease Sister Afib Heart disease Uncle Afib Heart disease Social History Smoking/Tobacco Use Status: Former Tobacco Use Quit Date: 04/03/89 Tobacco: How many years used: 3 Quit status: quit date established Smoking risk assessment performed?: Yes Alcohol Intake: current Alcohol Intake frequency: holidays/special occasions only Drug use: Never Substance use type: does not use Adopted: No Caregiver/Support person: No Foster care: No Household members: none Housing: house Number of Children: 2 Education Level: high school Do you need help understanding health information?: Rarely 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 Pets and animals: Yes Pets and animals: dog(s) Sexually active: No Do you think of yourself as: straight/heterosexual Current gender identity: female What is your relationship status?: How often do you talk on the phone with friends or family?: three or more times per week How often do you get together with friends or relatives?: three or more times per week Do you belong to any clubs or organized social groups?: yes Panel score (0-1 are the most socially isolated patients): 2 What type of physical activity do you participate in: walking Duration: 15-30 minutes/day Frequency: 5-6 times per week Shima/Jainism: Amish Special shima needs: No Seatbelt use: always Helmet use: Yes Drive intox or ride w/intox 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 Do you feel safe at home: Yes Do you feel safe in your relationship?: Yes Additional Social history: not in current relationship Visit Medication and Allergies Active Medications Generic Name Dose Route Start Last Admin Trade Name Freq PRN Reason Stop Dose Admin Acetaminophen 325 - 650 mg 02/11/22 20:54 02/13/22 04:42 Acetaminophen 325 Mg Tab PO 650 mg Q4H PRN PRN Administration Albuterol Sulfate 2 puff 02/11/22 20:54 Albuterol Hfa 8 Gm 60 Puff Inh IH Q4H PRN PRN bronchospasm Aspirin 81 mg 02/12/22 08:30 02/14/22 07:46 Aspirin 81 Mg Chew PO 81 mg DAILY BIBI Administration Atorvastatin Calcium 80 mg 02/11/22 22:30 02/13/22 21:18 Atorvastatin 40 Mg Tab PO 80 mg QPM BIBI Administration Device 1 each 02/11/22 21:00 Inhaler, Assist Device MC DIRECTED BIBI Dimethicone/Zinc Oxide 0 gm 02/11/22 20:49 Ivan Protect Cream 142 Gm Tube TP PRN PRN Furosemide 80 mg 02/12/22 08:30 02/14/22 09:15 Furosemide 40 Mg Tab PO 80 mg DAILY BIBI Administration Furosemide 40 mg 02/12/22 16:00 02/13/22 15:55 Furosemide 40 Mg Tab PO Not Given DAILY@1600 BIBI Gabapentin 600 mg 02/11/22 22:00 02/13/22 21:21 Gabapentin 600 Mg Tab PO 600 mg HS BIBI Administration Sodium Chloride 500 mls @ 0 mls/hr 02/13/22 09:30 Saline 500ml Bag IV PRN PRN As Directed Sodium Chloride 50 mls @ 0 mls/hr 02/13/22 09:31 Saline 50ml Bag IV PRN PRN As Directed IV Miscellaneous Supplies 1 each 02/13/22 09:30 Iv Access IV DIRECTED BIBI Metoprolol Tartrate 12.5 mg 02/12/22 08:30 02/14/22 09:15 Metoprolol 12.5 Mg Tab PO 12.5 mg BID BIBI Administration Polyethylene Glycol 17 gm 02/11/22 20:54 Polyethylene Glycol 3350 17 Gm Packet PO DAILY PRN PRN Constipation Potassium Chloride 20 meq 02/11/22 22:30 02/14/22 07:46 Potassium Chloride 20 Meq Tabcr PO 20 meq BID BIBI Administration Sodium Chloride 0 ml 02/13/22 09:30 02/13/22 11:38 Normal Saline Flush 10 Ml Syr IVP 10 ml PRN PRN Administration Sodium Chloride 0 ml 02/13/22 20:00 02/14/22 07:46 Normal Saline Flush 10 Ml Syr IVP 10 ml BID BIBI Administration Warfarin Sodium 7.5 mg 02/11/22 22:30 02/13/22 21:20 Warfarin 2.5 Mg Tab PO 7.5 mg QPM BIBI Administration Allergies apple Allergy (Severe, Verified 02/11/22 18:48) disopyramide phosphate [From Norpace] Allergy (Severe, Verified 02/11/22 18:48) VT Penicillins Allergy (Intermediate, Verified 02/11/22 18:48) Skin Rash chlorpheniramine Allergy (Verified 02/11/22 18:48) peach Allergy (Verified 02/11/22 18:48) walnut Allergy (Verified 02/11/22 18:48) Exam Narrative Exam Narrative: Physical Exam: Gen: Patient of apparent stated age, NAD Head and face: no facial or cranial abnormalities Neck: Supple, no meningismus, no occipital tenderness CV: + S1, S2, RRR, no murmur Resp: CTA B/L Abd: soft, nontender, nondistended Ext: No edema. No clubbing or cyanosis. No bony deformity. Neuro Exam: Language: fluency intact; naming and repetition errors noted; comprehension impaired - able to follow simple one step commands most of the time, however, L-R confusion also noted Mental Status: AAOx3, current events and fund of knowledge intact considering aphasia; Speech: no dysarthria Cranial nerves: Funduscopy: not performed CN II: visual maya intact CN III, IV, : extraocular movements intact, no nystagmus, pupils symmetric and reactive to light CN V: face sensation intact to PP CN VII: no facial asymmetry noted CN VIII: hearing intact bilaterally CN IX, X: palate rises symmetrically CN XI: trapezius/SCM 5/5 bilaterally CN XII: protrudes tongue symmetrically Sensory: intact to PP in all extremities;other modalities not tested due to aphasia Motor: bulk and tone intact. Fine motor movements intact bilaterally. No pronator drift. Strength 5/5 throughout including the deltoids, biceps, triceps, wrist extensors, hip flexors, knee flexors, knee extensors, ankle flexors, and ankle extensors. Reflexes: 2+ at the biceps, triceps, brachioradialis, patella, and achilles tendons bilaterally; toes down going bilaterally; Coordination: FTN and HTS intact bilaterally Gait: not seen Results Last Vital Signs Temp 98.1 F 02/14/22 12:09 Pulse 68 02/14/22 12:09 Resp 18 02/14/22 12:09 BP 111/75 02/14/22 12:09 Pulse Ox 98 02/14/22 12:09 Labs Result diagrams: 02/13/22 05:56 02/13/22 05:56 Labs: Laboratory Results - last 24 hr 02/14/22 06:12 PT 16.9 H INR 1.7 H
[2022-02-14] MEDS: Furosemide 40 MG TAB PO (15:44)
[2022-02-14] MEDS: Acetaminophen 325 MG TAB PO (15:44)
--- NOTE | 2022-02-14 16:10 | W.PM.PROGNOT ---
Date of Service Date of service: 02/14/22 Time of Service: 16:10 Assessment and Plan Assessment and plan (1) CVA (cerebral vascular accident): Status: Chronic Assessment and plan: seen by neurology with following recommendations: Work-up: -No further testing needed Medications: -aspirin 81mg daily for secondary stroke prevention -warfarin with goal INR 2-3 for secondary stroke prevention -atrovastatin 80mg daily for secondary stroke prevention - ok to reduce to 20mg daily at d/c for goal LDL <70 Other: -Allow permissive hypertension - BP has come done on its own -Physical therapy for leg weakness, gait training -Occupation therapy for activities of daily living -Speech therapy for speech She should not drive at this time. She should follow up in neurology clinic in 4-6 weeks. (2) halfway current use of anticoagulants with INR goal of 2.0-3.0: Status: Chronic Assessment and plan: Cont coumadin and monitor INR. (3) Primary cardiomyopathy: Status: Chronic Assessment and plan: Previous cardiac arrest. Echocardiogram on 11/13/20 showed an EF of 60% with a small apical aneurysm. RV global systolic function was mildly reduced. Est pulmonary artery pressure of 49. No significant valvular heart disease. On lasix and metoprolol. (4) Renal insufficiency: Status: Chronic Assessment and plan: Stable. Creatinine 1.1; within her normal range it appears. (5) Hx of cardiac arrest: Assessment and plan: Has AICD. Has not c/o CP/palpitations. (6) Chronic atrial flutter: Status: Chronic Assessment and plan: Has pacemaker; V-paced. On coumadin. (7) Hypokalemia: Status: Acute Assessment and plan: Likely related to lasix usage. Repleted with IV and oral K. Monitor. discussed with Dr merino Subjective Subjective Patient reports: no new complaints, tolerating liquids well, tolerating a regular diet, voiding w/o difficulty and afebrile; denies shortness of breath Exam Narrative Exam Narrative: Patient appears her stated age. Pleasant. Const General: cooperative and no acute distress Nutritional Appearance: average body habitus Orientation: alert [facility] Head: normocephalic and atraumatic Ears: hearing grossly normal bilaterally Eyes General: appearance normal, both eyes and all related structures Sclera: sclerae normal Resp Effort & Inspection: normal respiratory effort Auscultation: clear to auscultation bilaterally Cardio Rate: regular rate Rhythm: regular rhythm GI Palpation: soft and nontender Skin General skin exam: no rashes or lesions noted Neuro General: no focal motor deficits Cranial Nerves: PERRL, no nystagmus and facial strength normal Cognition: normal cognition Speech: receptive aphasia (was pushing when repeatedly asked to pull her upper extremities. ) Gait: normal gait Motor: muscle tone normal throughout Extrem General: no pedal edema and no calf tenderness Psych Appearance: grossly normal Speech and Movement: speech clear Affect: normal affect Objective Last Vital Signs Temp 38.5 C H 02/14/22 15:44 Pulse 71 02/14/22 15:34 Resp 16 02/14/22 15:34 BP 117/79 02/14/22 15:34 Pulse Ox 97 02/14/22 15:34 Laboratory Results - last 24 hr 02/14/22 06:12 PT 16.9 H INR 1.7 H
[2022-02-14] MEDS: Enoxaparin 60 MG/0.6 ML SYR SC (17:40)
[2022-02-14 20:40] LABS: Source Nasal/Nares
[2022-02-14] MEDS: Gabapentin 600 MG TAB PO (20:40)
[2022-02-14] MEDS: Atorvastatin 40 MG TAB 80 MG PO (20:41)
[2022-02-14 20:45] LABS: Bilirubin Negative (Negative); Blood Moderate (Negative); Clarity Sl Cloudy (Clear); Glucose Negative (Negative); Ketones Negative (Negative); Leukocyte Esterase Small (Negative); Nitrite Negative (Negative)
[2022-02-14 20:51] LABS: Bacteria Many HPF (Negative); C & S Indicated? Yes; Casts Negative LPF (Negative); Crystals Negative HPF (Negative); Epithelial Cells Few HPF (Negative); Mucus Negative (Negative)
[2022-02-14 21:13] LABS: COVID-19 PCR Negative (Negative)
[2022-02-15] VITALS (13 sets, daily range): BP systolic 98–115; BP diastolic 63–75; PULSE 69–79; RESP 16–18; TEMP 36.7–38.4; O2SAT 95–98
--- NOTE | 2022-02-15 | DI.US_ITS ---
Exam(s) US UPPER EXTREMITY VENOUS LT EXAM: US UPPER EXTREMITY VENOUS LT CLINICAL HISTORY: thrombophlebitis TECHNIQUE: GRAYSCALE, COLOR, DOPPLER IMAGING OF THE VENOUS SYSTEM OF THE UPPER EXTREMITY-BILATERAL COMPARISON: FINDINGS: This is a positive study for intraluminal thrombosis in the lower cephalic just above the elbow level where there is 2.5 cm length of intraluminal clot. Other veins: Basilic vein: Patent. Normal color-flow and normal compression and augmentation properties. Brachial vein(s):Patent. Normal color flow. Normal compression and augmentation properties. Axillary vein: Patent. Normal color flow. Normal compression and augmentation properties. Visualized subclavian vein: Patent. No obvious intraluminal thrombus. IMPRESSION: 1. There is 2.5 cm length of intraluminal thrombus within the cephalic vein near the antecubital fos sa level. 2. Other veins of the left upper extremity are patent. DATA REPOSITORY:
[2022-02-15 07:01] LABS: Abs Immature Grans 0.03 10^3/uL (0.0-0.06); Absolute Eosinophil Count 0.27 10^3/uL (0.0-0.7); Absolute Lymphocyte Count 3.44 10^3/uL (1.2-3.4); Absolute Monocyte Count 1.03 10^3/uL (0.1-0.8); Absolute Neutrophil Count 4.67 10^3/uL (1.2-6.7); Eosinophils % 2.8; HCT 44.7 % (36.0-46.0); HGB 14.6 g/dL (11.2-15.7); Immature Grans % 0.3; Lymphocytes % 36.1; MCH 31.6 pg (27.0-33.0); MCHC 32.7 % (32.0-36.0); MCV 97 fL (80-95); MPV 10.1 fL (8.0-11.0); Monocytes % 10.8; Platelet Count 234 10^3/uL (130-400); RBC 4.62 10^6/uL (3.93-5.22); RDW-SD 50.1 fL; WBC 9.54 10^3/uL (4.4-10.8)
[2022-02-15 07:12] LABS: Prothrombin Time 19.4 sec (9.3-11.0)
[2022-02-15 07:15] LABS: Anion Gap 9.1 mmol/L (3-11); BUN 20 mg/dL (7-18); CO2 27.9 mmol/L (21.0-32.0); CREATININE 1.2 mg/dL (0.55-1.02); Calcium 8.9 mg/dL (8.5-10.1); Chloride 99 mmol/L (98-107); Estimated GFR 52.14 (mL/min/1.73m2); Glucose 88 mg/dL (74-106); Potassium 3.8 mmol/L (3.5-5.1); Sodium 136 mmol/L (136-145)
[2022-02-15] MEDS: Aspirin 81 MG CHEW PO (08:25)
[2022-02-15] MEDS: Furosemide 40 MG TAB 80 MG PO (08:26)
[2022-02-15] MEDS: Metoprolol 12.5 MG TAB PO ×2 (08:26→20:46)
[2022-02-15] MEDS: Normal Saline Flush 10 ML SYR IVP ×4 (08:26→20:46)
[2022-02-15] MEDS: Potassium Chloride 20 MEQ TABCR PO ×2 (08:27→20:41)
--- NOTE | 2022-02-15 08:30 | W.SPSTE ---
Date of service: 02/15/22 Time of Service: 08:30 Subjective Referred for Cognitive/Communication Evaluation by Dr. Allen in setting of aphasia s/p R temporal-parietal CVA. History of Present Illness Chief Complaint: stroke Handedness: LEFT. Ms. Polanco is a 61 year-old woman with cardiomyopathy, VF arrest in 2005 s/p ICD, atrial fibrillation on warfarin, and CKD. On 02/11/22, family became aware of altered speech/word salad by telephone such that she was brought to the ER.? She had no weakness or sensory changes. At the time of evaluation in the ER, last known normal time was unknown and with INR 2.2, she was not a candidate for tPA.? She was started on aspirin 81mg daily + atorvastatin 80mg daily.? She has undergone the work-up as below with perhaps modest improvement in her aphasia. PT has evaluated and discharged her with no needs. Work-up: -CTH (02/11/22): No acute findings. I reviewed these images personally and this is my personal interpretation.? -CTA head/neck (02/11/22): pruning of R MCA branches otherwise unremarkable. I reviewed these images personally and this is my personal interpretation.? -Labs (02/11/22): INC 2.2, Na 138, K 2.8, Cr 1.1, UDS/ETOH neg; A1c 6.3, LDL 104, B12 504 -CTH (02/13/22): new right temporal-parietal ischemic infarct.? I reviewed these images personally and this is my personal interpretation.? -TTE (02/14/22): concentric LVH with EF 50% and apical wall motion abnormalities. Bilateral atria moderately dilated. ? Subjective: Nneka was contacted at bedside this date for cognitive-communication evaluation and swallow screening. Son Andrey was present via telephone/speakerphone for this evaluation and also provided subjective report. Andrey requests to be called whenever providers are visiting his mother in the hospital. If he cannot be reached, he requests his sister Christine be called (patient provides consent as well) at [phone]. Andrey endorses comprehension difficulties, though wonders if disorientation was contributing initially vs aphasia. He also endorses word-finding errors, though feels her awareness has improved since yesterday and she makes more attempts at self-correction and is easier to understand. Nneka endorses difficulty with word-finding and getting the right words out. Denies difficulty with speech movements/slurred speech, or swallowing. She also reports that she just got hearing aids, but hasn't had a chance to try them out very much. Objective Objective Cranial nerve exam: Largely WFL, noting mild L naso-labial flattening, possible L palatal droop, but raises symmetrically (often a normal variation). Otherwise unremarkable. Speech: No evidence of dysarthria. No dysphonia. Apraxia testing not conducted due to time limitations this date. No overt apraxia s/sx noted in conversation. Verbal Expression: Utterances/responses are grammatical. Noting some mild perseverative paraphasias. Noting intermittent semantic (e.g., floor for couch) as well as phonemic (wings for rings, gland for glance) paraphasias. Occasional anomia with overt word-searching, usually resolved with extra time. Auditory Comprehension: Intermittent inappropriate responses indicating poor auditory comprehension (e.g., February when asked What Year is it? Orientation: See above; complicated by aphasia. Does appear with detailed recall of recent events and at least some insight into deficits, especially for expressive. [place] Swallow Screen: PASS - 3oz water without interruption/s/sx aspiration Western Aphasia Battery (Revised) Bedside Record Form Spontaneous Speech: Content: +9/10 Fluency: +9/10 Auditory Verbal Comprehension: Y/N Questions: +7/10 Sequential Commands: +3/10 Repetition: +5/10 note: increased difficulty with increased length of utterance Object Naming: +10/10 Reading: +5/10 (no points deducted for comprehension, points deducted for oral reading errors, phonemic. Writing: +5/10 (some errors due to poor comprehension of dictated material) Oral Apraxia: +10/10 (non-speech tasks) Bedside Language Score: 65 Symbol Cancellation Sub-test of Cognitive-Linguistic Quick Test (visual scanning) +12/12 Education provided: ? [x] Results of this examination ? [x] Role of GEOSCIENCES ASSOCIATE PROFESSOR in CVA workup, recovery ? [x] Impact of CVA on cognitive, communication, swallow function ? [x] Recommended Plan of Care ? [x] Initial recommendations for compensatory strategies. Assessment Patient presents with moderate receptive>epxressive aphasia, with strength in contextual/naturalistic conversation over arbitrary/testing tasks. Verbal expression characterized by phonemic more than semantic errors, patient is largely fluent with word-finding difficulties occasionally interrupting fluency but more often resulting in paraphasias/errors which patient is often aware of and attempting to self-correct. Patient with less awareness of comprehension errors. Patient will benefit from outpatient speech therapy referral for comprehensive aphasia evaluation and rehabilitation. No evidence of dysarthria. Do not suspect any apraxia involvement based on conversational speech, and especially given location of lesion, but formal speech testing not administered this date, should be completed outpatient to rule out. No s/sx dysphagia on screening this date. Recommendations: If patient does not qualify for SNF per OT/PT recommendations, she should return home with increased support from family given her comprehension deficits. Please place OUTPATIENT GEOSCIENCES ASSOCIATE PROFESSOR REFERRAL Providers and caregivers/family should provide instructions and information 1 STEP AT A TIME. When possible ask y/n questions. Use visual aids, and Written keyword writing to enhance comprehension. Maximize context clues and gestural communication to enhance comprehension. Whenever possible, include family members in provision of important results/instructions/information given patient's comprehension deficits. Plan GEOSCIENCES ASSOCIATE PROFESSOR to follow while on unit. Short Term Goals: Patient/family will verbalize understanding of education r/t nature of aphasia, impact of CVA on language, speech, cognitive function, results of evaluation, and recommended plan of care. Patient/caregivers will demonstrate effective use of multi-modal and compensatory communication approaches to enhance comprehension x1-2 sessions while inpatient. Further goals to follow pending length of hospitalization. Time spent: 50min [id number] Speech & Language Evaluation Coding
--- NOTE | 2022-02-15 09:16 | PDOC.CMPRO ---
- If Service Date Differs Date of service: 02/15/22 Time of Service: 09:16 Care Management Progress Note S/O: Nneka was sitting up in bed when CM met with her. She was open and friendly and easy to engage in conversation. Nneka informed CM that she hoped to be discharged today, however she had a fever last night that necessitated additional studies. This afternoon she had an ultrasound of her right arm and was found to have a large thrombophlebitis and antibiotics have been ordered. During the conversation with Nneka, several of her responses were not consistent with the conversation and it became clear that she has some degree of expressive and receptive aphasia. Her sister Lulu who was visiting at the time, took CM aside and explained that Nneka is not always making sense. She requested that any important discussions with her include her son Andrey or her daughter Christine. CM called Andrey later in the day and updated him on discharge planning considerations and answered some questions he had about FMLA, disability and insurance. A: 61 year old female admitted to [facility] on 02/11/22 for Confusion P: Anticipate, Nneka will discharge home when medically cleared by provider, possibly with new home health orders. She will follow up with her PCP, Neurology and plan of care as prescribed. She will be driven home by her son, Andrey, via private vehicle when ready. CM will continue to support Nneka and any planning needs.
[2022-02-15] MEDS: cefTRIAXone 2 GM/50 ML BAG IVPB (12:19)
[2022-02-15] MEDS: Cefpodoxime 200 MG TAB PO (12:40)
--- NOTE | 2022-02-15 14:13 | W.PM.PROGNOT ---
Date of Service Date of service: 02/15/22 Time of Service: 14:13 Assessment and Plan Assessment and plan (1) Thrombophlebitis of cephalic vein: Status: Acute Assessment and plan: The most likely source of fever. My concern is that the patient has an AICD in place which, if she were to become bacteremic, could be seeded. Will treat with empiric vancomycin/ceftriaxone; await blood culture results, monitor fever curve. May have to have blood cultures repeated. Trend procalcitonin/CRP. Warm compresses. On anticoagulation. (2) CVA (cerebral vascular accident): Status: Chronic Assessment and plan: with residual receptive and expressive aphasia. Continue warfarin with goal INR 2-3 for secondary stroke prevention -atrovastatin 80mg daily - ok to reduce to 20mg daily at discharge for goal LDL <70 -permissive hypertension -Was evaluated by PT/OT - will not need outpatient service. -Will need outpatient speech therapy. No driving on d/c. Follow up w/ neuro in 4-6 weeks. 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 INR 2.0 today - not requiring bridging. (4) Primary cardiomyopathy: Status: Chronic Assessment and plan: H/o cardiac arrest. Echocardiogram 11/13/20: EF of 60%, small apical aneurysm. RV global systolic function was mildly reduced. RVSP 49 mmHg. No significant valvular disease. Continue metoprolol, lasix. Euvolemic. (5) Renal insufficiency: Status: Chronic Assessment and plan: Stable. Recheck in am. (6) Hx of cardiac arrest: Assessment and plan: S/p AICD. V paced on tele. Continue cardiac monitoring. (7) Chronic atrial flutter: Status: Chronic Assessment and plan: Vpaced. Continue coumadin. (8) Hypokalemia: Status: Resolved Assessment and plan: Recheck in am (9) DVT prophylaxis: Status: Acute Assessment and plan: On coumadin (10) Discharge planning issues: Status: Acute Assessment and plan: disposition pending blood culture results, defervescence, etc. Full code Will need outpatient neurology and speech therapy on discharge. Subjective Subjective Interval history since last seen: Ms Polanco states she does not have a headache, feel dizzy, have chest pain, shortness of breath, numbness, tingling, weakness, or nausea. Tmax 38.5. Nursing found that, when L AC IV was taken out, the site was erythematous and a small amount of pus was expressed. The patient does have an AICD in place. Exam Narrative Exam Narrative: General: Pleasant middle-aged female who is A&Ox3, occasionally using incorrect words HEENT: EOMI, MMM Heart: RRR, no m/r/g Lungs: CTAB Abdomen: soft, nontender, nondistended Extremities: LUE AC fossa with erythema around former IV site with a center with purulent discharge at the center. Objective Last Vital Signs Temp 37.7 C H 02/15/22 10:59 Pulse 71 02/15/22 10:59 Resp 17 02/15/22 10:59 BP 114/75 02/15/22 10:59 Pulse Ox 97 02/15/22 10:59 Laboratory Results - last 24 hr 02/14/22 02/14/22 02/15/22 20:30 20:35 06:35 WBC RBC Hgb Hct MCV MCH MCHC RDW Plt Count MPV Immature Gran % Neutrophils % Lymphocytes % Monocytes % Eosinophils % Basophils % Nucleated RBC % Absolute Neutrophils Absolute Lymphocytes Absolute Monocytes Absolute Eosinophils Absolute Basophils PT INR Sodium 136 Potassium 3.8 Chloride 99 Carbon Dioxide 27.9 Anion Gap 9.1 BUN 20 H Creatinine 1.2 H Est GFR (CKD-EPI 2020) 52.14 Glucose 88 Calcium 8.9 C-Reactive Protein Urine Color Yellow Urine Clarity Sl Cloudy Urine pH 6.0 Ur Specific Century 1.020 Urine Protein Negative Urine Ketones Negative Urine Blood Moderate H Urine Nitrite Negative Urine Bilirubin Negative Urine Urobilinogen 1.0 H Ur Leukocyte Esterase Small H Urine RBC 5-10 H Urine WBC 10-20 H Ur Epithelial Cells Few Urine Crystals Negative Urine Bacteria Many Urine Casts Negative Urine Mucus Negative Ur Culture Indicated? Yes Urine Glucose Negative COVID-19 Source Nasal/Nares SARS-CoV-2 (PCR) Negative Add-On Test Request 02/15/22 02/15/22 02/15/22 06:35 06:35 06:35 WBC 9.54 RBC 4.62 Hgb 14.6 Hct 44.7 MCV 97 H MCH 31.6 MCHC 32.7 RDW 14.0 Plt Count 234 MPV 10.1 Immature Gran % 0.3 Neutrophils % 49.0 Lymphocytes % 36.1 Monocytes % 10.8 Eosinophils % 2.8 Basophils % 1.0 Nucleated RBC % 0.0 Absolute Neutrophils 4.67 Absolute Lymphocytes 3.44 H Absolute Monocytes 1.03 H Absolute Eosinophils 0.27 Absolute Basophils 0.10 PT 19.4 H INR 2.0 H Sodium Potassium Chloride Carbon Dioxide Anion Gap BUN Creatinine Est GFR (CKD-EPI 2020) Glucose Calcium C-Reactive Protein Urine Color Urine Clarity Urine pH Ur Specific Century Urine Protein Urine Ketones Urine Blood Urine Nitrite Urine Bilirubin Urine Urobilinogen Ur Leukocyte Esterase Urine RBC Urine WBC Ur Epithelial Cells Urine Crystals Urine Bacteria Urine Casts Urine Mucus Ur Culture Indicated? Urine Glucose COVID-19 Source SARS-CoV-2 (PCR) Add-On Test Request [facility] 02/15/22 06:35 WBC RBC Hgb Hct MCV MCH MCHC RDW Plt Count MPV Immature Gran % Neutrophils % Lymphocytes % Monocytes % Eosinophils % Basophils % Nucleated RBC % Absolute Neutrophils Absolute Lymphocytes Absolute Monocytes Absolute Eosinophils Absolute Basophils PT INR Sodium Potassium Chloride Carbon Dioxide Anion Gap BUN Creatinine Est GFR (CKD-EPI 2020) Glucose Calcium C-Reactive Protein 1.20 H Urine Color Urine Clarity Urine pH Ur Specific Century Urine Protein Urine Ketones Urine Blood Urine Nitrite Urine Bilirubin Urine Urobilinogen Ur Leukocyte Esterase Urine RBC Urine WBC Ur Epithelial Cells Urine Crystals Urine Bacteria Urine Casts Urine Mucus Ur Culture Indicated? Urine Glucose COVID-19 Source SARS-CoV-2 (PCR) Add-On Test Request Objective Narrative Objective Narrative: US LUE venous: 1.? There is 2.5 cm length of intraluminal thrombus within the cephalic vein near the antecubital fossa level. 2.? Other veins of the left upper extremity are patent.
[2022-02-15] MEDS: Acetaminophen 325 MG TAB PO ×2 (15:21→20:44)
[2022-02-15] MEDS: VANCOMYCIN/WATER (PEG) 1.25 GM/250 ML BAG IVPB (16:24)
[2022-02-15] MEDS: Furosemide 40 MG TAB PO (16:24)
[2022-02-15 16:59] LABS: Procalcitonin 0.1 ng/mL
[2022-02-15] MEDS: Gabapentin 600 MG TAB PO (20:43)
[2022-02-15] MEDS: Atorvastatin 40 MG TAB 80 MG PO (20:44)
[2022-02-15] MEDS: Warfarin 5 MG TAB PO (22:15)
[2022-02-16] VITALS (12 sets, daily range): BP systolic 100–112; BP diastolic 61–75; PULSE 69–88; RESP 16–18; TEMP 36.7–39.1; O2SAT 94–100
[2022-02-16] MEDS: VANCOMYCIN 750 MG in Normal Saline 250 ML 166.667 MG IVPB ×2 (02:33→14:53)
[2022-02-16] MEDS: Furosemide 40 MG TAB 80 MG PO (08:00)
[2022-02-16] MEDS: cefTRIAXone 2 GM/50 ML BAG IVPB (08:01)
[2022-02-16] MEDS: Normal Saline Flush 10 ML SYR IVP ×4 (08:01→20:14)
[2022-02-16] MEDS: Acetaminophen 325 MG TAB PO ×3 (08:01→23:41)
[2022-02-16] MEDS: Aspirin 81 MG CHEW PO (08:01)
[2022-02-16] MEDS: Metoprolol 12.5 MG TAB PO ×2 (08:01→19:47)
[2022-02-16 08:02] LABS: Abs Immature Grans 0.03 10^3/uL (0.0-0.06); Absolute Basophil Count 0.08 10^3/uL (0.0-0.2); Absolute Lymphocyte Count 1.25 10^3/uL (1.2-3.4); Absolute Monocyte Count 0.68 10^3/uL (0.1-0.8); Absolute Neutrophil Count 5.48 10^3/uL (1.2-6.7); Eosinophils % 2.6; HCT 43.5 % (36.0-46.0); HGB 14.4 g/dL (11.2-15.7); Immature Grans % 0.4; Lymphocytes % 16.2; MCH 31.4 pg (27.0-33.0); MCHC 33.1 % (32.0-36.0); MCV 95 fL (80-95); MPV 10.4 fL (8.0-11.0); Monocytes % 8.8; Platelet Count 242 10^3/uL (130-400); RBC 4.59 10^6/uL (3.93-5.22); RDW 14.2 % (11.7-14.6); RDW-SD 49.4 fL; WBC 7.72 10^3/uL (4.4-10.8)
[2022-02-16] MEDS: Potassium Chloride 20 MEQ TABCR PO ×2 (08:02→19:48)
[2022-02-16 08:16] LABS: INR 2.5 (0.9-1.1); Prothrombin Time 23.9 sec (9.3-11.0)
[2022-02-16 08:17] LABS: Anion Gap 10.2 mmol/L (3-11); BUN 18 mg/dL (7-18); C-Reactive Protein 1.64 mg/dL (0.0-0.3); CO2 25.8 mmol/L (21.0-32.0); CREATININE 1.1 mg/dL (0.55-1.02); Calcium 8.9 mg/dL (8.5-10.1); Chloride 99 mmol/L (98-107); Estimated GFR 57.88 (mL/min/1.73m2); Glucose 97 mg/dL (74-106); Magnesium 1.9 mg/dL (1.8-2.4); Potassium 3.6 mmol/L (3.5-5.1); Sodium 135 mmol/L (136-145)
--- NOTE | 2022-02-16 09:29 | PDOC.CMPRO ---
- If Service Date Differs Date of service: 02/16/22 Time of Service: 09:29 Care Management Progress Note S/O: Nneka was sitting up in bed when CM met with her. She appeared to be in good spirits and informed CM that she really wants to go home. Nneka has had a fever for the past 2 days that may be associated with the thrombophlebitis in her arm. She is receiving Vancomycin and Ceftriaxone and blood cultures have been drawn. Per provider, Nneka will need to remain hospitalized until blood cultures are known to be negative. CM contacted her son Andrey to provide an update. A: 61 year old female admitted to [facility] on 02/11/22 for Confusion P: Anticipate, Nneka will discharge home when medically cleared by provider, possibly with new home health orders. She will follow up with her PCP, Neurology and plan of care as prescribed. She will be driven home by her son, Andrey, via private vehicle when ready. CM will continue to support Nneka and any discharge planning needs.
[2022-02-16] MEDS: Furosemide 40 MG TAB PO (14:58)
--- NOTE | 2022-02-16 18:50 | W.PM.PROGNOT ---
Date of Service Date of service: 02/16/22 Time of Service: 18:50 Assessment and Plan Assessment and plan (1) Thrombophlebitis of cephalic vein: Status: Acute Assessment and plan: The most likely source of fever - she continues to have fever, upwards of high 38s She has an AICD in place which, concern for bacteremia, could be seeded. Continues to receive vancomycin/ceftriaxone; await blood culture results, monitor fever curve. Trend procalcitonin/CRP. Warm compresses. On anticoagulation. (2) CVA (cerebral vascular accident): Status: Chronic Assessment and plan: with residual receptive and expressive aphasia. She pushes when asked to pull. She said her son put her car in the garage for the winter because it is snowing. Continue warfarin with goal INR 2-3 for secondary stroke prevention -atrovastatin 80mg daily - ok to reduce to 20mg daily at discharge for goal LDL <70 -permissive hypertension -Was evaluated by PT/OT - will not need outpatient service. -Will need outpatient speech therapy. No driving on d/c. Follow up w/ neuro in 4-6 weeks. 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 INR 2.5 today - not requiring bridging. (4) Primary cardiomyopathy: Status: Chronic Assessment and plan: H/O cardiac arrest. - AICD w pacer Echocardiogram 11/13/20: EF of 60%, small apical aneurysm. RV global systolic function was mildly reduced. RVSP 49 mmHg. No significant valvular disease. Continue metoprolol, lasix. Euvolemic. (5) Renal insufficiency: Status: Chronic Assessment and plan: Stable. Recheck in am. (6) Hx of cardiac arrest: Assessment and plan: S/p AICD. V paced on tele. Continue cardiac monitoring. (7) Chronic atrial flutter: Status: Chronic Assessment and plan: Vpaced. Continue coumadin. (8) Hypokalemia: Status: Resolved Assessment and plan: 3.6 Recheck in am (9) DVT prophylaxis: Status: Acute Assessment and plan: On coumadin (10) Discharge planning issues: Status: Acute Assessment and plan: disposition pending blood culture results, defervescence, etc. Full code Will need outpatient neurology and speech therapy on discharge. discussed with Dr Allen Subjective Subjective Patient reports: no new complaints, tolerating a regular diet, voiding w/o difficulty and fever; denies diarrhea or vomiting Interval history since last seen: Continues to have fever, otherwise reports feeling better and having had a good meeting with the neurologist. She had her son unlock her phone so if she needs to call quickly she will not have to unlock it. Exam Narrative Exam Narrative: Patient appears her stated age. Pleasant. Const General: cooperative and no acute distress Nutritional Appearance: average body habitus Orientation: alert [facility] Head: normocephalic and atraumatic Ears: hearing grossly normal bilaterally Eyes General: appearance normal, both eyes and all related structures Sclera: sclerae normal Resp Effort & Inspection: normal respiratory effort Auscultation: clear to auscultation bilaterally Cardio Rate: regular rate Rhythm: regular rhythm GI Palpation: soft and nontender Skin General skin exam: no rashes or lesions noted Neuro General: no focal motor deficits Cranial Nerves: PERRL, no nystagmus and facial strength normal Cognition: normal cognition Gait: normal gait Motor: muscle tone normal throughout Extrem General: no pedal edema and no calf tenderness Psych Appearance: grossly normal Speech and Movement: speech clear Affect: normal affect Objective Last Vital Signs Temp 38.4 C H 02/16/22 15:58 Pulse 73 02/16/22 15:13 Resp 16 02/16/22 15:13 BP 109/73 02/16/22 15:13 Pulse Ox 99 02/16/22 15:13 Laboratory Results - last 24 hr 02/16/22 02/16/22 02/16/22 07:42 07:42 07:42 WBC 7.72 RBC 4.59 Hgb 14.4 Hct 43.5 MCV 95 MCH 31.4 MCHC 33.1 RDW 14.2 Plt Count 242 MPV 10.4 Immature Gran % 0.4 Neutrophils % 71.0 Lymphocytes % 16.2 Monocytes % 8.8 Eosinophils % 2.6 Basophils % 1.0 Nucleated RBC % 0.0 Absolute Neutrophils 5.48 Absolute Lymphocytes 1.25 Absolute Monocytes 0.68 Absolute Eosinophils 0.20 Absolute Basophils 0.08 PT 23.9 H INR 2.5 H Sodium 135 L Potassium 3.6 Chloride 99 Carbon Dioxide 25.8 Anion Gap 10.2 BUN 18 Creatinine 1.1 H Est GFR (CKD-EPI 2020) 57.88 Glucose 97 Calcium 8.9 Magnesium 1.9 C-Reactive Protein 1.64 H
[2022-02-16] MEDS: Atorvastatin 40 MG TAB 80 MG PO (19:48)
[2022-02-16] MEDS: Warfarin 5 MG TAB PO (20:14)
[2022-02-16] MEDS: Gabapentin 600 MG TAB PO (21:20)
[2022-02-17] VITALS (9 sets, daily range): BP systolic 94–110; BP diastolic 54–75; PULSE 69–90; RESP 14–18; TEMP 35.9–38; O2SAT 96–100
[2022-02-17 01:43] LABS: Vancomycin, Trough 18.4 ug/mL (10.0-20.0)
[2022-02-17] MEDS: VANCOMYCIN 750 MG in Normal Saline 250 ML 166.67 MG IVPB (02:44)
[2022-02-17 06:27] LABS: Abs Immature Grans 0.01 10^3/uL (0.0-0.06); Absolute Basophil Count 0.07 10^3/uL (0.0-0.2); Absolute Eosinophil Count 0.32 10^3/uL (0.0-0.7); Absolute Lymphocyte Count 2.38 10^3/uL (1.2-3.4); Absolute Monocyte Count 0.73 10^3/uL (0.1-0.8); Absolute Neutrophil Count 3.25 10^3/uL (1.2-6.7); Eosinophils % 4.7; HCT 41.5 % (36.0-46.0); Immature Grans % 0.1; Lymphocytes % 35.2; MCHC 33.7 % (32.0-36.0); MCV 95 fL (80-95); MPV 10.6 fL (8.0-11.0); Monocytes % 10.8; Neutrophils % 48.2; Platelet Count 206 10^3/uL (130-400); RBC 4.38 10^6/uL (3.93-5.22); RDW 14.4 % (11.7-14.6); RDW-SD 49.8 fL; WBC 6.76 10^3/uL (4.4-10.8)
[2022-02-17 06:45] LABS: INR 2.3 (0.9-1.1); Prothrombin Time 22.3 sec (9.3-11.0)
[2022-02-17 06:54] LABS: Anion Gap 7.5 mmol/L (3-11); BUN 15 mg/dL (7-18); C-Reactive Protein 2.37 mg/dL (0.0-0.3); CO2 27.5 mmol/L (21.0-32.0); Calcium 8.7 mg/dL (8.5-10.1); Chloride 102 mmol/L (98-107); Glucose 89 mg/dL (74-106); Magnesium 1.9 mg/dL (1.8-2.4); Potassium 3.7 mmol/L (3.5-5.1); Sodium 137 mmol/L (136-145)
[2022-02-17 08:07] LABS: Procalcitonin 0.4 ng/mL
--- NOTE | 2022-02-17 08:59 | CMPROGNOTE_ITS ---
- If Service Date Differs Date of service: 02/17/22 Time of Service: 08:59 Care Management Progress Note S/O: Nneka was sitting up in a chair when CM met with her. She was in good spirits and stated that she is feeling well. T-max was 38 today. Nneka again stated that she hopes to be able to discharge home soon. Repeat blood cultures drawn yesterday remain negative as are the ones from 02/14/22. Nneka seemed mentally clearer today and did not have the difficulties with word finding that has been evident in previous conversations with CM. A: 61 year old female admitted to [facility] on 02/11/22 for Confusion P: Anticipate, Nneka will discharge home when medically cleared by provider, possibly with new home health orders. She will follow up with her PCP, Neurology and plan of care as prescribed. She will be driven home by her son, Andrey, via private vehicle when ready. CM will continue to support Nneka and any discharge planning needs.
[2022-02-17] MEDS: Metoprolol 12.5 MG TAB PO ×2 (09:16→19:43)
[2022-02-17] MEDS: Furosemide 40 MG TAB 80 MG PO (09:16)
[2022-02-17] MEDS: Aspirin 81 MG CHEW PO (09:16)
[2022-02-17] MEDS: Potassium Chloride 20 MEQ TABCR PO ×2 (09:17→19:43)
[2022-02-17] MEDS: cefTRIAXone 2 GM/50 ML BAG IVPB (10:17)
[2022-02-17] MEDS: Normal Saline Flush 10 ML SYR IVP ×2 (10:17→19:44)
[2022-02-17] MEDS: VANCOMYCIN 750 MG in Normal Saline 250 ML 166.7 MG IVPB (14:43)
[2022-02-17] MEDS: Furosemide 40 MG TAB PO (15:43)
[2022-02-17] MEDS: Acetaminophen 325 MG TAB PO (15:43)
--- NOTE | 2022-02-17 17:55 | PGE_ITS ---
Date of Service Date of service: 02/17/22 Time of Service: 11:00 Assessment and Plan Assessment and plan (1) CVA (cerebral vascular accident): Status: Chronic Assessment and plan: She continues to have residual receptive and expressive aphasia. She does recognize she is saying the incorrect words and attempts to find the correct words, sometimes says 5 different words prior to getting it correct, quite frustrating - reassure Continue warfarin with goal INR 2-3 for secondary stroke prevention -atrovastatin 80mg daily - ok to reduce to 20mg daily at discharge for goal LDL <70 -permissive hypertension -Was evaluated by PT/OT - will not need outpatient service. -Will need outpatient speech therapy. No driving on d/c. Follow up w/ neuro in 4-6 weeks. (2) Hypokalemia: Status: Resolved Assessment and plan: 3.7 Recheck in am (3) Thrombophlebitis of cephalic vein: Status: Acute Assessment and plan: The most likely source of fever - she continues to have fever, upwards of high 38s She has an AICD in place which, concern for bacteremia, could be seeded. Continues to receive vancomycin/ceftriaxone; await blood culture results, monitor fever curve. Trend procalcitonin/CRP. Warm compresses. On anticoagulation. 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 INR 2.3 today - not requiring bridging. (5) Primary cardiomyopathy: Status: Chronic Assessment and plan: H/O cardiac arrest. - AICD w pacer Echocardiogram 11/13/20: EF of 60%, small apical aneurysm. RV global systolic function was mildly reduced. RVSP 49 mmHg. No significant valvular disease. Continue metoprolol, lasix. Euvolemic. (6) Renal insufficiency: Status: Chronic Assessment and plan: Stable. Recheck in am. (7) Hx of cardiac arrest: Assessment and plan: S/p AICD. V paced on tele. Continue cardiac monitoring. (8) Chronic atrial flutter: Status: Chronic Assessment and plan: Vpaced. Continue coumadin. (9) DVT prophylaxis: Status: Acute Assessment and plan: On coumadin (10) Discharge planning issues: Status: Acute Assessment and plan: disposition pending blood culture results, defervescence, etc. Full code Will need outpatient neurology and speech therapy, also detention, and OT on discharge. discussed with Dr Allen Subjective Subjective Patient reports: no new complaints, tolerating a regular diet, voiding w/o difficulty and fever; denies diarrhea or vomiting Interval history since last seen: Continues to have fever, otherwise reports feeling better, wants to go home, discussed once she has 24h of no fever and blood cultures continue to be negative she should be able to be discharged to home with HH Exam Narrative Exam Narrative: Patient appears her stated age. Pleasant. Const General: cooperative and no acute distress Nutritional Appearance: average body habitus Orientation: alert [facility] Head: normocephalic and atraumatic Ears: hearing grossly normal bilaterally Eyes General: appearance normal, both eyes and all related structures Sclera: sclerae normal Resp Effort & Inspection: normal respiratory effort Auscultation: clear to auscultation bilaterally Cardio Rate: regular rate Rhythm: regular rhythm GI Palpation: soft and nontender Skin General skin exam: no rashes or lesions noted Neuro General: no focal motor deficits Cranial Nerves: PERRL, no nystagmus and facial strength normal Cognition: normal cognition Gait: normal gait Motor: muscle tone normal throughout Extrem General: no pedal edema and no calf tenderness Psych Appearance: grossly normal Speech and Movement: speech clear Affect: normal affect Objective Last Vital Signs Temp 38 C H 02/17/22 15:38 Pulse 69 02/17/22 15:38 Resp 16 02/17/22 15:38 BP 103/69 02/17/22 15:38 Pulse Ox 100 02/17/22 15:38 Laboratory Results - last 24 hr 02/17/22 02/17/22 02/17/22 01:23 05:56 05:56 WBC RBC Hgb Hct MCV MCH MCHC RDW Plt Count MPV Immature Gran % Neutrophils % Lymphocytes % Monocytes % Eosinophils % Basophils % Nucleated RBC % Absolute Neutrophils Absolute Lymphocytes Absolute Monocytes Absolute Eosinophils Absolute Basophils PT 22.3 H INR 2.3 H Sodium 137 Potassium 3.7 Chloride 102 Carbon Dioxide 27.5 Anion Gap 7.5 BUN 15 Creatinine 1.0 Est GFR (CKD-EPI 2020) 64.90 Glucose 89 Calcium 8.7 Magnesium 1.9 C-Reactive Protein 2.37 H Procalcitonin Vancomycin Trough 18.4 02/17/22 02/17/22 02/17/22 05:56 05:56 13:00 WBC 6.76 RBC 4.38 Hgb 14.0 Hct 41.5 MCV 95 MCH 32.0 MCHC 33.7 RDW 14.4 Plt Count 206 MPV 10.6 Immature Gran % 0.1 Neutrophils % 48.2 Lymphocytes % 35.2 Monocytes % 10.8 Eosinophils % 4.7 Basophils % 1.0 Nucleated RBC % 0.0 Absolute Neutrophils 3.25 Absolute Lymphocytes 2.38 Absolute Monocytes 0.73 Absolute Eosinophils 0.32 Absolute Basophils 0.07 PT INR Sodium Potassium Chloride Carbon Dioxide Anion Gap BUN Creatinine Est GFR (CKD-EPI 2020) Glucose Calcium Magnesium C-Reactive Protein Procalcitonin 0.4 Vancomycin Trough Cancelled
[2022-02-17] MEDS: Atorvastatin 40 MG TAB 80 MG PO (19:48)
[2022-02-17] MEDS: Gabapentin 600 MG TAB PO (21:53)
[2022-02-18] VITALS (7 sets, daily range): BP systolic 95–107; BP diastolic 59–71; PULSE 70–99; RESP 16–20; TEMP 36.4–37.3; O2SAT 97–100
[2022-02-18] MEDS: VANCOMYCIN 750 MG in Normal Saline 250 ML 166.7 MG IVPB ×2 (02:12→14:12)
[2022-02-18] MEDS: Normal Saline Flush 10 ML SYR IVP ×3 (02:12→14:13)
[2022-02-18 06:57] LABS: Abs Immature Grans 0.02 10^3/uL (0.0-0.06); Absolute Basophil Count 0.08 10^3/uL (0.0-0.2); Absolute Eosinophil Count 0.35 10^3/uL (0.0-0.7); Absolute Lymphocyte Count 2.36 10^3/uL (1.2-3.4); Absolute Monocyte Count 1.34 10^3/uL (0.1-0.8); Absolute Neutrophil Count 3.59 10^3/uL (1.2-6.7); Eosinophils % 4.5; HCT 42.7 % (36.0-46.0); HGB 13.8 g/dL (11.2-15.7); Immature Grans % 0.3; Lymphocytes % 30.5; MCH 31.4 pg (27.0-33.0); MCHC 32.3 % (32.0-36.0); MCV 97 fL (80-95); Monocytes % 17.3; Neutrophils % 46.4; Platelet Count 195 10^3/uL (130-400); RBC 4.39 10^6/uL (3.93-5.22); RDW 14.3 % (11.7-14.6); RDW-SD 51.5 fL; WBC 7.74 10^3/uL (4.4-10.8)
[2022-02-18 07:18] LABS: INR 2.5 (0.9-1.1); Prothrombin Time 23.5 sec (9.3-11.0)
[2022-02-18 07:21] LABS: Anion Gap 6.4 mmol/L (3-11); BUN 15 mg/dL (7-18); C-Reactive Protein 2.19 mg/dL (0.0-0.3); CO2 28.6 mmol/L (21.0-32.0); Calcium 8.8 mg/dL (8.5-10.1); Chloride 101 mmol/L (98-107); Glucose 87 mg/dL (74-106); Magnesium 2.3 mg/dL (1.8-2.4); Sodium 136 mmol/L (136-145)
--- NOTE | 2022-02-18 08:17 | PDOC.CMPRO ---
- If Service Date Differs Date of service: 02/18/22 Time of Service: 08:17 Care Management Progress Note S/O: Nneka was sitting up in bed when CM met with her. She remains pleasant and engages easily in conversation. Nneka continues to verbalize a desire to be discharged. Fortunately she has remained afebrile for 24 hours so, per provider, she may be ready for discharge as soon as this weekend. CM met briefly with her son Andrey today and updated him on Nneka's condition and discharge plan. A: 61 year old female admitted to [facility] on 02/11/22 for Confusion P: Anticipate, Nneka will discharge home when medically cleared by provider, possibly with new home health orders. She will follow up with her PCP, Neurology and plan of care as prescribed. She will be driven home by her son, Andrey, via private vehicle when ready. CM will continue to support Nneka and any discharge planning needs.
[2022-02-18] MEDS: cefTRIAXone 2 GM/50 ML BAG IVPB (08:43)
[2022-02-18] MEDS: Aspirin 81 MG CHEW PO (08:44)
[2022-02-18] MEDS: Metoprolol 12.5 MG TAB PO (08:44)
[2022-02-18] MEDS: Potassium Chloride 20 MEQ TABCR PO (08:45)
[2022-02-18] MEDS: Furosemide 40 MG TAB 80 MG PO (08:45)
--- NOTE | 2022-02-18 15:11 | SPP_ITS ---
Date of service: 02/18/22 Time of Service: 11:00 Yaz Eraly was contacted at bedside this date for aphasia f/u. She was lying in bed initially but sat up, pleasant & agreeable to participate in today's session. She reports feeling well today, she does still notice that she needs extra time with word-finding and sometimes the words she is saying don't sound quite right. She prefers that people give her a little extra time rather than fill in the words for her. When asked, she has less awareness of difficulties with comprehension. Objective/Assessment/Plan Objective Treatment Techniques & Outcomes: 1. Patient/family will verbalize understanding of education r/t nature of aphasia, impact of CVA on language, speech, cognitive function, results of evaluation, and recommended plan of care. IN PROGRESS: Provided aphasia education to patient this date including expressive vs receptive, implications on communication function, impact of CVA. Handouts provided. Reviewed recommendation to attend outpatient [facility] clinic once discharged home. Will reinforce this information with family as able. 2. Patient/caregivers will demonstrate effective use of multi-modal and compensatory communication approaches to enhance comprehension x1-2 sessions while inpatient. IN PROGRESS: Provided rationale and demonstration of keyword writing this date with patient. She was agreeable to ask providers and family to use this strategy. Provided example and instructions at bedside for patient to show to visitors/providers. Patient also noted to message her sister during this session to ask her to bring a small white board to the hospital when next visiting. Language Comprehension Training: Patient chose picture from field of 3 given single word verbal stimulus from clinician. +8/10 accuracy Increased difficulty with longer (3+ syllable words). Even when correct, patient intermittently unable to repeat verbal stimulus accurately, but using process of elimination to arrive at correct response (e.g., I was looking for 'biography' but the only thing that's close here is 'binoculars' so I will go with that one. Patient/Caregiver/Staff Education: Provided ed to RN this date reiterating pt's level of comprehension impairment, recommendations provided to write keywords and important information down, establish topic, and include family members whenever possible. Assessment Patient presents with moderate receptive>epxressive aphasia. Verbal expression characterized by phonemic more than semantic errors, patient is largely fluent with word-finding difficulties occasionally interrupting fluency but more often resulting in paraphasias/errors which patient is often aware of and attempting to self-correct. Patient with low insight into comprehension errors. Patient will benefit from outpatient speech therapy referral for comprehensive aphasia evaluation and rehabilitation. If patient does not qualify for SNF per OT/PT recommendations, she should return home with?increased support from family given her comprehension deficits. Plan Plan: [facility] to follow while on unit. MD to place Outpatient [facility] referral orders upon discharge. Recommendations Recommendations: Providers and caregivers/family should provide instructions and information 1 STEP AT A TIME. When possible ask y/n questions.? Use visual aids, and Written keyword writing to enhance comprehension. Maximize context clues and gestural communication to enhance comprehension. Whenever possible, include family members in provision of important results/instructions/information given patient's comprehension deficits. Total Time Spent: 35 minutes [id number] Speech Therapy Coding
[2022-02-18] MEDS: Fosfomycin Tromethamine 3 GM PACKET PO (16:29)
[2022-02-18] MEDS: Furosemide 40 MG TAB PO (16:29)
--- NOTE | 2022-02-18 16:50 | W.PM.DS.N ---
Date of service: 02/18/22 Time of Service: 16:50 DS: Diagnosis Discharge Diagnosis (1) Thrombophlebitis of cephalic vein: Status: Acute (2) CVA (cerebral vascular accident): Status: Chronic (3) group home current use of anticoagulants with INR goal of 2.0-3.0: Status: Chronic (4) Primary cardiomyopathy: Status: Chronic (5) Renal insufficiency: Status: Chronic (6) Hx of cardiac arrest: (7) Chronic atrial flutter: Status: Chronic (8) Hypokalemia: Status: Resolved (9) DVT prophylaxis: Status: Acute (10) Discharge planning issues: Status: Acute Discharge Plan Disposition Patient Disposition: Home W/Home Health Services Condition: Improving Discharge Details Reason For Visit: [place] Admit Date/Time: 02/11/22 20:49 Admit Provider: Sebastian Nichole Attending Provider: Sebastian Nichole Primary Care Provider: Carlita Zimmerman [facility] Hospital Course: This is a 61 yo female with a PMH of atrial fibrillation, chronic atrial flutter on AC, cardiomyopathy, VFib arrest / AICD, renal insufficiency.? She was brought to the [facility] ED after family noted that she was making no sense when conversing with a family member on the phone.? This occurred 1/2 - 1 hour prior to arrival to the ED. In the ED her vital signs were unremarkable. Cardiac monitoring showed aflutter, V-paced. UA negative. She was noted to have expressive aphasia; for example when asked what the date was she gave her birthday.? No focal motor deficits noted.? CTA head/neck negative for acute findings. ED physician spoke with neurology at [facility] they suggested admission, aspirin daily, MRI and further neuro evaluation.? Not a tPA candidate d/t taking warfarin. She had a MRI and was seen by neurology and speech therapy. She developed a fever. Blood cultures were negative for 72 hours. She was treated for a UTI. She had no fever for 24 hours. She wanted to go home and will stay with her son Andrey for the night. he will have homehealth services as she is restricted completely from driving. alf, OT, and speech therapy. She reported feeling better. Eating well adn taking plenty of fluids in. She denied any UTI symptoms. Neurolog recommended she start aspirin daily, atorvastatin daily - 20 mg in lieu of 80 mg she received while hospitalized. She will continue furosemide, 40 mg twice a day, new Rx given. She will continue to take coumadin as she was taking prior to hospitalization. Her INR here was stable. Order for to draw labs with INR next week. She will follow up with neurology in 4-6 weeks. She was discharged to home with her son Andrey, stable, improved. Home Meds and New Rx's Prescriptions: New furosemide 40 mg Tablet 40 mg PO BID Qty: 60 0RF warfarin [Jantoven] 2.5 mg Tablet 7.5 mg PO [id number] Qty: 0 0RF potassium chloride 20 mEq Tablet,Er Particles/Crystals 20 meq PO BID Qty: 60 0RF warfarin [Jantoven] 5 mg Tablet 5 mg PO [id number] Qty: 0 0RF aspirin [Children's Aspirin] 81 mg Tablet,Chewable 81 mg PO DAILY Qty: 30 0RF atorvastatin 20 mg tablet 20 mg PO QHS Qty: 30 0RF Continued albuterol sulfate [ProAir HFA] 90 mcg/actuation HFA aerosol inhaler 2 puff Inhalation Q4H PRN PRN (Reason: bronchospasm) Qty: 1 0RF Rx Instructions: Trial for dry cough loratadine 10 mg tablet 10 mg PO DAILY Rx Instructions: for allergies warfarin 5 mg tablet 5 mg PO DAILY Qty: 7 0RF Protocol: Dose Management Condition: Monday Dose/Route: 5 mg Instruction: 1 x 5 mg tablet Condition: Monday Dose/Route: 7.5 mg Instruction: 1.5 x 5 mg tablets Condition: Monday Dose/Route: 5 mg Instruction: 1 x 5 mg tablet Condition: Monday Dose/Route: 5 mg Instruction: 1 x 5 mg tablet Condition: Dose/Route: 7.5 mg Instruction: 1.5 x 5 mg tablets Condition: Monday Dose/Route: 5 mg Instruction: 1 x 5 mg tablet Condition: Monday Dose/Route: 5 mg Instruction: 1 x 5 mg tablet Protocol Text: Adjustment Start Date: Monday02/07/22 INR Value: 2.0 INR Date: 02/07/22 Additional Instructions: per MAHESH, no change. continue same dosing recheck 1 wk. marques starr detailed instructions on well identified VM. NC Rx Instructions: or as directed to maintain INR between 2-3. furosemide 40 mg tablet See Rx Instructions PO DAILY Qty: 270 3RF Rx Instructions: 2 tabs QAM, 1 tab QPM per cardiology dated 11/13/20. gabapentin 600 mg tablet 600 mg PO HS Qty: 90 3RF Rx Instructions: dx: hot flashes metoprolol tartrate 25 mg tablet See Rx Instructions .ROUTE .COMPLEX Qty: 180 3RF Dose Instruction: TAKE 1 TABLET TWICE A DAY Rx Instructions: TAKE 1 TABLET TWICE A DAY trazodone 50 mg tablet 50 mg PO QHS PRN (Reason: sleep) Qty: 30 3RF Discontinued guaifenesin [Mucinex Fast-Max Chest-Congest] 100 mg/5 mL liquid 200 mg PO Q4H PRN (Reason: cough) Qty: 473 0RF warfarin 5 mg tablet See Rx Instructions .ROUTE .COMPLEX Qty: 135 3RF Protocol: Dose Management Condition: Monday Dose/Route: 5 mg Instruction: 1 x 5 mg tablet Condition: Monday Dose/Route: 7.5 mg Instruction: 1.5 x 5 mg tablets Condition: Monday Dose/Route: 5 mg Instruction: 1 x 5 mg tablet Condition: Monday Dose/Route: 5 mg Instruction: 1 x 5 mg tablet Condition: Dose/Route: 7.5 mg Instruction: 1.5 x 5 mg tablets Condition: Monday Dose/Route: 5 mg Instruction: 1 x 5 mg tablet Condition: Monday Dose/Route: 5 mg Instruction: 1 x 5 mg tablet Protocol Text: Adjustment Start Date: Monday02/07/22 INR Value: 2.0 INR Date: 02/07/22 Additional Instructions: per JV, no change. continue same dosing recheck 1 wk. marques wSmiley detailed instructions on well identified VM. NC Dose Instruction: TAKE ONE AND ONE-HALF TABLETS (7.5 MG) DAILY OR DIRECTED Rx Instructions: TAKE ONE AND ONE-HALF TABLETS (7.5 MG) DAILY OR DIRECTED Discharge Instructions Instructions: Atrial Flutter (DC), Aphasia (DC), Expressive Aphasia Exercises (DC), Receptive Aphasia Exercises (DC), Ischemic Stroke (DC), Self Care Measures After a Stroke (DC) Additional Instructions: -aspirin 81mg daily for secondary stroke prevention -warfarin with goal INR 2-3 for secondary stroke prevention -atrovastatin 20mg daily at d/c for goal LDL <70 for secondary stroke prevention -Physical therapy for leg weakness, gait training -Occupation therapy for activities of daily living -Speech therapy for speech She should not drive at this time. She should follow up in neurology clinic in 4-6 weeks. Labs to be drawn by home health after 02/23/2022 before 02/26/2022 Stand Alone Forms: Nursing Discharge Form Referrals: Gaviota Serrato MD [ [facility] STAFF PHYSICIAN] - (Follow up in 4-6 weeks. Please call Monday to make an appointment.) Carlita Zimmerman NP [Primary Care Provider] - (Follow up in 1-2 weeks. Please call Monday to make an appointment.) Activity:: NO driving until released Equipment/Supplies:: No Equipment Needed Diet:: Low Sodium Discharge Orders Discharge Orders: Discharge Order (Routine); Ordered 02/18/22 Ordered By: Lulu Williamson Other Ambulatory Orders: Complete Blood Count w/Diff (Routine) Location: None Selected Ordered By: Lulu Williamson Comprehensive Metabolic Panel (Routine) Location: None Selected Ordered By: Lulu Williamson Prothrombin Time (Routine) Location: None Selected Ordered By: Lulu Williamson Discharge Data Discharge Date/Time-TO BE ENTERED AT DEPARTURE: 02/18/22 17:44 DS: Summary Time Spent with Patient providing and/or coordinating discharge services: Greater than 30 minutes Status at Discharge Functional status at discharge: independent ambulation Overall status at discharge: patient is not back to baseline Mental Status: mental status grossly normal Speech and Movement: speech clear Mood: labile mood Affect: normal affect Exam Narrative Exam Narrative: Patient appears her stated age. Pleasant. Const General: cooperative and no acute distress Nutritional Appearance: average body habitus Orientation: alert [facility] Head: normocephalic and atraumatic Ears: hearing grossly normal bilaterally Eyes General: appearance normal, both eyes and all related structures Sclera: sclerae normal Resp Effort & Inspection: normal respiratory effort Auscultation: clear to auscultation bilaterally Cardio Rate: regular rate Rhythm: regular rhythm GI Palpation: soft and nontender Skin General skin exam: no rashes or lesions noted Neuro General: no focal motor deficits Cranial Nerves: PERRL, no nystagmus and facial strength normal Cognition: normal cognition Gait: normal gait Motor: muscle tone normal throughout Extrem General: no pedal edema and no calf tenderness Psych Appearance: grossly normal Mental Status: mental status grossly normal Speech and Movement: speech clear Mood: labile mood Affect: normal affect Other: aphasia improving, mostly she realizes she is using incorrect words and corrects herself. DS: Data Vitals/I&O Vitals and I&O: Vital Signs Temperature 37.3 C 02/18/22 15:37 Temperature Source Tympanic 02/18/22 15:37 Pulse 72 02/18/22 15:37 Pulse Rhythm Regular 02/18/22 07:30 Pulse 80 02/11/22 21:30 Respiratory Rate 16 02/18/22 15:37 Respiratory Effort Non-Labored 02/18/22 07:30 Respiratory Depth Normal 02/18/22 07:30 Respiratory Pattern Normal 02/18/22 07:30 Blood Pressure 95/63 L 02/18/22 15:37 Blood Pressure Mean 80 02/11/22 21:30 Blood Pressure Position Supine 02/11/22 18:45 Pulse Oximetry 97 02/18/22 15:37 Oxygen Delivery Method Room Air 02/18/22 15:37 Oxygen Flow Rate 0 02/18/22 15:37 Pain Level 0 02/18/22 15:37 Comment 02/17/22 20:00 Intake & Output 02/17/22 02/18/22 02/18/22 23:59 11:59 23:59 Intake Total 370 / 1340 310 / 560 250 / 560 Output Total 1200 / 1200 Balance 370 / 1340 -890 / -640 250 / -640 Intake: IV 250 / 550 310 / 560 250 / 560 Oral 120 / 790 Output: Urine 1200 / 1200 Other: Urine Color Light Tamiko Urine Appearance Clear Clear Comment patient was dry Voiding Methods Toilet Toilet Data Completed and Pending Labs on day of discharge: Labs from last 24 hours 02/18/22 02/18/22 02/18/22 06:13 06:13 06:13 WBC 7.74 RBC 4.39 Hgb 13.8 Hct 42.7 MCV 97 H MCH 31.4 MCHC 32.3 RDW 14.3 Plt Count 195 MPV 11.0 Immature Gran % 0.3 Neutrophils % 46.4 Lymphocytes % 30.5 Monocytes % 17.3 Eosinophils % 4.5 Basophils % 1.0 Nucleated RBC % 0.0 Absolute Neutrophils 3.59 Absolute Lymphocytes 2.36 Absolute Monocytes 1.34 H Absolute Eosinophils 0.35 Absolute Basophils 0.08 PT 23.5 H INR 2.5 H Sodium 136 Potassium 4.0 Chloride 101 Carbon Dioxide 28.6 Anion Gap 6.4 BUN 15 Creatinine 1.0 Est GFR (CKD-EPI 2020) 64.90 Glucose 87 Calcium 8.8 Magnesium 2.3 C-Reactive Protein 2.19 H Preliminary micro results at discharge 02/16/22 08:45 Blood Culture - Preliminary Blood NO GROWTH 48 HOURS 02/16/22 08:35 Blood Culture - Preliminary Blood NO GROWTH 48 HOURS 02/14/22 20:28 Blood Culture - Preliminary Blood NO GROWTH 72 HOURS 02/14/22 16:55 Blood Culture - Preliminary Blood NO GROWTH 72 HOURS PFSH All Active Problems (Updated 02/15/22 @ 14:32 by Lupis Allen MD) Discharge planning issues (Acute) DVT prophylaxis (Acute) Thrombophlebitis of cephalic vein (Acute) Receptive aphasia (Acute) CVA (cerebral vascular accident) (Chronic) Aphasia (Acute) COVID (Acute ~08/18/21) History of abnormal cervical Papanicolaou smear (Acute) History of HPV infection (Acute) CAP (community acquired pneumonia) (Acute) URI (upper respiratory infection) (Acute) Vaginal atrophy (Acute) 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) Abnormal Pap smear of cervix (Acute) Allergic rhinitis (Chronic 01/28/13) Zyrtec plus prn Flonase Atrial fibrillation (Chronic 05/10/11) 06/12 pul vein isolation/ablation [facility] repeat [facility] 08/18/1208/13 LASHA EF 65% Chronic atrial flutter (Chronic 07/30/14) 06/12 pul vein isolation/ablation [facility]; repeat [facility] 08/18/1208/13 LASHA EF 65% Hot flashes (Chronic 07/22/13) RX Gabapentin 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 current use of anticoagulants with INR goal of 2.0-3.0 (Chronic 07/11/12) Home monitoring Primary cardiomyopathy (Chronic 05/10/11) Hereditary; AICD; hx V Fib arrest; AVJ ablation (05/2013); successful' ICD; ECHO [facility] 12/2014 EF 58% diastolic CHF Dr Russo Cardiology [facility] Echocardiogram 07/26/18 [facility], 05/04/20 echo at [facility] 05/21/20 F/[place] [facility], 04/06/21 Outpt Stress Test done Renal insufficiency (Chronic 07/16/15) 07/2015 US kidney NL Dysuria (Acute) Routine general medical examination at a health care facility (Acute) Medical History Afib Hx of cardiac arrest 2005 ICD (implantable cardioverter-defibrillator) in place Normal colonoscopy (~06/2019) Surgical History Hx of prior ablation treatment Recurrent major depression in partial remission (01/01/11) [facility] pt. denies this Recurrent major depression in partial remission (08/01/12) [facility] Family History Father , [place] Alcohol use disorder Heart disease Sister Afib Heart disease Uncle Afib Heart disease Social History Smoking/Tobacco Use Status: Former Tobacco Use Quit Date: 04/03/89 Tobacco: How many years used: 3 Quit status: quit date established Smoking risk assessment performed?: Yes Alcohol Intake: current Alcohol Intake frequency: holidays/special occasions only Drug use: Never Substance use type: does not use Adopted: No Caregiver/Support person: No Foster care: No Household members: none Housing: house Number of Children: 2 Education Level: high school Do you need help understanding health information?: Rarely 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 Pets and animals: Yes Pets and animals: dog(s) Sexually active: No Do you think of yourself as: straight/heterosexual Current gender identity: female What is your relationship status?: How often do you talk on the phone with friends or family?: three or more times per week How often do you get together with friends or relatives?: three or more times per week Do you belong to any clubs or organized social groups?: yes Panel score (0-1 are the most socially isolated patients): 2 What type of physical activity do you participate in: walking Duration: 15-30 minutes/day Frequency: 5-6 times per week Shima/Zoroastrian: Synagogue Special shima needs: No Seatbelt use: always Helmet use: Yes Drive intox or ride w/intox log driver: No Do you feel safe at home: Yes Do you feel safe in your relationship?: Yes Additional Social history: not in current relationship
--- NOTE | 2022-02-18 17:24 | PDOC.HHF2F ---
Home Health Certification Home Health Certification: 1. Encounter Date and Reason I certify that Nneka Polanco was seen by Lulu Williamson NP on 02/18/22 and that I had a [id number] encounter with this patient that meets the physician face to face encounter requirements. 2. Clinical Findings Supporting Skilled Need and Homebound Status I certify that home health services are medically necessary, include either intermittent mcfp and/or physical/speech therapy, and that this patient is homebound in that absences from the home require considerable and taxing effort and are infrequent or of short duration, or are attributable to the need to receive medical care. [X] (a) Attached documentation from encounter provides clinical findings supporting skilled need and homebound status (including what assistance patient requires to leave the home). The encounter with the patient was in whole, or in part, for the following medical condition, which is the primary reason for home health care: CVA Senior Living: [place] patient's medical condition, instruct on medication regime and signs and symptoms to report. Education related to stroke, anticoagulation and safety. Pulmonary and cardiac assessment with emphasis on rhythm, work of breathing, edema, and observing blood pressure and heart rate in normal range OT: Assess and restore ability to perform ADLs. self care Speech Therapy: Expressive and receptive aphasia - Education r/t nature of aphasia, impact of CVA on language, speech, cognitive function, results of evaluation, and recommended plan of care. Homebound: Patient is unable to safely leave home without assistance and is restricted completely from driving until further notice. 3. Certification and Authentication I certify that I composed the above information based on my clinical judgement relating to this patient's medical condition and, if applicable, clinical findings communicated to me by the NPP or inpatient physician who performed the Home Health Referral. All further orders will be obtained through John Zimmerman APRN
== END 2022-02-18 17:44 | disposition home health service (06) | DRG 65 ==
LOC: ER 21:14 → MS 21:54
PROVIDERS: Family Medicine; Internal Medicine; Nurse Practitioner Acute Care; Nurse Practitioner Family; Admitting Provider Family Medicine; Emergency Provider Emergency Medicine; PCP Nurse Practitioner; Visit Provider Family Medicine
DX: I63.411 Cerebral infarction due to embolism of right middle cerebral artery (principal); I42.8 Other cardiomyopathies; I48.20 Chronic atrial fibrillation, unspecified; I48.92 Unspecified atrial flutter; I50.30 Unspecified diastolic (congestive) heart failure; I82.612 Acute embolism and thrombosis of superficial veins of left upper extremity; N39.0 Urinary tract infection, site not specified; R47.01 Aphasia; Z79.01 Long term (current) use of anticoagulants; N18.9 Chronic kidney disease, unspecified; Z95.810 Presence of automatic (implantable) cardiac defibrillator; E87.6 Hypokalemia; Z86.74 Personal history of sudden cardiac arrest; Z86.16 Personal history of COVID-19
CPT/HCPCS: 36410; 36415; 36416; 70496; 70498; 80048; 80053; 80061; 80307; 82962; 84145; 87040; 87077; 87635; 93005; 96365; 96366; 97161; 99285; 70450; 71046; 80202; 80320; 81003; 81015; 82607; 83036; 83735; 85025; 85610; 85730; 86140; 87070; 87086; 87186; 87205; 92507; 93010; 93306; 93971; 99223; 99232; 99233; 99239; J1650; J3480; J3490

== ENCOUNTER 2022-02-25 13:33 | Outpatient (REF) | payer OTHER, SELFPAY ==
[2022-02-25 14:36] LABS: Abs Immature Grans 0.03 10^3/uL (0.0-0.06); Absolute Basophil Count 0.09 10^3/uL (0.0-0.2); Absolute Eosinophil Count 0.24 10^3/uL (0.0-0.7); Absolute Lymphocyte Count 2.91 10^3/uL (1.2-3.4); Absolute Monocyte Count 1.05 10^3/uL (0.1-0.8); Absolute Neutrophil Count 4.28 10^3/uL (1.2-6.7); Eosinophils % 2.8; HGB 14.8 g/dL (11.2-15.7); Immature Grans % 0.3; Lymphocytes % 33.8; MCH 31.1 pg (27.0-33.0); MCHC 32.2 % (32.0-36.0); MCV 97 fL (80-95); MPV 10.1 fL (8.0-11.0); Monocytes % 12.2; Neutrophils % 49.9; Platelet Count 409 10^3/uL (130-400); RBC 4.76 10^6/uL (3.93-5.22); RDW 13.7 % (11.7-14.6)
[2022-02-25 14:47] LABS: ALT 44 U/L (14-59); AST 43 U/L (15-37); Alkaline Phosphatase 217 U/L (46-116); Anion Gap 5.9 mmol/L (3-11); BUN 23 mg/dL (7-18); Bilirubin, Total 1.1 mg/dL (0.2-1.0); CO2 30.1 mmol/L (21.0-32.0); CREATININE 0.9 mg/dL (0.55-1.02); Calcium 9.4 mg/dL (8.5-10.1); Chloride 99 mmol/L (98-107); Estimated GFR 73.64 (mL/min/1.73m2); Glucose 67 mg/dL (74-106); Potassium 4.5 mmol/L (3.5-5.1); Sodium 135 mmol/L (136-145); Total Protein 8.2 g/dL (6.4-8.2)
== END 2022-02-25 13:34 | disposition home or self-care (01) ==
LOC: LBN 13:33
PROVIDERS: PCP Nurse Practitioner; Visit Provider Nurse Practitioner Family
DX: I48.19 Other persistent atrial fibrillation (principal); I42.9 Cardiomyopathy, unspecified; N18.9 Chronic kidney disease, unspecified
CPT/HCPCS: 80053; 85025

== ENCOUNTER 2022-05-31 02:25 | Outpatient (CLI) | payer OTHER, SELFPAY ==
[2022-05-31 14:21] LABS: ALT 39 U/L (14-59); AST 37 U/L (15-37); Albumin 4.1 g/dL (3.4-5.0); Alkaline Phosphatase 209 U/L (46-116); Anion Gap 6.6 mmol/L (3-11); BUN 23 mg/dL (7-18); Bilirubin, Direct 0.6 mg/dL (0.0-0.2); CO2 31.4 mmol/L (21.0-32.0); CREATININE 1.3 mg/dL (0.55-1.02); Chloride 103 mmol/L (98-107); Estimated GFR 47.08 (mL/min/1.73m2); GGT 269 U/L (5-55); Glucose 102 mg/dL (74-106); Potassium 4.5 mmol/L (3.5-5.1); Sodium 141 mmol/L (136-145); Total Protein 8.2 g/dL (6.4-8.2)
[2022-05-31 14:28] LABS: NT-proBNP 3177 pg/mL (<300)
== END 2022-05-31 02:26 | disposition home or self-care (01) ==
PROVIDERS: PCP Nurse Practitioner; Visit Provider Internal Medicine Rheumatology
DX: R79.89 Other specified abnormal findings of blood chemistry (principal); R79.9 Abnormal finding of blood chemistry, unspecified; I50.32 Chronic diastolic (congestive) heart failure
CPT/HCPCS: 36415; 80053; 80076; 82977; 83880

== ENCOUNTER 2022-07-04 03:35 | Outpatient (CLI) | payer OTHER, SELFPAY ==
[2022-07-04 12:38] LABS: Hemoglobin A1C 6.4 % (<5.7)
[2022-07-04 12:59] LABS: ALT 44 U/L (14-59); AST 43 U/L (15-37); Albumin 4.2 g/dL (3.4-5.0); Alkaline Phosphatase 201 U/L (46-116); Bilirubin, Direct 0.5 mg/dL (0.0-0.2); Bilirubin, Total 1.6 mg/dL (0.2-1.0); GGT 308 U/L (5-55); TSH (W/Ref FT4) 3.52 uIU/mL (0.36-3.74); Total Protein 8.3 g/dL (6.4-8.2)
[2022-07-04 23:31] LABS: Parathyroid Hormone,Intact 300 pg/mL (19-88)
[2022-07-05 09:21] LABS: Hepatitis B Surface Ag Negative (Negative)
[2022-07-05 09:51] LABS: Hepatitis C Ab w Rflx HCV PCR Negative (Negative)
[2022-07-06 08:58] LABS: Lab Add On Test DONE
== END 2022-07-04 03:36 | disposition home or self-care (01) ==
PROVIDERS: PCP Nurse Practitioner; Visit Provider Nurse Practitioner
DX: R73.01 Impaired fasting glucose (principal); R79.89 Other specified abnormal findings of blood chemistry; R74.8 Abnormal levels of other serum enzymes; I48.91 Unspecified atrial fibrillation; Z11.59 Encounter for screening for other viral diseases; Z79.899 Other long term (current) drug therapy
CPT/HCPCS: 36415; 80076; 82306; 86803; 87340; 82977; 83036; 83970; 84443

== ENCOUNTER 2022-08-01 09:47 | Emergency (ER) | payer OTHER, SELFPAY ==
[2022-08-01 10:08] VITALS: BP 103/72; PULSE 74; RESP 20; TEMP 36.8; O2SAT 96
--- NOTE | 2022-08-01 10:30 | DI.US_ITS ---
Exam(s) US LOWER EXTREMITY VENOUS RT EXAM: US LOWER EXTREMITY VENOUS RT CLINICAL HISTORY: right calf pain TECHNIQUE: Right lower extremity venous ultrasound performed using grayscale, color-flow, and spectr al Doppler analysis. COMPARISON: No exams were available for comparison FINDINGS: The right common femoral, femoral and popliteal veins demonstrate normal compressibility, augmentatio n, and color Doppler. There is a linear area within the femoral vein which may be sequelae from prio r thrombus or injury. The posterior tibial veins are patent. The saphenofemoral junction is unremar kable. There is no evidence of a Jay cyst. The soft tissues are unremarkable. IMPRESSION: 1. No evidence of a right lower extremity DVT. 2. Findings were discussed with Susan Jamison on the date of the examination. DATA REPOSITORY:
--- NOTE | 2022-08-01 10:35 | W.ED.GENAD ---
Discharge Plan Disposition Patient Disposition: Home Condition: Good Discharge Details Clinical Impression: Acute pain of right knee Primary Care Provider: Carlita Zimmerman ED Provider: Susan Jamison Home Meds and New Rx's Prescriptions: Continued atorvastatin 20 mg tablet 20 mg PO QHS Qty: 90 3RF aspirin [Children's Aspirin] 81 mg tablet,chewable 81 mg PO DAILY Qty: 90 3RF potassium chloride 20 mEq tablet,ER particles/crystals 20 meq PO BID Qty: 180 3RF gabapentin 600 mg tablet 600 mg PO HS Qty: 90 3RF Rx Instructions: dx: hot flashes albuterol sulfate [ProAir HFA] 90 mcg/actuation HFA aerosol inhaler 2 puff Inhalation Q4H PRN PRN (Reason: bronchospasm) Qty: 1 0RF Rx Instructions: Trial for dry cough loratadine 10 mg tablet 10 mg PO DAILY Rx Instructions: for allergies metoprolol tartrate 25 mg tablet See Rx Instructions .ROUTE .COMPLEX Qty: 180 3RF Dose Instruction: TAKE 1 TABLET TWICE A DAY Rx Instructions: TAKE 1 TABLET TWICE A DAY trazodone 50 mg tablet 50 mg PO QHS PRN (Reason: sleep) Qty: 30 3RF Patient Comments: pt states not taking furosemide 40 mg tablet 40 mg PO BID Qty: 180 3RF furosemide [Lasix] 40 mg tablet 80 mg PO QAM Patient Comments: 05/23/22 Cardiology visit Rx Instructions: and 40mg qpm, but may increase to 80mg bid if needed cholecalciferol (vitamin D3) 1,250 mcg (50,000 unit) capsule 1,250 mcg PO QWEEK Qty: 12 3RF Patient Comments: pt states not taking famotidine 40 mg tablet 40 mg PO DAILY Qty: 90 3RF apixaban 5 mg tablet 5 mg PO BID Discharge Instructions Instructions: Knee Pain (ED) Additional Instructions: Your ultrasound is reassuring here today. No evidence of a blood clot. Likely muscular. Please encourage rest, ice, elevation. Tylenol as needed for discomfort. Please follow-up with primary care in the next week for reevaluation. If you develop any new or worsening symptoms please seek care urgently once again. Referrals: Carlita Zimmerman, [employer] [Primary Care Provider] - Discharge Data Discharge Date/Time-TO BE ENTERED AT DEPARTURE: 08/01/22 13:00 Medical Decision Making Patient is a pleasant 62-year-old female presenting today with chief complaint of right calf pain. She does have a history atrial fibrillation and is chronically anticoagulated with recent transition from warfarin onto Eliquis on . Woke up with calf pain on Monday and is concerned for potential DVT. During the transition time, she checked her INR last on 07/22/2022 at which time it was 1.8. She denies SOB or CP. No missed doses of new medication On exam, patient appears nontoxic. She is 2+ distal pulses. Sensation is intact. No knee swelling, erythema or warmth. Ligamentously intact. Point tender over the posterior aspect of her knee. No palable cord. No appreciable LE edema. Ultrasound Was evaluated by radiologist who advised no evidence of acute DVT. Discussed these findings with the patient. Likely MSK, advised could be a Jay's cyst. Encouraged rest, ice, elevation. Tylenol as needed for discomfort. Advise close follow-up with primary care. Return precautions discussed. All of her questions and concerns were addressed and she is in agreement this plan. HPI General Date/Time Provider Initiated Documentation: 08/01/22 10:34. Limitations to Documentation: no limitations. Information obtained by: patient and RN notes reviewed. History of Present Illness 62 year old F presents to the emergency department with the chief complaint of right knee pain, described as moderate, Quality is described as aching, and is localized to the right and lower extremity. Patient reports no radiation. Patient started experiencing this day(s) and it has been constant. Immobilization improves symptom(s), Movement worsens symptoms . Patient notes no other symptoms.. Patient did receive the following treatments prior to arrival, none Related Data Home Medications Medication Instructions Recorded Confirmed loratadine 10 mg tablet 10 mg PO DAILY 07/12/19 08/01/22 albuterol sulfate 90 mcg/actuation 2 puff inhalation Q4H PRN PRN 04/16/20 08/01/22 aerosol inhaler (ProAir HFA) bronchospasm ##1 metoprolol tartrate 25 mg tablet See Rx Instructions .Route 08/11/21 08/01/22 .COMPLEX #180 tabs trazodone 50 mg tablet 50 mg PO QHS PRN sleep #30 tabs 09/13/21 05/10/22 aspirin 81 mg chewable tablet 81 mg PO DAILY #90 tabs 02/23/22 08/01/22 (Children's Aspirin) atorvastatin 20 mg tablet 20 mg PO QHS #90 tabs 02/23/22 08/01/22 gabapentin 600 mg tablet 600 mg PO HS #90 tabs 02/23/22 08/01/22 potassium chloride 20 mEq 20 meq PO BID #180 tabs 02/23/22 08/01/22 tablet,extended release(part/cryst) furosemide 40 mg tablet 40 mg PO BID #180 tabs 02/25/22 08/01/22 furosemide 40 mg tablet (Lasix) 80 mg PO QAM 05/30/22 08/01/22 cholecalciferol (vitamin D3) 1,250 1,250 mcg PO QWEEK #12 caps 07/05/22 mcg (50,000 unit) capsule famotidine 40 mg tablet 40 mg PO DAILY #90 tabs 07/05/22 08/01/22 apixaban 5 mg tablet 5 mg PO BID 07/25/22 08/01/22 Previous Rx's Medication Instructions Recorded albuterol sulfate 90 mcg/actuation 2 puff inhalation Q4H PRN PRN 04/16/20 aerosol inhaler (ProAir HFA) bronchospasm ##1 metoprolol tartrate 25 mg tablet See Rx Instructions .Route 08/11/21 .COMPLEX #180 tabs trazodone 50 mg tablet 50 mg PO QHS PRN sleep #30 tabs 09/13/21 aspirin 81 mg chewable tablet 81 mg PO DAILY #90 tabs 02/23/22 (Children's Aspirin) atorvastatin 20 mg tablet 20 mg PO QHS #90 tabs 02/23/22 gabapentin 600 mg tablet 600 mg PO HS #90 tabs 02/23/22 potassium chloride 20 mEq 20 meq PO BID #180 tabs 02/23/22 tablet,extended release(part/cryst) furosemide 40 mg tablet 40 mg PO BID #180 tabs 02/25/22 cholecalciferol (vitamin D3) 1,250 1,250 mcg PO QWEEK #12 caps 07/05/22 mcg (50,000 unit) capsule famotidine 40 mg tablet 40 mg PO DAILY #90 tabs 07/05/22 Allergies Allergy/AdvReac Type Severity Reaction Status Date / Time apple Allergy Severe Verified 05/10/22 14:57 disopyramide phosphate Allergy Severe VT Verified 05/10/22 14:57 [From [facility]] Penicillins Allergy Intermediate Skin Rash Verified 05/10/22 14:57 chlorpheniramine Allergy Verified 05/10/22 14:57 peach Allergy Verified 05/10/22 14:57 walnut Allergy Verified 05/10/22 14:57 General Stated Complaint: Orthopedic AIDA: 4 Review of Systems Constitutional Constitutional: Reports as per HPI, Denies chills, Denies fever(s), Denies headache(s) and Denies weakness ENT Ears, Nose, Mouth, and Throat: Denies headache(s) Cardiovascular Cardiovascular: Reports as per HPI Respiratory Respiratory: Reports as per HPI and Denies cough Musculoskeletal Musculoskeletal: Reports as per HPI and Denies tingling Integumentary/Breasts Skin/Breast: Reports as per HPI, Denies rash and Denies wounds Neurologic Neurologic: Reports as per HPI, Denies headache(s), Denies tingling, Denies paresthesias and Denies weakness PFS All Active Problems (Updated 08/01/22 @ 12:44 by RADHAMES Kim) Acute pain of right knee (Acute) Chronic heart failure with preserved ejection fraction (Acute) 05/23/22 Cardiology, Dr Palomo Receptive aphasia (Acute) CVA (cerebral vascular accident) (Chronic) Aphasia (Acute) COVID (Acute ~08/18/21) History of abnormal cervical Papanicolaou smear (Acute) History of HPV infection (Acute) CAP (community acquired pneumonia) (Acute) URI (upper respiratory infection) (Acute) Vaginal atrophy (Acute) 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) Abnormal Pap smear of cervix (Acute) Allergic rhinitis (Chronic 01/28/13) Zyrtec plus prn Flonase Atrial fibrillation (Chronic 05/10/11) 06/12 pul vein isolation/ablation [facility] repeat [facility] 08/18/1208/13 [facility] EF 65% Chronic atrial flutter (Chronic 07/30/14) 06/12 pul vein isolation/ablation [facility]; repeat [facility] 08/18/1208/13 [facility] EF 65% Hot flashes (Chronic 07/22/13) RX Gabapentin [facility] current use of anticoagulants with INR goal of 2.0-3.0 (Chronic 07/11/12) Home monitoring Primary cardiomyopathy (Chronic 05/10/11) Hereditary; AICD; hx V Fib arrest; AVJ ablation (05/2013); successful' ICD; ECHO [facility] 12/2014 EF 58% diastolic CHF Dr Russo Cardiology [facility], Echocardiogram 07/26/18 [facility], 05/04/20 echo at [facility] 05/21/20 F/U [facility] Cardiolodgy, 04/06/21 Outpt Stress Test done Dysuria (Acute) Routine general medical examination at a health care facility (Acute) Medical History Afib Hx of cardiac arrest 2006 ICD (implantable cardioverter-defibrillator) in place Normal colonoscopy (~06/2019) Surgical History Hx of prior ablation treatment Recurrent major depression in partial remission (01/01/11) [facility] pt. denies this Recurrent major depression in partial remission (08/01/12) [facility] Family History Father , [place] Alcohol use disorder Heart disease Sister Afib Heart disease Uncle Afib Heart disease Social History Smoking/Tobacco Use Status: Former Tobacco Use Quit Date: 04/03/89 Tobacco: How many years used: 3 Quit status: quit date established Smoking risk assessment performed?: Yes Alcohol Intake: current Alcohol Intake frequency: holidays/special occasions only Drug use: Never Substance use type: does not use Adopted: No Caregiver/Support person: No Foster care: No Household members: none Housing: house Number of Children: 2 Education Level: high school Do you need help understanding health information?: Rarely 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 Pets and animals: Yes Pets and animals: dog(s) Sexually active: No Do you think of yourself as: straight/heterosexual Current gender identity: female What is your relationship status?: How often do you talk on the phone with friends or family?: three or more times per week How often do you get together with friends or relatives?: three or more times per week Do you belong to any clubs or organized social groups?: yes Panel score (0-1 are the most socially isolated patients): 2 What type of physical activity do you participate in: walking Duration: 15-30 minutes/day Frequency: 5-6 times per week Shima/Rastafari: Yazidi Special shima needs: No Seatbelt use: always Helmet use: Yes Drive intox or ride w/intox food service driver: No Do you feel safe at home: Yes Do you feel safe in your relationship?: Yes Additional Social history: not in current relationship Exam Const General: cooperative, healthy appearing, comfortable, no acute distress, well developed and well groomed Nutritional Appearance: average body habitus and well nourished Orientation: alert and awake Resp Effort & Inspection: normal respiratory effort, able to speak in complete sentences and no respiratory distress Cardio Rate: regular rate Rhythm: regular rhythm Skin General skin exam: no rashes or lesions noted Lesions: no lesions Rashes: no rashes Trauma: no lacerations or abrasions Neuro General: patient alert and patient awake Cognition: normal cognition Speech: speech normal Gait: normal gait Motor: muscle tone normal throughout Sensory Exam: no sensory deficits noted Psych Appearance: grossly normal and well kempt Mental Status: mental status grossly normal Speech and Movement: speech and movement normal Course Vital Signs Vital signs: Vital Signs Temperature 36.8 C 08/01/22 10:08 Pulse 74 08/01/22 10:08 Respiratory Rate 20 08/01/22 10:08 Blood Pressure 103/72 08/01/22 10:08 Pulse Oximetry 96 08/01/22 10:08 Temperature 36.8 C 08/01/22 10:08 Temperature Source Temporal Artery Scan 08/01/22 10:08 Pulse 74 08/01/22 10:08 Respiratory Rate 20 08/01/22 10:08 Blood Pressure 103/72 08/01/22 10:08 Blood Pressure Position Sitting 08/01/22 10:08 Pulse Oximetry 96 08/01/22 10:08 Oxygen Delivery Method Room Air 08/01/22 10:08 Oxygen Flow Rate 0 08/01/22 10:08
[2022-08-01 12:21] LABS: INR 1.3 (0.9-1.1); PTT Activated 29.6 sec (21.5-31.9); Prothrombin Time 12.9 sec (9.3-11.0)
[2022-08-01 12:57] VITALS: BP 95/65; PULSE 78; RESP 16; TEMP 36.2; O2SAT 958
== END 2022-08-01 13:00 | disposition home or self-care (01) ==
PROVIDERS: Emergency Provider Physician Assistant; PCP Nurse Practitioner
DX: M25.561 Pain in right knee (principal); Z79.899 Other long term (current) drug therapy
CPT/HCPCS: 36415; 99284; 85610; 85730; 93971; 99283

== ENCOUNTER 2022-08-31 04:33 | Outpatient (CLI) | payer OTHER, SELFPAY ==
[2022-08-31 07:59] LABS: ALT 41 U/L (14-59); AST 34 U/L (15-37); Alkaline Phosphatase 222 U/L (46-116); Bilirubin, Direct 0.5 mg/dL (0.0-0.2); Bilirubin, Total 1.5 mg/dL (0.2-1.0); GGT 277 U/L (5-55); Total Protein 8.2 g/dL (6.4-8.2)
[2022-08-31 11:28] LABS: Vitamin D 25 Total 62.5 ng/mL (30-100)
[2022-08-31 18:28] LABS: Parathyroid Hormone,Intact 135 pg/mL (19-88)
== END 2022-08-31 04:34 | disposition home or self-care (01) ==
LOC: LBO 04:34
PROVIDERS: PCP Nurse Practitioner; Visit Provider Nurse Practitioner
DX: R74.8 Abnormal levels of other serum enzymes (principal); E34.8 Other specified endocrine disorders; E55.9 Vitamin D deficiency, unspecified; R79.89 Other specified abnormal findings of blood chemistry
CPT/HCPCS: 36415; 80076; 82306; 82977; 83970; 84075

== ENCOUNTER 2022-10-27 02:20 | Outpatient (CLI) | payer BC, SELFPAY ==
--- NOTE | 2022-10-27 12:28 | DI.MAMMO_ITS ---
Exam(s) MAMMO SCREENING EXAM: MAMMO SCREENING CLINICAL HISTORY: screening,Z12.39. TECHNIQUE: Bilateral full field digital CC and MLO mammographic images were obtained with 3D tomosyn thesis and utilizing computer aided detection (CAD). COMPARISON: Prior mammograms were reviewed. FINDINGS: There has been no significant change in the appearance and distribution of the fibroglandular tissue. No CAD designations. Right-sided pacemaker again noted There are no new spiculated masses nor malignant appearing microcalcification groups. Small benign-appearing nodule in the left breast is unchanged from 202 There is no significant architectural distortion nor skin thickening-retraction. IMPRESSION: Stable benign-appearing findings. No radiographic evidence of malignancy. BI-RADS Category 2 - Benign Findings Breast Density - Category B - Scattered areas of fibroglandular density Breast density Category C or D implies that the patient has dense breast tissue. Dense breast tissue can make it harder to find cancer on a mammogram. Dense breast tissue is also associated with an incr eased risk of breast cancer. This information about the result of the mammogram report was provided to the patient to raise their awareness. Use this report when you speak with the patient about their risks for breast cancer, which includes their family history. At that time, you may recommend additional screening tests (Ultrasoun d or MRI) as these tests may add significant information. A negative radiographic report should not delay biopsy if a dominant or clinically suspicious mass is present. Up to ten percent of cancers are not identified on mammography. A negative report may reinforce clinical impression. Adenosis and dense breasts may obscure an underlying neoplasm. False positive reports average 6 to 10%. Patient will receive a letter notifying them of these results.
== END 2022-10-27 02:40 ==
PROVIDERS: PCP Nurse Practitioner; Visit Provider Nurse Practitioner
DX: Z12.31 Encounter for screening mammogram for malignant neoplasm of breast (principal)
CPT/HCPCS: 77063; 77067

== ENCOUNTER 2022-11-02 09:49 | Outpatient (CLI) | payer BC, OTHER, SELFPAY ==
[2022-11-02 13:22] LABS: Abs Immature Grans 0.02 10^3/uL (0.0-0.06); Absolute Basophil Count 0.11 10^3/uL (0.0-0.2); Absolute Eosinophil Count 0.26 10^3/uL (0.0-0.7); Absolute Lymphocyte Count 3.48 10^3/uL (1.2-3.4); Absolute Monocyte Count 1.01 10^3/uL (0.1-0.8); Absolute Neutrophil Count 4.37 10^3/uL (1.2-6.7); Basophils % 1.2; Eosinophils % 2.8; HGB 15.3 g/dL (11.2-15.7); Immature Grans % 0.2; Lymphocytes % 37.6; MCH 30.7 pg (27.0-33.0); MCHC 32.6 % (32.0-36.0); MCV 94 fL (80-95); MPV 10.2 fL (8.0-11.0); Monocytes % 10.9; Neutrophils % 47.3; Platelet Count 328 10^3/uL (130-400); RBC 4.99 10^6/uL (3.93-5.22); RDW 14.2 % (11.7-14.6); RDW-SD 49.6 fL; WBC 9.25 10^3/uL (4.4-10.8)
[2022-11-02 13:32] LABS: INR 1.2 (0.9-1.1); Prothrombin Time 12.1 sec (9.3-11.0)
[2022-11-02 14:28] LABS: ALT 31 U/L (14-59); AST 34 U/L (15-37); Albumin 4.3 g/dL (3.4-5.0); Alkaline Phosphatase 216 U/L (46-116); Anion Gap 9.5 mmol/L (3-11); BUN 20 mg/dL (7-18); Bilirubin, Total 1.8 mg/dL (0.2-1.0); CO2 32.5 mmol/L (21.0-32.0); CREATININE 1.3 mg/dL (0.55-1.02); Calcium 9.7 mg/dL (8.5-10.1); Chloride 95 mmol/L (98-107); Estimated GFR 47.08 (mL/min/1.73m2); Glucose 163 mg/dL (74-106); Potassium 3.7 mmol/L (3.5-5.1); Sodium 137 mmol/L (136-145); Total Protein 8.3 g/dL (6.4-8.2)
== END 2022-11-02 09:50 | disposition home or self-care (01) ==
LOC: LBO 09:49
PROVIDERS: PCP Nurse Practitioner; Visit Provider Nurse Practitioner Family
DX: I50.32 Chronic diastolic (congestive) heart failure (principal); R60.9 Edema, unspecified; K74.00 Hepatic fibrosis, unspecified
CPT/HCPCS: 36415; 80053; 85025; 85610

== ENCOUNTER 2022-11-10 02:38 | Outpatient (CLI) | payer BC, OTHER, SELFPAY ==
[2022-11-10 16:41] LABS: Anion Gap 11.6 mmol/L (3-11); BUN 21 mg/dL (7-18); CO2 32.4 mmol/L (21.0-32.0); CREATININE 1.3 mg/dL (0.55-1.02); Calcium 9.8 mg/dL (8.5-10.1); Chloride 95 mmol/L (98-107); Estimated GFR 47.08 (mL/min/1.73m2); Glucose 205 mg/dL (74-106); Sodium 139 mmol/L (136-145)
== END 2022-11-10 02:39 | disposition home or self-care (01) ==
LOC: LBO 02:39
PROVIDERS: Internal Medicine; PCP Nurse Practitioner; Visit Provider Nurse Practitioner
DX: I50.32 Chronic diastolic (congestive) heart failure (principal); R60.0 Localized edema
CPT/HCPCS: 36415; 80048

== ENCOUNTER 2022-11-17 05:26 | Outpatient (CLI) | payer BC, SELFPAY ==
[2022-11-17 12:36] LABS: BUN 23 mg/dL (7-18); CREATININE 1.3 mg/dL (0.55-1.02); Calcium 9.8 mg/dL (8.5-10.1); Chloride 100 mmol/L (98-107); Estimated GFR 47.08 (mL/min/1.73m2); Glucose 99 mg/dL (74-106); Potassium 3.9 mmol/L (3.5-5.1); Sodium 140 mmol/L (136-145)
== END 2022-11-17 05:27 | disposition home or self-care (01) ==
PROVIDERS: PCP Nurse Practitioner; Visit Provider Internal Medicine
DX: I50.32 Chronic diastolic (congestive) heart failure (principal); R60.0 Localized edema
CPT/HCPCS: 36415; 80048

== ENCOUNTER 2022-11-24 04:11 | Outpatient (CLI) | payer BC, SELFPAY ==
[2022-11-24 14:50] LABS: Anion Gap 8.1 mmol/L (3-11); BUN 18 mg/dL (7-18); CO2 30.9 mmol/L (21.0-32.0); CREATININE 1.3 mg/dL (0.55-1.02); Calcium 9.6 mg/dL (8.5-10.1); Chloride 96 mmol/L (98-107); Estimated GFR 47.08 (mL/min/1.73m2); Glucose 95 mg/dL (74-106); Potassium 3.8 mmol/L (3.5-5.1); Sodium 135 mmol/L (136-145)
== END 2022-11-24 04:12 | disposition home or self-care (01) ==
LOC: LBO 04:11
PROVIDERS: Internal Medicine; PCP Nurse Practitioner; Visit Provider Nurse Practitioner
DX: I50.32 Chronic diastolic (congestive) heart failure (principal); R60.0 Localized edema
CPT/HCPCS: 36415; 80048

== ENCOUNTER 2022-11-25 02:25 | Outpatient (CLI) | payer BC, SELFPAY ==
[2022-11-25] MEDS: Albuterol HFA 18 GM 200 PUFF INH IH (09:20)
[2022-11-25] MEDS: Inhaler, Assist Device 1 EACH MC (09:20)
--- NOTE | 2022-11-25 12:49 | W.PFT ---
Date of service: 11/25/22 Time of Service: 08:04 Pulmonary Function Test Result Indications: Heart transplant evaluation Interpretation Spirometry: No airflow limitations. There is restrictive spirometry. No significant bronchodilator response. Lung Volumes: Normal lung volumes Diffusion Capacity: Normal diffusion Airway Pressure: Normal airways resistance Impression Normal pulmonary function testing Note: When compared to 08/21/09, FEV1 and FVC have decreased, diffusion is stable. Clinical Correlation therefore is recommended.
== END 2022-11-25 02:26 | disposition home or self-care (01) ==
LOC: RT 02:25
PROVIDERS: PCP Nurse Practitioner; Visit Provider Internal Medicine
DX: I50.32 Chronic diastolic (congestive) heart failure (principal)
CPT/HCPCS: 94060; 94726; 94729

== ENCOUNTER 2022-12-01 02:21 | Outpatient (CLI) | payer BC, SELFPAY ==
[2022-12-01 12:58] LABS: Anion Gap 6.2 mmol/L (3-11); BUN 21 mg/dL (7-18); CO2 33.8 mmol/L (21.0-32.0); CREATININE 1.2 mg/dL (0.55-1.02); Calcium 9.7 mg/dL (8.5-10.1); Chloride 98 mmol/L (98-107); Estimated GFR 51.82 (mL/min/1.73m2); Glucose 96 mg/dL (74-106); Sodium 138 mmol/L (136-145)
== END 2022-12-01 02:22 | disposition home or self-care (01) ==
PROVIDERS: PCP Nurse Practitioner; Visit Provider Internal Medicine
DX: I50.32 Chronic diastolic (congestive) heart failure (principal); R60.0 Localized edema
CPT/HCPCS: 36415; 80048

== ENCOUNTER 2022-12-01 11:29 | Outpatient (REF) | payer BC, SELFPAY ==
--- NOTE | 2022-12-01 11:30 | PAPFT_PTH ---
PATIENT: Nneka Polanco LOC: [facility] U#:[id number] AGE/SX: 62/F ROOM: RE12/01/[address]: Genie Sánchez DO : 1960 BED: DIS: 12/01/2022 SPEC #: [id number] RECD: 12/01/22 12:56 STATUS: TESS REQ #: [id number] GUERO: 12/01/22 11:[address]: Genie Sánchez DEPT: [facility] Cytology RECD BY: Jessie Whitaker ENTERED: 12/01/22 12:58 SP TYPE: PAPFT OT DR: Carlita Zimmerman APRN Tissues: 1 - CX/ENDOCX FOR PAP SMEARS Procedures: PAP THIN PREP/UVM Screening HPV DNA PROBE Comments: [id number]
== END 2022-12-01 11:30 | disposition home or self-care (01) ==
LOC: LBN 11:29
PROVIDERS: PCP Nurse Practitioner; Visit Provider Obstetrics & Gynecology
DX: Z12.4 Encounter for screening for malignant neoplasm of cervix (principal); R87.610 Atypical squamous cells of undetermined significance on cytologic smear of cervix (ASC-US); Z11.51 Encounter for screening for human papillomavirus (HPV)
CPT/HCPCS: 88142; 87624

== ENCOUNTER 2022-12-08 04:13 | Outpatient (CLI) | payer BC, SELFPAY ==
[2022-12-08 13:56] LABS: Anion Gap 6.6 mmol/L (3-11); BUN 24 mg/dL (7-18); CO2 33.4 mmol/L (21.0-32.0); CREATININE 1.4 mg/dL (0.55-1.02); Calcium 9.4 mg/dL (8.5-10.1); Chloride 98 mmol/L (98-107); Estimated GFR 43.07 (mL/min/1.73m2); Glucose 103 mg/dL (74-106); Potassium 3.7 mmol/L (3.5-5.1); Sodium 138 mmol/L (136-145)
== END 2022-12-08 04:14 | disposition home or self-care (01) ==
PROVIDERS: PCP Nurse Practitioner; Visit Provider Nurse Practitioner Pediatrics
DX: I50.32 Chronic diastolic (congestive) heart failure (principal); R60.0 Localized edema
CPT/HCPCS: 36415; 80048

== ENCOUNTER 2022-12-15 02:16 | Outpatient (CLI) | payer BC, SELFPAY ==
[2022-12-15 14:13] LABS: Anion Gap 6.4 mmol/L (3-11); BUN 22 mg/dL (7-18); CO2 32.6 mmol/L (21.0-32.0); CREATININE 1.1 mg/dL (0.55-1.02); Calcium 9.4 mg/dL (8.5-10.1); Chloride 99 mmol/L (98-107); Estimated GFR 57.52 (mL/min/1.73m2); Glucose 97 mg/dL (74-106); Potassium 3.6 mmol/L (3.5-5.1); Sodium 138 mmol/L (136-145)
== END 2022-12-15 02:17 | disposition home or self-care (01) ==
PROVIDERS: Nurse Practitioner Pediatrics; PCP Nurse Practitioner; Visit Provider Internal Medicine
DX: I50.32 Chronic diastolic (congestive) heart failure (principal); R60.9 Edema, unspecified
CPT/HCPCS: 36415; 80048

== ENCOUNTER 2023-01-11 02:14 | Outpatient (CLI) | payer BC, SELFPAY ==
[2023-01-11 13:04] LABS: CREATININE 1.3 mg/dL (0.55-1.02); Estimated GFR 47.08 (mL/min/1.73m2)
== END 2023-01-11 02:15 | disposition home or self-care (01) ==
PROVIDERS: PCP Nurse Practitioner; Visit Provider Physician Assistant
DX: I50.32 Chronic diastolic (congestive) heart failure (principal)
CPT/HCPCS: 36415; 82565

== ENCOUNTER 2023-02-07 13:33 | Outpatient (REF) | payer BC, SELFPAY ==
--- NOTE | 2023-02-07 12:50 | ENDO_PTH ---
PATIENT: Nneka Polanco LOC: [facility] U#:[id number] AGE/SX: 62/F ROOM: RE02/07/[address]: Genie Sánchez DO : 1960 BED: DIS: 02/07/2023 SPEC #: [id number] RECD: 02/07/23 17:09 STATUS: TESS RE #: [id number] GUERO: 02/07/23 12:[address]: Genie Sánchez DEPT: Surgical Specimen RECD BY: Jessie Whitaker ENTERED: 02/07/23 17:10 SP TYPE: Endo OTHR DR: Carlita Zimmerman APRN Tissues: 1 - ENDOCERVICAL BX/CURRETTE Procedures: GROSS AND MICRO LEVEL 4 Comments: [id number]
== END 2023-02-07 13:34 | disposition home or self-care (01) ==
LOC: LBN 13:33
PROVIDERS: PCP Nurse Practitioner; Visit Provider Obstetrics & Gynecology
DX: C53.0 Malignant neoplasm of endocervix (principal)
CPT/HCPCS: 88305

== ENCOUNTER 2023-03-01 02:59 | Outpatient (RCR) | payer BC, SELFPAY ==
[2023-03-01] MEDS: IRON SUCROSE COMPLEX 300 MG in Normal Saline 250 ML 176.667 MG IVPB (07:49)
[2023-03-01] MEDS: Normal Saline Flush 10 ML SYR IVP (07:49)
== END 2023-03-02 23:59 | disposition home or self-care (01) ==
LOC: INF 02:59
PROVIDERS: PCP Nurse Practitioner; Visit Provider Nurse Practitioner Acute Care
DX: E61.1 Iron deficiency
CPT/HCPCS: 96365; 96366; J1756

== ENCOUNTER 2023-03-14 02:58 | Outpatient (RCR) | payer BC, SELFPAY ==
[2023-03-08] MEDS: Normal Saline Flush 10 ML SYR IVP (07:51)
[2023-03-08] MEDS: IRON SUCROSE COMPLEX 300 MG in Normal Saline 250 ML 176.667 MG IVPB (07:51)
[2023-03-14] MEDS: IRON SUCROSE COMPLEX 300 MG in Normal Saline 250 ML 176.667 MG IVPB (07:52)
[2023-03-14] MEDS: Normal Saline Flush 10 ML SYR IVP (07:52)
== END 2023-04-02 23:59 | disposition home or self-care (01) ==
LOC: INF 02:58
PROVIDERS: PCP Nurse Practitioner; Visit Provider Nurse Practitioner Acute Care
DX: I42.1 Obstructive hypertrophic cardiomyopathy; D50.9 Iron deficiency anemia, unspecified
CPT/HCPCS: 96365; 96366; J1756

== ENCOUNTER 2023-03-29 01:26 | Outpatient (CLI) | payer BC, SELFPAY ==
[2023-03-29 12:53] LABS: ALT 32 U/L (14-59); AST 30 U/L (15-37); Alkaline Phosphatase 251 U/L (46-116); Anion Gap 6.4 mmol/L (3-11); BUN 28 mg/dL (7-18); Bilirubin, Direct 0.5 mg/dL (0.0-0.2); Bilirubin, Total 1.2 mg/dL (0.2-1.0); CO2 34.6 mmol/L (21.0-32.0); CREATININE 1.4 mg/dL (0.55-1.02); Calcium 10.1 mg/dL (8.5-10.1); Chloride 97 mmol/L (98-107); Glucose 163 mg/dL (74-106); Magnesium 2.8 mg/dL (1.8-2.4); NT-proBNP 3649 pg/mL (<300); Potassium 3.8 mmol/L (3.5-5.1); Sodium 138 mmol/L (136-145); Total Protein 8.9 g/dL (6.4-8.2)
== END 2023-03-29 01:27 | disposition home or self-care (01) ==
PROVIDERS: Nurse Practitioner; PCP Nurse Practitioner; Visit Provider Internal Medicine
DX: I50.32 Chronic diastolic (congestive) heart failure (principal); R60.0 Localized edema; I27.21 Secondary pulmonary arterial hypertension; I48.91 Unspecified atrial fibrillation; N18.30 Chronic kidney disease, stage 3 unspecified; Z79.01 Long term (current) use of anticoagulants
CPT/HCPCS: 36415; 80048; 80076; 83735; 83880

== ENCOUNTER 2023-09-18 13:40 | Outpatient (CLI) | payer BC, SELFPAY ==
[2023-09-18 13:47] LABS: Kit/Specimen SENT
== END 2023-09-18 13:41 | disposition home or self-care (01) ==
LOC: LBO 13:40
PROVIDERS: PCP Nurse Practitioner
DX: I42.9 Cardiomyopathy, unspecified (principal)
CPT/HCPCS: 36415

== ENCOUNTER 2023-10-04 14:34 | Outpatient (CLI) | payer BC, SELFPAY ==
[2023-10-04 14:18] LABS: Abs Immature Grans 0.02 10^3/uL (0.0-0.06); Absolute Basophil Count 0.09 10^3/uL (0.0-0.2); Absolute Eosinophil Count 0.38 10^3/uL (0.0-0.7); Absolute Lymphocyte Count 3.39 10^3/uL (1.2-3.4); Absolute Monocyte Count 0.95 10^3/uL (0.1-0.8); Absolute Neutrophil Count 4.07 10^3/uL (1.2-6.7); Eosinophils % 4.3 %; HCT 46.9 % (36.0-46.0); HGB 15.6 g/dL (11.2-15.7); Immature Grans % 0.2 %; Lymphocytes % 38.1 %; MCH 30.7 pg (27.0-33.0); MCHC 33.3 % (32.0-36.0); MCV 92 fL (80-95); MPV 9.8 fL (8.0-11.0); Monocytes % 10.7 %; Neutrophils % 45.7 %; Platelet Count 299 10^3/uL (130-400); RBC 5.08 10^6/uL (3.93-5.22); RDW 14.2 % (11.7-14.6); RDW-SD 47.3 fL
[2023-10-04 14:23] LABS: INR 2.5 (0.9-1.1); Prothrombin Time 23.3 sec (9.1-11.1)
[2023-10-04 15:08] LABS: ALT 39 U/L (14-59); AST 45 U/L (15-37); Albumin 4.2 g/dL (3.4-5.0); Alkaline Phosphatase 269 U/L (46-116); Anion Gap 7.7 mmol/L (3-11); BUN 24 mg/dL (7-18); Bilirubin, Total 1.36 mg/dL (0.2-1.0); CO2 33.3 mmol/L (21.0-32.0); Calcium 9.6 mg/dL (8.5-10.1); Chloride 97 mmol/L (98-107); Estimated GFR 64.09 (mL/min/1.73m2); Glucose 102 mg/dL (74-106); Potassium 3.5 mmol/L (3.5-5.1); Sodium 138 mmol/L (136-145); Total Protein 8.5 g/dL (6.4-8.2)
== END 2023-10-04 14:35 | disposition home or self-care (01) ==
LOC: LBO 14:35
PROVIDERS: PCP Nurse Practitioner; Visit Provider Nurse Practitioner Family
DX: K74.00 Hepatic fibrosis, unspecified (principal)
CPT/HCPCS: 36415; 80053; 85025; 85610

== ENCOUNTER 2023-10-26 23:30 | Emergency (ER) | payer BC, SELFPAY ==
--- NOTE | 2023-10-26 23:30 | DI.RAD_ITS ---
Exam(s) XR SHOULDER RT COMPLETE 2+V EXAM: XR SHOULDER RT COMPLETE 2+V CLINICAL HISTORY: fell, hit shoulder, eval for fx. TECHNIQUE: 2D digital imaging was performed of the right shoulder. Five images were obtained. AP, Grashey, Y-view and axillary views were obtained. COMPARISON: No exams were available for comparison FINDINGS: BONES: There is an acute nondisplaced fracture through the surgical neck of the proximal right humeru s. No bony destructive lesion is seen. JOINTS: No dislocation present. The acromioclavicular and glenohumeral joints are well maintained. SOFT TISSUE: There is a cardiac monitoring device seen on the right chest wall. IMPRESSION: Acute nondisplaced right surgical neck fracture. DATA REPOSITORY: RADIATION DOSE DELIVERED:
[2023-10-26 23:34] VITALS: BP 127/83; PULSE 85; RESP 18; TEMP 36.7; O2SAT 97
--- NOTE | 2023-10-26 23:43 | W.ED.GENAD ---
Discharge Plan Disposition Patient Disposition: Home Condition: Good Discharge Details Chief Complaint: Orthopedic Clinical Impression: Closed fracture of neck of right humerus Primary Care Provider: Carlita Zimmerman ED Provider: Brandyn Shah Home Meds and New Rx's Prescriptions: No Action (DME) Home INR Machine See Rx Instructions .Route .MEDSUPPLY Qty: 1 0RF Rx Instructions: Use weekly and PRN for INR level monitoring torsemide 100 mg tablet 100 mg PO DAILY Qty: 180 1RF Rx Instructions: per [facility] Cardiology (11/21/22)(inc 01/04/23) Jardiance 10 mg tablet 10 mg PO DAILY Qty: 90 3RF aspirin [Children's Aspirin] 81 mg tablet,chewable 81 mg PO DAILY Qty: 90 3RF atorvastatin 20 mg tablet 20 mg PO QHS Qty: 90 3RF loratadine 10 mg tablet 10 mg PO DAILY Rx Instructions: for allergies gabapentin 600 mg tablet 600 mg PO HS Qty: 90 3RF Rx Instructions: dx: hot flashes torsemide 20 mg tablet 20 mg PO BID Rx Instructions: 03/15/23 Increased torsemide to 120 mg bid spironolactone 25 mg tablet 25 mg PO DAILY cholecalciferol (vitamin D3) 1,250 mcg (50,000 unit) capsule 1,250 mcg PO QWEEK Qty: 12 3RF Patient Comments: pt states not taking warfarin 5 mg tablet See Rx Instructions .ROUTE .COMPLEX Qty: 90 3RF Protocol: Dose Management Condition: Monday Dose/Route: 5 mg Instruction: 1 x 5 mg tablet Condition: Monday Dose/Route: 5 mg Instruction: 1 x 5 mg tablet Condition: Monday Dose/Route: 5 mg Instruction: 1 x 5 mg tablet Condition: Monday Dose/Route: 7.5 mg Instruction: 1.5 x 5 mg tablets Condition: Dose/Route: 7.5 mg Instruction: 1.5 x 5 mg tablets Condition: Monday Dose/Route: 5 mg Instruction: 1 x 5 mg tablet Condition: Monday Dose/Route: 5 mg Instruction: 1 x 5 mg tablet Protocol Text: Adjustment Start Date: Monday10/20/23 INR Value: 2.3 INR Date: 10/19/23 Recheck Date: 10/27/23 Additional Instructions: dosiong/recheck reviewed w/pt- Had LM x2 10/18 for pt to call [facility] Dose Instruction: TAKE ONE TABLET BY MOUTH EVERY DAY Rx Instructions: TAKE ONE TABLET BY MOUTH EVERY DAY omeprazole 20 mg capsule,delayed release(DR/EC) 20 mg PO DAILY Qty: 90 3RF trazodone 50 mg tablet 50 mg PO QHS PRN (Reason: sleep) Qty: 90 3RF Patient Comments: pt states not taking potassium chloride 20 mEq tablet,ER particles/crystals See Rx Instructions .ROUTE .COMPLEX Qty: 224 5RF Dose Instruction: TAKE 2 TABLETS BY MOUTH TWICE DAILY Rx Instructions: TAKE 2 TABLETS BY MOUTH TWICE DAILY Discharge Instructions Instructions: Upper Arm Fracture ED Additional Instructions: At this time you have evidence of a small fracture in your proximal humerus. Please keep the cuff and collar splint on at all times until you follow-up with the medical communication specialist. Please take at 1000 mg of Tylenol every 6 hours, apply the Voltaren gel every 6 hours, and ice the area as needed. Please take the oxycodone is only as needed for breakthrough pain. Please follow-up closely with the medical communication specialist. If you notice any worsening of your symptoms, or any new symptoms such as vomiting, diarrhea, fever, chills, shortness of breath, chest pain, numbness, weakness, or fainting , please return immediately to the emergency department for reevaluation. Please follow up with your primary care provider as soon as possible for reassessment and reevaluation. As always, it was a pleasure participating in your medical care today. Referrals: Ananda Ortega MD [ [facility] STAFF PHYSICIAN] - Ty Castaneda MD [ [facility] STAFF PHYSICIAN] - Carlita Zimmerman NP [Primary Care Provider] - [facility] General Date/Time Provider Initiated Documentation: 10/26/23 23:32. [facility] Narrative: This is a pleasant 63-year-old female with a past medical history of hypertrophic cardiomyopathy, GERD, A-fib/flutter on Coumadin, chronic kidney disease, with an ICD, who is currently on the heart transplant list, who presents today for evaluation of right shoulder pain. Patient states that about 45 minutes ago she was on her bed, rolled off to try to grab something and fell and landed on her right shoulder. She had immediate pain. Pain is worse with movement. She did not take any medication for the pain. She did not strike her head. No loss of consciousness. No other trauma. No other complaints at this time. She denies any numbness tingling or weakness. Related Data Home Medications ?Medication ?Instructions ?Recorded ?Confirmed loratadine 10 mg tablet 10 mg PO DAILY 07/12/19 10/26/23 gabapentin 600 mg tablet 600 mg PO HS #90 tabs 11/07/22 10/26/23 Home INR Machine #1 ea 02/04/23 05/09/23 torsemide 100 mg tablet 100 mg PO DAILY #180 tabs 02/04/23 10/26/23 aspirin 81 mg chewable tablet 81 mg PO DAILY #90 tabs 02/28/23 10/26/23 (Children's Aspirin) spironolactone 25 mg tablet 25 mg PO DAILY 03/17/23 10/26/23 torsemide 20 mg tablet 20 mg PO BID 03/17/23 10/26/23 cholecalciferol (vitamin D3) 1,250 1,250 mcg PO QWEEK #12 caps 05/29/23 10/26/23 mcg (50,000 unit) capsule atorvastatin 20 mg tablet 20 mg PO QHS #90 tabs 06/05/23 10/26/23 omeprazole 20 mg capsule,delayed 20 mg PO DAILY #90 caps 07/10/23 10/26/23 release warfarin 5 mg tablet See Rx Instructions .Route 07/10/23 10/26/23 .COMPLEX #90 tabs trazodone 50 mg tablet 50 mg PO QHS PRN sleep #90 tabs 07/31/23 10/26/23 potassium chloride 20 mEq See Rx Instructions .Route 09/26/23 10/26/23 tablet,extended release(part/cryst) .COMPLEX #224 tabs empagliflozin 10 mg tablet 10 mg PO DAILY #90 tabs 10/24/23 10/26/23 (Jardiance) Previous Rx's ?Medication ?Instructions ?Recorded gabapentin 600 mg tablet 600 mg PO HS #90 tabs 11/07/22 Home INR Machine #1 ea 02/04/23 torsemide 100 mg tablet 100 mg PO DAILY #180 tabs 02/04/23 aspirin 81 mg chewable tablet 81 mg PO DAILY #90 tabs 02/28/23 (Children's Aspirin) cholecalciferol (vitamin D3) 1,250 1,250 mcg PO QWEEK #12 caps 05/29/23 mcg (50,000 unit) capsule atorvastatin 20 mg tablet 20 mg PO QHS #90 tabs 06/05/23 omeprazole 20 mg capsule,delayed 20 mg PO DAILY #90 caps 07/10/23 release warfarin 5 mg tablet See Rx Instructions .Route 07/10/23 .COMPLEX #90 tabs trazodone 50 mg tablet 50 mg PO QHS PRN sleep #90 tabs 07/31/23 potassium chloride 20 mEq See Rx Instructions .Route 09/26/23 tablet,extended release(part/cryst) .COMPLEX #224 tabs empagliflozin 10 mg tablet 10 mg PO DAILY #90 tabs 10/24/23 (Jardiance) Allergies Allergy/AdvReac Type Severity Reaction Status Date / Time disopyramide phosphate (From Allergy Severe VT Verified 10/26/23 23:40 Norpace) peach Allergy Intermediate itchy Verified 10/26/23 23:40 ears, throat itchy walnut Allergy Intermediate eyes Verified 10/26/23 23:40 ballooned chlorpheniramine Allergy hay fever Verified 10/26/23 23:40 plums Allergy Intermediate lips felt Uncoded 10/26/23 23:40 itchy General Stated Complaint: Orthopedic AIDA: 4 Review of Systems All systems reviewed & are unremarkable except as noted in HPI and below Exam Narrative Exam Narrative: 1.Const: Well-nourished, Well-developed, appearing stated age 2.Eyes: PERRL, no conjunctival injection, and symmetrical lids. 3.ENT: Atraumatic external nose and ears. Moist MM. Neck: Symmetric, trachea midline, No thyromegaly. 4.CVS: +S1/S2, No murmurs or gallops. Peripheral pulses 2+ and equal in all extremities. Brisk capillary refill in all extremities. 5.RESP: Unlabored respiratory effort. Clear to auscultation bilaterally. No wheezes rales or rhonchi 6.GI: Soft, Nontender/Nondistended, No hepatosplenomegaly. No guarding or rebound. 7.MSK: Normocephalic, right upper extremity demonstrates no cervical thoracic or lumbar spine tenderness. No clavicular or scapular tenderness. Mild tenderness over the anterior aspect of the right humerus, no midshaft humeral pain no elbow pain forearm pain hand or wrist pain. Patient does have pain with active abduction, external and internal rotation and extension. No significant pain with any of these movements passively except for external rotation. 8.Skin: Warm, Dry. No rashes or lesions. 9.Neuro: experimental mechanic spacecraft II-XII grossly intact. Sensation grossly intact, no focal neurologic deficits. 10.Psych: (AAO) x3. Appropriate mood and affect Course Vital Signs Vital signs: Vital Signs Temperature 36.7 C 10/26/23 23:34 Pulse 85 10/26/23 23:34 Respiratory Rate 18 10/26/23 23:34 Blood Pressure 127/83 10/26/23 23:34 Pulse Oximetry 97 10/26/23 23:34 Temperature 36.7 C 10/26/23 23:34 Temperature Source Temporal Artery Scan 10/26/23 23:34 Pulse 85 10/26/23 23:34 Respiratory Rate 18 10/26/23 23:34 Respiratory Effort Normal 10/26/23 23:38 Blood Pressure 127/83 10/26/23 23:34 Pulse Oximetry 97 10/26/23 23:34 Oxygen Delivery Method Room Air 10/26/23 23:34 Oxygen Flow Rate 0 10/26/23 23:34 Pain Level 8 10/26/23 23:34 Medical Decision Making This is a pleasant 63-year-old female with a past medical history of hypertrophic cardiomyopathy, GERD, A-fib/flutter on Coumadin, chronic kidney disease, with an ICD, who is currently on the heart transplant list, who presents today for evaluation of right shoulder pain. Patient states that about 45 minutes ago she was on her bed, rolled off to try to grab something and fell and landed on her right shoulder. She had immediate pain. Pain is worse with movement. She did not take any medication for the pain. She did not strike her head. No loss of consciousness. No other trauma. No other complaints at this time. She denies any numbness tingling or weakness. Exam demonstrates minimal tenderness over the anterior aspect of the humeral head, no other tenderness throughout the extremity otherwise. No rib tenderness. Minimal pain with external rotation passively, no other significant passive pain or tenderness however with active activation of her rotator cuff she does have notable pain and tenderness in most directions including external rotation, abduction, and extension. Concern for rotator cuff injury, and potential bursal irritation. Lower likelihood for osseous fracture. Will get an x-ray, give Voltaren gel topically and Tylenol. Will monitor closely and reassess. 1:55 AM X-ray shows evidence of an acute nondisplaced fracture of the proximal right humerus. Will give a cuff and collar splint. Will recommend Voltaren gel and Tylenol for pain control as well as 3 oxycodone tablets for home use only as needed for breakthrough pain potentially for sleep. Will place orthopedic referral. Will give the patient a disc for home use, as well as push the images down to [facility] where she receives her potential heart transplant care. I have extensively reviewed the treatment plan and discharge instructions with the patient. I have addressed all patient concerns at this time. The patient was made aware of what symptoms to monitor for that would warrant a return to the emergency department. Discussed the plan with the patient, they demonstrate verbal understanding and agreement with our assessment and plan at this time. The documentation in this chart was dictated using delta[employer] dictation software. Please excuse any dictation errors. FINDINGS: Tubes, catheters and devices: Right chest wall electronic cardiac device incompletely evaluated on this exam. Bones/joints: There is acute, nondisplaced fracture of the proximal right humerus centered upon the surgical neck. No obvious articular involvement. No joint dislocation. Acromioclavicular and coracoclavicular intervals are preserved. Soft tissues: No focal abnormality. IMPRESSION: Acute, nondisplaced fracture of the proximal right humerus. Thank you for allowing us to participate in the care of your patient. Dictated and Authenticated by: Brendan Sutton MD 10/27/2023 1:23 AM Eastern Time ([place] & [place]) Quality:SDOH Health Related Social Needs: No Data to Display PFSH All Active Problems (Updated 10/27/23 @ 01:48 by Brandyn Shah DO) Closed fracture of neck of right humerus (Acute) Hypertrophic cardiomyopathy (Acute) GERD (gastroesophageal reflux disease) (Chronic) Warfarin anticoagulation (Acute) CKD (chronic kidney disease) stage 3, GFR 30-59 ml/min (Chronic) per most recent Cr (serious worsening this past year, 2022) Iron deficiency (Acute) Iron Sat: 11%, but w/o anemia (actually high/normal RBC, HGB) .. Pt reports CARD recommended iron infusion.. [ ] Venofer per PCP Hiatal hernia (Chronic) per CTA, per pt report .. consider EGD? Electrolyte imbalance risk (Acute) K started last year, post stroke, per pt report .. Daily K; Inc Torsemide .. per [facility] Card, but w/o ongoig labs has me concerned . ordeirng BMP/Magn and d/w PCP. Lung nodules (Acute) per CTA, per pt report ... Anticoagulation goal of INR 2 to 3 (Acute) Thrombus in heart chamber (Acute) left atria per [facility] nurs report ..[ ] TBD Heart transplant candidate (Acute) Preop testing (Acute) [facility] requesting Warfarin re-start 2' thrombus (01/10/23) + heart-transplant surgery planned ... Allergy to penicillin (Acute) 01/04/23 Saw Allergy at Abnormal LFTs (Acute) 09/23/22 GI Hepatic fibrosis (Acute ~09/2022) 09/23/22 GI 10/28/22 F/U visit GI Chronic heart failure with preserved ejection fraction (Acute) 05/23/22 Cardiology, Dr Palomo Receptive aphasia (Acute) CVA (cerebral vascular accident) (Chronic) Aphasia (Acute) History of HPV infection (Acute) Reactive atypia 06/22 + high risk HPV, colpo negative. 12/01/2022-Pap smear with HPV testing 01/2023. ASCUS Pap smear, negative HPV 02/07/2023-colposcopy with ECC-. 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) Abnormal Pap smear of cervix (Acute) Allergic rhinitis (Chronic 01/28/13) Zyrtec plus prn Flonase Atrial fibrillation (Chronic 05/10/11) 06/12 pul vein isolation/ablation [facility]; repeat [facility] 08/18/1208/13 LASHA EF 65% Chronic atrial flutter (Chronic 07/30/14) 06/12 pul vein isolation/ablation [facility]; repeat [facility] 08/18/1208/13 LASHA EF 65% Hot flashes (Chronic 07/22/13) RX Gabapentin USP current use of anticoagulants with INR goal of 2.0-3.0 (Chronic 07/11/12) [facility] requesting Warfarin re-start 2' thrombus (01/10/23) + heart-transplant surgery planned ... Changed to APIXABAN .. Home monitoring Primary cardiomyopathy (Chronic 05/10/11) Hereditary; AICD; hx V Fib arrest; AVJ ablation (05/2013); successful' ICD; ECHO [facility] 12/2014 EF 58% diastolic CHF Dr Russo Cardiology [facility], Echocardiogram 07/26/18 [facility], 05/04/20 echo at [facility] 05/21/20 F/U [facility] Cardiolodgy, 04/06/21 Outpt Stress Test done Dysuria (Acute) Routine general medical examination at a health care facility (Acute) Medical History COVID (~08/18/21) History of abnormal cervical Papanicolaou smear Normal colonoscopy (~06/2019) ICD (implantable cardioverter-defibrillator) in place Hx of cardiac arrest 2006 Surgical History Hx of prior ablation treatment Recurrent major depression in partial remission (08/01/12) [facility] Recurrent major depression in partial remission (01/01/11) [facility] pt. denies this Family History Father , [place] Alcohol use disorder Heart disease Sister Afib Heart disease Uncle Afib Heart disease Social History Smoking/Tobacco Use Status: Former Tobacco Use Quit Date: 04/03/89 Tobacco: How many years used: 3 Quit status: quit date established Smoking risk assessment performed?: Yes Alcohol Intake: never Drug use: Never Substance use type: does not use Adopted: No Caregiver/Support person: No Foster care: No Household members: none Housing: house Number of Children: 2 Communication Needs: Corrective Lenses Education Level: high school Do you need help understanding health information?: Rarely 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 [employer] Pets and animals: Yes Pets and animals: dog(s) Sexually active: No Do you think of yourself as: straight/heterosexual Current gender identity: female What is your relationship status?: How often do you talk on the phone with friends or family?: three or more times per week How often do you get together with friends or relatives?: three or more times per week Do you belong to any clubs or organized social groups?: yes Panel score (0-1 are the most socially isolated patients): 2 What type of physical activity do you participate in: walking Duration: 15-30 minutes/day Frequency: 5-6 times per week Shima/Gnosticist: Quaker Special shima needs: No Seatbelt use: always Helmet use: Yes Drive intox or ride w/intox motor bus driver: No Carbon monox detector in home: Yes Do you feel safe at home: Yes Do you feel safe in your relationship?: Yes Additional Social history: not in current relationship
[2023-10-26] MEDS: Acetaminophen 500 MG TAB 1000 MG PO (23:48)
[2023-10-26] MEDS: Diclofenac 1% Gel 100 GM TUBE TP (23:48)
[2023-10-27 01:05] VITALS: BP 101/74; PULSE 82; RESP 18; TEMP 36.7; O2SAT 96
--- NOTE | 2023-10-27 01:23 | DI.VRAD_ITS ---
PROCEDURE INFORMATION: Exam: XR Right Shoulder Exam date and time: 10/27/2023 12:23 AM Age: 63 years old Clinical indication: Injury or trauma; Fall; Blunt trauma (contusions or hematomas); Right; Injury details: Fell, hit shoulder, eval for FX TECHNIQUE: Imaging protocol: Radiologic exam of the right shoulder. Views: 2 or more views. COMPARISON: CT CHEST WO 04/25/2023 8:06 AM FINDINGS: Tubes, catheters and devices: Right chest wall electronic cardiac device incompletely evaluated on this exam. Bones/joints: There is acute, nondisplaced fracture of the proximal right humerus centered upon the surgical neck. No obvious articular involvement. No joint dislocation. Acromioclavicular and coracoclavicular intervals are preserved. Soft tissues: No focal abnormality. IMPRESSION: Acute, nondisplaced fracture of the proximal right humerus. Dictated and Authenticated by: Brendan Sutton MD. Ordering:SANGEETA Ahumada MD
== END 2023-10-27 02:42 | disposition home or self-care (01) ==
PROVIDERS: Emergency Provider Student in an Organized Health Care Education/Training Program; PCP Nurse Practitioner
DX: S42.214A Unspecified nondisplaced fracture of surgical neck of right humerus, initial encounter for closed fracture (principal); I25.10 Atherosclerotic heart disease of native coronary artery without angina pectoris; I42.2 Other hypertrophic cardiomyopathy; I48.92 Unspecified atrial flutter; N18.30 Chronic kidney disease, stage 3 unspecified; Z86.73 Personal history of transient ischemic attack (TIA), and cerebral infarction without residual deficits; Z79.01 Long term (current) use of anticoagulants; Z87.891 Personal history of nicotine dependence; W06.XXXA Fall from bed, initial encounter; Y93.89 Activity, other specified; Y92.013 Bedroom of single-family (private) house as the place of occurrence of the external cause
CPT/HCPCS: 99283; 73030

== ENCOUNTER 2023-11-03 11:06 | Outpatient (CLI) | payer BC, SELFPAY ==
--- NOTE | 2023-11-03 11:23 | DI.RAD_ITS ---
Exam(s) XR SHOULDER RT COMPLETE 2+V EXAM: XR SHOULDER RT COMPLETE 2+V CLINICAL HISTORY: right humerus fracture. TECHNIQUE: 2D digital imaging was performed. Five views. COMPARISON: CR,XR XR SHOULDER RT COMPLETE 2+V from 10/27/2023 FINDINGS: BONES: There has been no change in the alignment of the fracture of the surgical neck of the humerus which is not significantly displaced or angulated.. No additional fractures are identified. No bony destructive lesion is seen. JOINTS: No dislocation present. No significant degenerative changes. AC joint intact. SOFT TISSUE: Pacemaker overlying right upper chest. IMPRESSION: stable fracture alignment. DATA REPOSITORY: RADIATION DOSE DELIVERED:
== END 2023-11-03 11:07 | disposition home or self-care (01) ==
LOC: DIORS 11:07
PROVIDERS: PCP Nurse Practitioner; Visit Provider Physician Assistant
DX: S42.211A Unspecified displaced fracture of surgical neck of right humerus, initial encounter for closed fracture (principal)
CPT/HCPCS: 73030

== ENCOUNTER 2023-11-12 00:26 | Outpatient (RCR) | payer BC, SELFPAY ==
[2023-11-04 07:21] VITALS: BP 116/80; PULSE 73; RESP 16; TEMP 36; O2SAT 97
[2023-11-04] MEDS: Enoxaparin 60 MG/0.6 ML SYR SC ×2 (07:23→17:49)
[2023-11-04 17:47] VITALS: BP 121/82; PULSE 86; RESP 18; TEMP 36.9; O2SAT 98
[2023-11-05] MEDS: Enoxaparin 60 MG/0.6 ML SYR SC ×2 (07:58→19:40)
[2023-11-06] MEDS: Enoxaparin 60 MG/0.6 ML SYR SC ×2 (06:50→17:18)
[2023-11-07] MEDS: Enoxaparin 60 MG/0.6 ML SYR SC (06:57)
[2023-11-09] MEDS: Enoxaparin 60 MG/0.6 ML SYR SC ×2 (06:50→17:49)
[2023-11-10] MEDS: Enoxaparin 60 MG/0.6 ML SYR SC ×2 (07:02→18:20)
[2023-11-10 18:17] VITALS: BP 107/75; PULSE 75; RESP 16; TEMP 36.5; O2SAT 94
[2023-11-11] MEDS: Enoxaparin 60 MG/0.6 ML SYR SC ×2 (07:00→18:00)
[2023-11-12] MEDS: Enoxaparin 60 MG/0.6 ML SYR SC (07:10)
== END 2023-12-02 23:59 | disposition home or self-care (01) ==
LOC: INF 00:26
PROVIDERS: PCP Nurse Practitioner; Visit Provider Family Medicine
DX: I23.6 Thrombosis of atrium, auricular appendage, and ventricle as current complications following acute myocardial infarction
CPT/HCPCS: 96372; J1650

== ENCOUNTER 2024-03-05 10:10 | Outpatient (REF) | payer BC, SELFPAY ==
[2024-03-05 10:57] LABS: ALT 32 U/L (14-59); AST 22 U/L (15-37); Albumin 3.6 g/dL (3.4-5.0); Alkaline Phosphatase 277 U/L (46-116); Anion Gap 8.9 mmol/L (3-11); BUN 31 mg/dL (7-18); Bilirubin, Total 0.27 mg/dL (0.2-1.0); CO2 27.1 mmol/L (21.0-32.0); CREATININE 1.2 mg/dL (0.55-1.02); Calcium 9.3 mg/dL (8.5-10.1); Chloride 105 mmol/L (98-107); Estimated GFR 51.18 (mL/min/1.73m2); Glucose 97 mg/dL (74-106); Potassium 4.6 mmol/L (3.5-5.1); Sodium 141 mmol/L (136-145); Total Protein 7.1 g/dL (6.4-8.2)
[2024-03-05 11:00] LABS: HCT 33.3 % (36.0-46.0); HGB 10.6 g/dL (11.2-15.7); MCH 33.9 pg (27.0-33.0); MCHC 31.8 % (32.0-36.0); MCV 106 fL (80-95); MPV 9.9 fL (8.0-11.0); Platelet Count 399 10^3/uL (130-400); RBC 3.13 10^6/uL (3.93-5.22); RDW 14.4 % (11.7-14.6); WBC 8.59 10^3/uL (4.4-10.8)
== END 2024-03-05 10:11 | disposition home or self-care (01) ==
LOC: LBN 10:10
PROVIDERS: PCP Nurse Practitioner; Visit Provider Nurse Practitioner Family
DX: I42.2 Other hypertrophic cardiomyopathy (principal)
CPT/HCPCS: 80053; 85027; 80197

== ENCOUNTER 2024-03-11 17:09 | Outpatient (REF) | payer BC, SELFPAY ==
[2024-03-11 10:05] LABS: HGB 11.1 g/dL (11.2-15.7); MCH 33.8 pg (27.0-33.0); MCHC 32.6 % (32.0-36.0); MCV 104 fL (80-95); MPV 9.8 fL (8.0-11.0); Platelet Count 411 10^3/uL (130-400); RBC 3.28 10^6/uL (3.93-5.22); RDW 14.2 % (11.7-14.6); RDW-SD 54.5 fL; WBC 9.57 10^3/uL (4.4-10.8)
[2024-03-11 10:15] LABS: ALT 34 U/L (14-59); AST 28 U/L (15-37); Albumin 3.9 g/dL (3.4-5.0); Alkaline Phosphatase 337 U/L (46-116); BUN 37 mg/dL (7-18); Bilirubin, Total 0.24 mg/dL (0.2-1.0); CREATININE 1.1 mg/dL (0.55-1.02); Calcium 9.7 mg/dL (8.5-10.1); Chloride 104 mmol/L (98-107); Estimated GFR 56.81 (mL/min/1.73m2); Glucose 103 mg/dL (74-106); Potassium 4.5 mmol/L (3.5-5.1); Sodium 142 mmol/L (136-145); Total Protein 7.5 g/dL (6.4-8.2)
[2024-03-12 10:55] LABS: Tacrolimus 10.6 ng/mL (See Note)
== END 2024-03-11 17:10 | disposition home or self-care (01) ==
LOC: LBN 17:09
PROVIDERS: PCP Nurse Practitioner; Visit Provider Nurse Practitioner Family
DX: I42.2 Other hypertrophic cardiomyopathy (principal); Z94.1 Heart transplant status
CPT/HCPCS: 80053; 85027; 80197

== ENCOUNTER 2024-03-18 16:29 | Outpatient (REF) | payer BC, MEDICAID, SELFPAY ==
[2024-03-18 09:41] LABS: Abs Immature Grans 0.43 10^3/uL (0.0-0.06); Absolute Basophil Count 0.05 10^3/uL (0.0-0.2); Absolute Eosinophil Count 0.18 10^3/uL (0.0-0.7); Absolute Lymphocyte Count 1.38 10^3/uL (1.2-3.4); Absolute Monocyte Count 0.92 10^3/uL (0.1-0.8); Absolute Neutrophil Count 5.87 10^3/uL (1.2-6.7); Basophils % 0.6 %; HCT 34.8 % (36.0-46.0); HGB 11.4 g/dL (11.2-15.7); Immature Grans % 4.9 %; Lymphocytes % 15.6 %; MCH 34.1 pg (27.0-33.0); MCHC 32.8 % (32.0-36.0); MCV 104 fL (80-95); MPV 9.6 fL (8.0-11.0); Monocytes % 10.4 %; Neutrophils % 66.5 %; Platelet Count 428 10^3/uL (130-400); RBC 3.34 10^6/uL (3.93-5.22); RDW 13.8 % (11.7-14.6); RDW-SD 53.1 fL; WBC 8.83 10^3/uL (4.4-10.8)
[2024-03-18 09:50] LABS: ALT 20 U/L (14-59); AST 27 U/L (15-37); Albumin 3.9 g/dL (3.4-5.0); Alkaline Phosphatase 351 U/L (46-116); Anion Gap 10.5 mmol/L (3-11); BUN 48 mg/dL (7-18); Bilirubin, Total 0.29 mg/dL (0.2-1.0); CO2 26.5 mmol/L (21.0-32.0); CREATININE 1.5 mg/dL (0.55-1.02); Calcium 9.7 mg/dL (8.5-10.1); Chloride 103 mmol/L (98-107); Estimated GFR 39.16 (mL/min/1.73m2); Glucose 98 mg/dL (74-106); Potassium 4.6 mmol/L (3.5-5.1); Sodium 140 mmol/L (136-145); Total Protein 7.4 g/dL (6.4-8.2)
[2024-03-19 12:24] LABS: Tacrolimus 8.8 ng/mL (See Note)
== END 2024-03-18 16:30 | disposition home or self-care (01) ==
LOC: LBN 16:29
PROVIDERS: PCP Nurse Practitioner; Visit Provider Nurse Practitioner Family
DX: Z94.1 Heart transplant status (principal)
CPT/HCPCS: 80053; 80197; 85025

== ENCOUNTER 2024-04-01 14:54 | Outpatient (REF) | payer BC, MEDICAID, SELFPAY ==
[2024-04-01 10:02] LABS: Abs Immature Grans 1.16 10^3/uL (0.0-0.06); Absolute Basophil Count 0.05 10^3/uL (0.0-0.2); Absolute Eosinophil Count 0.25 10^3/uL (0.0-0.7); Absolute Lymphocyte Count 0.96 10^3/uL (1.2-3.4); Absolute Neutrophil Count 4.86 10^3/uL (1.2-6.7); Basophils % 0.6 %; Eosinophils % 2.9 %; HCT 32.9 % (36.0-46.0); HGB 10.5 g/dL (11.2-15.7); Immature Grans % 13.5 %; Lymphocytes % 11.2 %; MCH 33.7 pg (27.0-33.0); MCHC 31.9 % (32.0-36.0); MCV 105 fL (80-95); MPV 9.8 fL (8.0-11.0); Monocytes % 15.2 %; Neutrophils % 56.6 %; Platelet Count 293 10^3/uL (130-400); RBC 3.12 10^6/uL (3.93-5.22); RDW 14.1 % (11.7-14.6); RDW-SD 55.1 fL; WBC 8.58 10^3/uL (4.4-10.8)
[2024-04-01 10:19] LABS: ALT 28 U/L (14-59); AST 29 U/L (15-37); Albumin 3.6 g/dL (3.4-5.0); Alkaline Phosphatase 342 U/L (46-116); Anion Gap 11.9 mmol/L (3-11); BUN 25 mg/dL (7-18); Bilirubin, Total 0.21 mg/dL (0.2-1.0); CO2 23.1 mmol/L (21.0-32.0); CREATININE 1.1 mg/dL (0.55-1.02); Calcium 8.9 mg/dL (8.5-10.1); Chloride 105 mmol/L (98-107); Diff Comment Manual Differential; Estimated GFR 56.81 (mL/min/1.73m2); GGT 440 U/L (5-55); Glucose 100 mg/dL (74-106); Potassium 4.6 mmol/L (3.5-5.1); Sodium 140 mmol/L (136-145); Total Protein 6.8 g/dL (6.4-8.2)
[2024-04-01 10:20] LABS: Macrocytosis 1+
== END 2024-04-01 14:55 | disposition home or self-care (01) ==
LOC: LBN 14:54
PROVIDERS: PCP Nurse Practitioner; Visit Provider Nurse Practitioner Family
DX: Z94.1 Heart transplant status (principal)
CPT/HCPCS: 80053; 80197; 82977; 85025

== ENCOUNTER 2024-04-08 09:36 | Outpatient (REF) | payer MEDICAID, SELFPAY ==
[2024-04-08 10:08] LABS: Abs Immature Grans 1.46 10^3/uL (0.0-0.06); HGB 10.6 g/dL (11.2-15.7); MCH 33.2 pg (27.0-33.0); MCHC 31.2 % (32.0-36.0); MCV 107 fL (80-95); MPV 9.7 fL (8.0-11.0); Platelet Count 404 10^3/uL (130-400); RBC 3.19 10^6/uL (3.93-5.22); RDW 13.8 % (11.7-14.6); RDW-SD 54.3 fL; WBC 10.24 10^3/uL (4.4-10.8)
[2024-04-08 10:16] LABS: ALT 19 U/L (14-59); AST 24 U/L (15-37); Albumin 3.7 g/dL (3.4-5.0); Alkaline Phosphatase 361 U/L (46-116); Anion Gap 10.4 mmol/L (3-11); BUN 27 mg/dL (7-18); Bilirubin, Total 0.52 mg/dL (0.2-1.0); CO2 25.6 mmol/L (21.0-32.0); CREATININE 1.2 mg/dL (0.55-1.02); Calcium 9.6 mg/dL (8.5-10.1); Chloride 103 mmol/L (98-107); Estimated GFR 51.18 (mL/min/1.73m2); Glucose 95 mg/dL (74-106); Potassium 4.3 mmol/L (3.5-5.1); Sodium 139 mmol/L (136-145); Total Protein 7.2 g/dL (6.4-8.2)
[2024-04-08 10:50] LABS: Absolute Lymphocyte Count 1.84 10^3/uL (1.2-3.4); Absolute Monocyte Count 1.54 10^3/uL (0.1-0.8); Absolute Neutrophil Count 6.55 10^3/uL (1.2-6.7); Bands % 4 %; Diff Comment Manual Differential
[2024-04-08 10:51] LABS: Macrocytosis 2+
[2024-04-09 13:15] LABS: Tacrolimus 8.1 ng/mL (See Note)
== END 2024-04-08 09:37 | disposition home or self-care (01) ==
LOC: NCHCN 09:36
PROVIDERS: PCP Nurse Practitioner; Visit Provider Nurse Practitioner Family
DX: I42.2 Other hypertrophic cardiomyopathy (principal); Z94.1 Heart transplant status
CPT/HCPCS: 80053; 80197; 85025

== ENCOUNTER 2024-04-15 15:37 | Outpatient (REF) | payer MEDICAID, SELFPAY ==
[2024-04-15 16:02] LABS: Abs Immature Grans 1.52 10^3/uL (0.0-0.06); HCT 32.2 % (36.0-46.0); HGB 10.1 g/dL (11.2-15.7); MCH 33.3 pg (27.0-33.0); MCHC 31.4 % (32.0-36.0); MCV 106 fL (80-95); MPV 10.3 fL (8.0-11.0); Platelet Count 442 10^3/uL (130-400); RBC 3.03 10^6/uL (3.93-5.22); RDW 13.8 % (11.7-14.6); WBC 12.71 10^3/uL (4.4-10.8)
[2024-04-15 16:16] LABS: ALT 25 U/L (14-59); AST 25 U/L (15-37); Albumin 3.7 g/dL (3.4-5.0); Alkaline Phosphatase 372 U/L (46-116); Anion Gap 9.7 mmol/L (3-11); BUN 36 mg/dL (7-18); Bilirubin, Total 0.26 mg/dL (0.2-1.0); CO2 26.3 mmol/L (21.0-32.0); CREATININE 1.2 mg/dL (0.55-1.02); Calcium 9.7 mg/dL (8.5-10.1); Chloride 105 mmol/L (98-107); Estimated GFR 51.18 (mL/min/1.73m2); Glucose 95 mg/dL (74-106); Potassium 4.8 mmol/L (3.5-5.1); Sodium 141 mmol/L (136-145); Total Protein 6.9 g/dL (6.4-8.2)
[2024-04-15 16:21] LABS: Absolute Eosinophil Count 0.38 10^3/uL (0.0-0.7); Absolute Lymphocyte Count 3.05 10^3/uL (1.2-3.4); Absolute Monocyte Count 1.91 10^3/uL (0.1-0.8); Absolute Neutrophil Count 7.37 10^3/uL (1.2-6.7); Atypical Lymphocytes % 7 %; Bands % 7 %
[2024-04-15 16:22] LABS: Diff Comment Manual Differential; Macrocytosis 1+
[2024-04-17 13:37] LABS: Tacrolimus 7.4 ng/mL (See Note)
[2024-04-18 17:29] LABS: CMV DNA Detect/Quant, P Undetected IU/mL (Undetected)
== END 2024-04-15 15:38 | disposition home or self-care (01) ==
LOC: LBN 15:37
PROVIDERS: PCP Nurse Practitioner; Visit Provider Nurse Practitioner Family
DX: Z94.1 Heart transplant status (principal); I49.01 Ventricular fibrillation
CPT/HCPCS: 80053; 80197; 85025; 87497

== ENCOUNTER 2024-04-22 09:27 | Outpatient (CLI) | payer MEDICAID, SELFPAY ==
[2024-04-22 08:43] LABS: Abs Immature Grans 0.91 10^3/uL (0.0-0.06); HGB 10.3 g/dL (11.2-15.7); MCH 32.9 pg (27.0-33.0); MCHC 31.2 % (32.0-36.0); MCV 105 fL (80-95); MPV 9.4 fL (8.0-11.0); Platelet Count 384 10^3/uL (130-400); RBC 3.13 10^6/uL (3.93-5.22); RDW 13.4 % (11.7-14.6); RDW-SD 51.8 fL; WBC 10.51 10^3/uL (4.4-10.8)
[2024-04-22 09:14] LABS: Absolute Basophil Count 0.11 10^3/uL (0.0-0.2); Absolute Eosinophil Count 0.42 10^3/uL (0.0-0.7); Absolute Lymphocyte Count 1.16 10^3/uL (1.2-3.4); Absolute Monocyte Count 0.95 10^3/uL (0.1-0.8); Absolute Neutrophil Count 6.62 10^3/uL (1.2-6.7); Bands % 10 %
[2024-04-22 09:15] LABS: Diff Comment Manual Differential; Macrocytosis 2+; Metamyelocytes % 8; Myelocytes % 4
[2024-04-22 09:33] LABS: ALT 18 U/L (14-59); AST 20 U/L (15-37); Albumin 3.7 g/dL (3.4-5.0); Alkaline Phosphatase 376 U/L (46-116); BUN 28 mg/dL (7-18); Bilirubin, Direct 0.1 mg/dL (0.0-0.2); Bilirubin, Total 0.28 mg/dL (0.2-1.0); CO2 24.8 mmol/L (21.0-32.0); CREATININE 1.1 mg/dL (0.55-1.02); Calcium 9.7 mg/dL (8.5-10.1); Chloride 106 mmol/L (98-107); Estimated GFR 56.81 (mL/min/1.73m2); Glucose 95 mg/dL (74-106); Magnesium 1.7 mg/dL (1.8-2.4); Potassium 4.4 mmol/L (3.5-5.1); Sodium 143 mmol/L (136-145); Total Protein 7.2 g/dL (6.4-8.2)
[2024-04-23 09:10] LABS: Tacrolimus 8.7 ng/mL (See Note)
[2024-04-24 17:39] LABS: CMV DNA Detect/Quant, P Undetected IU/mL (Undetected)
== END 2024-04-22 09:28 | disposition home or self-care (01) ==
LOC: LBO 09:28
PROVIDERS: PCP Nurse Practitioner; Visit Provider Internal Medicine Cardiovascular Disease
DX: Z94.1 Heart transplant status (principal); T86.23 Heart transplant infection
CPT/HCPCS: 36415; 80076; 82947; 84520; 80197; 82310; 82374; 82435; 82565; 83735; 84100; 84132; 84295; 85025; 85610; 87497

== ENCOUNTER 2024-05-03 10:21 | Outpatient (RCR) | payer MEDICAID, SELFPAY ==
--- NOTE | 2024-04-19 11:00 | RT.EKG_ITS ---
APPROVED REPORT Exam: Resting ECG Reason for Exam: Baseline Patient Location: O HR:103 bpm ECG Measurements Heart Rate 103 AXIS NH 131 P 34 QRSd 87 QRS 67 QT 415 T 13 QTc 544 Conclusion Sinus tachycardia...rate> 99 Borderline T abnormalities, anterior leads...T flat or neg, V2-V4 Prolonged QT interval...QTc >500mS
== END 2024-05-03 23:59 | disposition home or self-care (01) ==
LOC: CR 10:21
PROVIDERS: PCP Nurse Practitioner; Visit Provider Internal Medicine Cardiovascular Disease
DX: I42.1 Obstructive hypertrophic cardiomyopathy (principal); Z94.1 Heart transplant status; Z51.89 Encounter for other specified aftercare
CPT/HCPCS: S9472

== ENCOUNTER 2024-05-06 02:16 | Outpatient (CLI) | payer MEDICAID, SELFPAY ==
[2024-05-06 10:37] LABS: Abs Immature Grans 0.59 10^3/uL (0.0-0.06); HCT 31.2 % (36.0-46.0); HGB 9.9 g/dL (11.2-15.7); MCH 32.9 pg (27.0-33.0); MCHC 31.7 % (32.0-36.0); MCV 104 fL (80-95); MPV 9.4 fL (8.0-11.0); Platelet Count 354 10^3/uL (130-400); RBC 3.01 10^6/uL (3.93-5.22); RDW 13.2 % (11.7-14.6); RDW-SD 50.6 fL; WBC 12.79 10^3/uL (4.4-10.8)
[2024-05-06 10:49] LABS: Absolute Lymphocyte Count 1.79 10^3/uL (1.2-3.4); Absolute Neutrophil Count 10.36 10^3/uL (1.2-6.7); Bands % 2 %; Prothrombin Time 10.5 sec (9.1-11.1)
[2024-05-06 10:50] LABS: Absolute Basophil Count 0.13 10^3/uL (0.0-0.2); Absolute Eosinophil Count 0.38 10^3/uL (0.0-0.7); Diff Comment Manual Differential; Metamyelocytes % 1; RBC Morphology Normal
[2024-05-06 11:06] LABS: ALT 24 U/L (14-59); AST 17 U/L (15-37); Albumin 3.8 g/dL (3.4-5.0); Alkaline Phosphatase 389 U/L (46-116); Anion Gap 10.8 mmol/L (3-11); BUN 29 mg/dL (7-18); Bilirubin, Direct 0.1 mg/dL (0.0-0.2); Bilirubin, Total 0.27 mg/dL (0.2-1.0); CO2 24.2 mmol/L (21.0-32.0); CREATININE 1.5 mg/dL (0.55-1.02); Calcium 9.5 mg/dL (8.5-10.1); Chloride 106 mmol/L (98-107); Estimated GFR 39.16 (mL/min/1.73m2); Glucose 150 mg/dL (74-106); Magnesium 1.4 mg/dL (1.8-2.4); PHOSPHORUS 2.6 mg/dL (2.6-4.7); Potassium 4.7 mmol/L (3.5-5.1); Sodium 141 mmol/L (136-145); Total Protein 7.3 g/dL (6.4-8.2)
[2024-05-07 10:36] LABS: Tacrolimus 8.1 ng/mL (See Note)
[2024-05-08 18:42] LABS: CMV DNA Detect/Quant, P Undetected IU/mL (Undetected)
== END 2024-05-06 02:17 | disposition home or self-care (01) ==
PROVIDERS: Internal Medicine Cardiovascular Disease; PCP Nurse Practitioner
DX: T86.23 Heart transplant infection (principal); Z94.1 Heart transplant status
CPT/HCPCS: 36415; 80053; 80076; 80197; 83735; 84100; 85025; 85610; 87497

== ENCOUNTER 2024-05-13 02:39 | Outpatient (CLI) | payer MEDICAID, SELFPAY ==
[2024-05-13 09:53] LABS: Abs Immature Grans 0.27 10^3/uL (0.0-0.06); Absolute Basophil Count 0.08 10^3/uL (0.0-0.2); Absolute Eosinophil Count 0.28 10^3/uL (0.0-0.7); Absolute Lymphocyte Count 1.04 10^3/uL (1.2-3.4); Absolute Neutrophil Count 7.12 10^3/uL (1.2-6.7); Basophils % 0.8 %; Eosinophils % 2.9 %; HCT 33.7 % (36.0-46.0); HGB 10.3 g/dL (11.2-15.7); Immature Grans % 2.8 %; Lymphocytes % 10.6 %; MCH 32.5 pg (27.0-33.0); MCHC 30.6 % (32.0-36.0); MCV 106 fL (80-95); MPV 9.9 fL (8.0-11.0); Monocytes % 10.2 %; Neutrophils % 72.7 %; Platelet Count 355 10^3/uL (130-400); RBC 3.17 10^6/uL (3.93-5.22); RDW-SD 51.3 fL; WBC 9.79 10^3/uL (4.4-10.8)
[2024-05-13 10:04] LABS: Prothrombin Time 10.3 sec (9.1-11.1)
[2024-05-13 10:36] LABS: ALT 28 U/L (14-59); AST 24 U/L (15-37); Albumin 3.9 g/dL (3.4-5.0); Alkaline Phosphatase 400 U/L (46-116); Anion Gap 8.6 mmol/L (3-11); BUN 20 mg/dL (7-18); Bilirubin, Total 0.31 mg/dL (0.2-1.0); CO2 23.4 mmol/L (21.0-32.0); Calcium 9.7 mg/dL (8.5-10.1); Chloride 109 mmol/L (98-107); Glucose 118 mg/dL (74-106); Magnesium 1.8 mg/dL (1.8-2.4); Potassium 3.9 mmol/L (3.5-5.1); Sodium 141 mmol/L (136-145); Total Protein 7.5 g/dL (6.4-8.2)
[2024-05-14 10:58] LABS: Tacrolimus 8.2 ng/mL (See Note)
[2024-05-15 15:36] LABS: CMV DNA Detect/Quant, P Undetected IU/mL (Undetected)
== END 2024-05-13 02:40 | disposition home or self-care (01) ==
PROVIDERS: PCP Nurse Practitioner; Visit Provider Internal Medicine Cardiovascular Disease
DX: Z94.1 Heart transplant status (principal)
CPT/HCPCS: 36415; 80053; 80197; 83735; 85025; 85610; 87497

== ENCOUNTER 2024-05-20 02:04 | Outpatient (CLI) | payer MEDICAID, SELFPAY ==
[2024-05-20 08:06] LABS: Abs Immature Grans 0.11 10^3/uL (0.0-0.06); Absolute Basophil Count 0.06 10^3/uL (0.0-0.2); Absolute Eosinophil Count 0.27 10^3/uL (0.0-0.7); Absolute Lymphocyte Count 1.24 10^3/uL (1.2-3.4); Absolute Monocyte Count 1.03 10^3/uL (0.1-0.8); Absolute Neutrophil Count 4.48 10^3/uL (1.2-6.7); Basophils % 0.8 %; Eosinophils % 3.8 %; HCT 30.8 % (36.0-46.0); HGB 9.5 g/dL (11.2-15.7); Immature Grans % 1.5 %; Lymphocytes % 17.2 %; MCH 32.5 pg (27.0-33.0); MCHC 30.8 % (32.0-36.0); MCV 106 fL (80-95); MPV 9.4 fL (8.0-11.0); Monocytes % 14.3 %; Neutrophils % 62.4 %; Platelet Count 338 10^3/uL (130-400); RBC 2.92 10^6/uL (3.93-5.22); RDW-SD 50.4 fL; WBC 7.19 10^3/uL (4.4-10.8)
[2024-05-20 08:12] LABS: Prothrombin Time 10.4 sec (9.1-11.1)
[2024-05-20 08:18] LABS: ALT 24 U/L (14-59); AST 18 U/L (15-37); Albumin 3.6 g/dL (3.4-5.0); Alkaline Phosphatase 372 U/L (46-116); Anion Gap 9.6 mmol/L (3-11); BUN 19 mg/dL (7-18); Bilirubin, Total 0.24 mg/dL (0.2-1.0); CO2 24.4 mmol/L (21.0-32.0); CREATININE 0.9 mg/dL (0.55-1.02); Calcium 9.3 mg/dL (8.5-10.1); Chloride 108 mmol/L (98-107); Estimated GFR 72.28 (mL/min/1.73m2); Glucose 101 mg/dL (74-106); Magnesium 1.7 mg/dL (1.8-2.4); PHOSPHORUS 2.7 mg/dL (2.6-4.7); Sodium 142 mmol/L (136-145)
[2024-05-20 08:29] LABS: Diff Comment RBC Morph Reviewed; Macrocytosis 1+; Polychromasia Present
[2024-05-21 10:36] LABS: Tacrolimus 9.5 ng/mL (See Note)
[2024-05-22 15:42] LABS: CMV DNA Detect/Quant, P 37 IU/mL (Undetected)
== END 2024-05-20 02:05 | disposition home or self-care (01) ==
PROVIDERS: PCP Nurse Practitioner; Visit Provider Internal Medicine Cardiovascular Disease
DX: Z94.1 Heart transplant status (principal); T86.23 Heart transplant infection
CPT/HCPCS: 36415; 80053; 80197; 83735; 84100; 85025; 85610; 87497

== ENCOUNTER 2024-05-29 08:52 | Outpatient (RCR) | payer MEDICAID, SELFPAY | END 2024-05-31 23:59 | disposition home or self-care (01) | LOC: CR 08:52 | PROVIDERS: PCP Nurse Practitioner; Visit Provider Internal Medicine Cardiovascular Disease | DX: I25.10 Atherosclerotic heart disease of native coronary artery without angina pectoris (principal); Z51.89 Encounter for other specified aftercare; Z94.1 Heart transplant status | CPT/HCPCS: S9472 ==

== ENCOUNTER 2024-06-10 04:23 | Outpatient (CLI) | payer MEDICAID, SELFPAY ==
[2024-06-10 07:52] LABS: Abs Immature Grans 0.16 10^3/uL (0.0-0.06); Absolute Basophil Count 0.02 10^3/uL (0.0-0.2); Absolute Eosinophil Count 0.17 10^3/uL (0.0-0.7); Absolute Lymphocyte Count 1.18 10^3/uL (1.2-3.4); Absolute Monocyte Count 1.18 10^3/uL (0.1-0.8); Absolute Neutrophil Count 5.38 10^3/uL (1.2-6.7); Basophils % 0.2 %; Eosinophils % 2.1 %; HCT 31.1 % (36.0-46.0); HGB 9.9 g/dL (11.2-15.7); Lymphocytes % 14.6 %; MCH 32.1 pg (27.0-33.0); MCHC 31.8 % (32.0-36.0); MCV 101 fL (80-95); MPV 9.4 fL (8.0-11.0); Monocytes % 14.6 %; Neutrophils % 66.5 %; Platelet Count 405 10^3/uL (130-400); RBC 3.08 10^6/uL (3.93-5.22); RDW 12.8 % (11.7-14.6); RDW-SD 47.4 fL; WBC 8.09 10^3/uL (4.4-10.8)
[2024-06-10 08:03] LABS: Prothrombin Time 10.4 sec (9.1-11.1)
[2024-06-10 09:09] LABS: ALT 51 U/L (14-59); AST 37 U/L (15-37); Albumin 3.7 g/dL (3.4-5.0); Alkaline Phosphatase 388 U/L (46-116); Anion Gap 8.4 mmol/L (3-11); BUN 17 mg/dL (7-18); Bilirubin, Direct 0.2 mg/dL (0.0-0.2); Bilirubin, Total 0.3 mg/dL (0.2-1.0); CO2 26.6 mmol/L (21.0-32.0); CREATININE 0.7 mg/dL (0.55-1.02); Calcium 9.5 mg/dL (8.5-10.1); Chloride 109 mmol/L (98-107); Creatine Kinase 32 U/L (26-192); Estimated GFR 97.72 (mL/min/1.73m2); Glucose 93 mg/dL (74-106); LDH 181 U/L (81-234); Magnesium 1.6 mg/dL (1.8-2.4); PHOSPHORUS 2.3 mg/dL (2.6-4.7); Potassium 4.2 mmol/L (3.5-5.1); Sodium 144 mmol/L (136-145); Total Protein 6.8 g/dL (6.4-8.2); Uric Acid 1.8 mg/dL (2.6-6.0)
[2024-06-11 10:29] LABS: Tacrolimus 15.3 ng/mL (See Note)
[2024-06-12 12:46] LABS: CMV DNA Detect/Quant, P <35 IU/mL (Undetected)
== END 2024-06-10 04:24 | disposition home or self-care (01) ==
PROVIDERS: PCP Nurse Practitioner; Visit Provider Internal Medicine Cardiovascular Disease
DX: Z94.1 Heart transplant status (principal)
CPT/HCPCS: 36415; 80053; 80076; 82550; 80197; 83615; 83735; 84100; 84550; 85025; 85610; 87497

== ENCOUNTER 2024-06-18 01:45 | Outpatient (CLI) | payer MEDICAID, SELFPAY ==
[2024-06-18 09:50] LABS: Abs Immature Grans 0.12 10^3/uL (0.0-0.06); Absolute Basophil Count 0.05 10^3/uL (0.0-0.2); Absolute Eosinophil Count 0.28 10^3/uL (0.0-0.7); Absolute Lymphocyte Count 1.78 10^3/uL (1.2-3.4); Absolute Monocyte Count 1.42 10^3/uL (0.1-0.8); Absolute Neutrophil Count 5.83 10^3/uL (1.2-6.7); Basophils % 0.5 %; HCT 34.8 % (36.0-46.0); HGB 10.7 g/dL (11.2-15.7); Immature Grans % 1.3 %; Lymphocytes % 18.8 %; MCH 31.3 pg (27.0-33.0); MCHC 30.7 % (32.0-36.0); MCV 102 fL (80-95); MPV 9.3 fL (8.0-11.0); Neutrophils % 61.4 %; Platelet Count 360 10^3/uL (130-400); RBC 3.42 10^6/uL (3.93-5.22); RDW 13.1 % (11.7-14.6); RDW-SD 49.3 fL; WBC 9.48 10^3/uL (4.4-10.8)
[2024-06-18 10:00] LABS: Prothrombin Time 10.1 sec (9.1-11.1)
[2024-06-18 11:32] LABS: ALT 76 U/L (14-59); AST 62 U/L (15-37); Albumin 3.9 g/dL (3.4-5.0); Alkaline Phosphatase 417 U/L (46-116); Anion Gap 14.4 mmol/L (3-11); BUN 18 mg/dL (7-18); Bilirubin, Direct 0.3 mg/dL (0.0-0.2); Bilirubin, Total 0.4 mg/dL (0.2-1.0); CO2 23.6 mmol/L (21.0-32.0); CREATININE 1.1 mg/dL (0.55-1.02); Calcium 9.6 mg/dL (8.5-10.1); Chloride 105 mmol/L (98-107); Creatine Kinase 47 U/L (26-192); Estimated GFR 56.81 (mL/min/1.73m2); Glucose 129 mg/dL (74-106); LDH 264 U/L (81-234); Magnesium 1.7 mg/dL (1.8-2.4); PHOSPHORUS 2.5 mg/dL (2.6-4.7); Potassium 4.5 mmol/L (3.5-5.1); Sodium 143 mmol/L (136-145); Total Protein 7.3 g/dL (6.4-8.2); Uric Acid 2.6 mg/dL (2.6-6.0)
[2024-06-20 15:03] LABS: CMV DNA Detect/Quant, P 111 IU/mL (Undetected)
== END 2024-06-18 01:46 | disposition home or self-care (01) ==
PROVIDERS: PCP Nurse Practitioner; Visit Provider Internal Medicine Cardiovascular Disease
DX: Z94.1 Heart transplant status (principal); T86.23 Heart transplant infection
CPT/HCPCS: 36415; 80053; 80076; 82550; 80197; 83615; 83735; 84100; 84550; 85025; 85610; 87497

== ENCOUNTER 2024-07-01 01:51 | Outpatient (CLI) | payer MEDICAID, SELFPAY ==
[2024-07-01 08:33] LABS: Abs Immature Grans 0.05 10^3/uL (0.0-0.06); Absolute Basophil Count 0.05 10^3/uL (0.0-0.2); Absolute Eosinophil Count 0.34 10^3/uL (0.0-0.7); Absolute Lymphocyte Count 1.66 10^3/uL (1.2-3.4); Absolute Monocyte Count 1.08 10^3/uL (0.1-0.8); Absolute Neutrophil Count 3.28 10^3/uL (1.2-6.7); Basophils % 0.8 %; Eosinophils % 5.3 %; HCT 35.5 % (36.0-46.0); Immature Grans % 0.8 %; Lymphocytes % 25.7 %; MCH 31.5 pg (27.0-33.0); MCV 102 fL (80-95); MPV 9.2 fL (8.0-11.0); Monocytes % 16.7 %; Neutrophils % 50.7 %; Platelet Count 348 10^3/uL (130-400); RBC 3.49 10^6/uL (3.93-5.22); RDW 13.2 % (11.7-14.6); RDW-SD 48.5 fL; WBC 6.46 10^3/uL (4.4-10.8)
[2024-07-01 08:42] LABS: INR 1.1 (0.9-1.1); Prothrombin Time 10.6 sec (9.1-11.1)
[2024-07-01 08:47] LABS: ALT 31 U/L (14-59); AST 22 U/L (15-37); Albumin 3.8 g/dL (3.4-5.0); Alkaline Phosphatase 370 U/L (46-116); Anion Gap 10.2 mmol/L (3-11); BUN 15 mg/dL (7-18); Bilirubin, Direct 0.2 mg/dL (0.0-0.2); Bilirubin, Total 0.3 mg/dL (0.2-1.0); CO2 26.8 mmol/L (21.0-32.0); CREATININE 0.9 mg/dL (0.55-1.02); Calcium 9.8 mg/dL (8.5-10.1); Chloride 106 mmol/L (98-107); Estimated GFR 72.28 (mL/min/1.73m2); Glucose 98 mg/dL (74-106); LDH 208 U/L (81-234); Magnesium 1.7 mg/dL (1.8-2.4); PHOSPHORUS 2.8 mg/dL (2.6-4.7); Potassium 3.8 mmol/L (3.5-5.1); Sodium 143 mmol/L (136-145); Total Protein 7.3 g/dL (6.4-8.2)
[2024-07-02 13:02] LABS: Tacrolimus 7.5 ng/mL (See Note)
== END 2024-07-01 01:52 | disposition home or self-care (01) ==
PROVIDERS: PCP Nurse Practitioner; Visit Provider Nurse Practitioner Gerontology
DX: Z94.1 Heart transplant status (principal)
CPT/HCPCS: 36415; 80053; 80076; 80197; 83615; 83735; 84100; 85025; 85610

== ENCOUNTER 2024-07-01 08:35 | Outpatient (RCR) | payer MEDICAID, SELFPAY | END 2024-07-01 23:59 | disposition home or self-care (01) | LOC: CR 08:35 | PROVIDERS: PCP Nurse Practitioner; Visit Provider Internal Medicine Cardiovascular Disease | DX: I25.10 Atherosclerotic heart disease of native coronary artery without angina pectoris (principal); Z51.89 Encounter for other specified aftercare; Z94.1 Heart transplant status | CPT/HCPCS: S9472 ==

== ENCOUNTER 2024-07-03 09:00 | Outpatient (RCR) | payer BC, SELFPAY | END 2024-07-31 23:59 | disposition home or self-care (01) | LOC: CR 09:00 | PROVIDERS: PCP Nurse Practitioner; Visit Provider Internal Medicine Cardiovascular Disease | DX: I42.8 Other cardiomyopathies (principal); Z94.1 Heart transplant status; Z51.89 Encounter for other specified aftercare | CPT/HCPCS: S9472 ==

== ENCOUNTER 2024-07-05 09:58 | Outpatient (RCR) | payer BC, SELFPAY | END 2024-07-31 23:59 | disposition home or self-care (01) | LOC: CR 09:58 | PROVIDERS: PCP Nurse Practitioner; Visit Provider Internal Medicine Cardiovascular Disease | DX: I25.10 Atherosclerotic heart disease of native coronary artery without angina pectoris (principal); Z51.89 Encounter for other specified aftercare | CPT/HCPCS: S9472 ==

== ENCOUNTER 2024-07-08 03:27 | Outpatient (CLI) | payer BC, SELFPAY ==
[2024-07-08 08:32] LABS: Absolute Basophil Count 0.04 10^3/uL (0.0-0.2); Absolute Eosinophil Count 0.26 10^3/uL (0.0-0.7); Absolute Lymphocyte Count 1.54 10^3/uL (1.2-3.4); Absolute Monocyte Count 1.02 10^3/uL (0.1-0.8); Absolute Neutrophil Count 6.51 10^3/uL (1.2-6.7); Basophils % 0.4 %; Eosinophils % 2.7 %; HCT 32.3 % (36.0-46.0); Immature Grans % 1.1 %; Lymphocytes % 16.3 %; MCH 31.2 pg (27.0-33.0); MCV 101 fL (80-95); MPV 9.5 fL (8.0-11.0); Monocytes % 10.8 %; Neutrophils % 68.7 %; Platelet Count 410 10^3/uL (130-400); RBC 3.21 10^6/uL (3.93-5.22); RDW 13.2 % (11.7-14.6); RDW-SD 48.2 fL; WBC 9.47 10^3/uL (4.4-10.8)
[2024-07-08 08:42] LABS: Prothrombin Time 10.4 sec (9.1-11.1)
[2024-07-08 09:05] LABS: ALT 20 U/L (14-59); AST 14 U/L (15-37); Albumin 3.6 g/dL (3.4-5.0); Alkaline Phosphatase 311 U/L (46-116); Anion Gap 10.1 mmol/L (3-11); BUN 17 mg/dL (7-18); Bilirubin, Total 0.2 mg/dL (0.2-1.0); CO2 22.9 mmol/L (21.0-32.0); Calcium 9.3 mg/dL (8.5-10.1); Chloride 109 mmol/L (98-107); Glucose 92 mg/dL (74-106); Magnesium 1.7 mg/dL (1.8-2.4); Potassium 4.4 mmol/L (3.5-5.1); Sodium 142 mmol/L (136-145); Total Protein 6.8 g/dL (6.4-8.2)
[2024-07-08 09:25] LABS: Bilirubin, Direct 0.1 mg/dL (0.0-0.2); Creatine Kinase 40 U/L (26-192); LDH 179 U/L (81-234); PHOSPHORUS 2.6 mg/dL (2.6-4.7); Uric Acid 2.1 mg/dL (2.6-6.0)
[2024-07-10 14:55] LABS: CMV DNA Detect/Quant, P 144 IU/mL (Undetected)
== END 2024-07-08 03:28 | disposition home or self-care (01) ==
PROVIDERS: PCP Nurse Practitioner; Visit Provider Nurse Practitioner Gerontology
DX: Z94.1 Heart transplant status (principal); T86.23 Heart transplant infection
CPT/HCPCS: 36415; 80053; 80076; 82550; 80197; 83615; 83735; 84100; 84550; 85025; 85610; 87497

== ENCOUNTER 2024-07-12 13:42 | Outpatient (RCR) | payer BC, SELFPAY | END 2024-07-31 23:59 | disposition home or self-care (01) | LOC: CR 13:42 | PROVIDERS: PCP Nurse Practitioner; Visit Provider Internal Medicine Cardiovascular Disease | DX: I42.1 Obstructive hypertrophic cardiomyopathy (principal); Z94.1 Heart transplant status; Z51.89 Encounter for other specified aftercare | CPT/HCPCS: S9472 ==

== ENCOUNTER 2024-07-12 18:35 | Emergency (ER) | payer BC, SELFPAY ==
[2024-07-12] VITALS (25 sets, daily range): BP systolic 137–174; BP diastolic 50–128; PULSE 94–110; RESP 11–27; TEMP 36.7; O2SAT 91–98
--- NOTE | 2024-07-12 18:55 | W.ED.GENAD ---
Discharge Plan Disposition Patient Disposition: Transfer-Acute Inpatient Care Specific Acute Inpt Facility: Other Condition: Stable Discharge Details Chief Complaint: Orthopedic Clinical Impression: Heart transplant recipient, Closed fracture of left hip Primary Care Provider: Carlita Zimmerman ED Provider: Go Watson Home Meds and New Rx's Prescriptions: No Action acetaminophen 325 mg tablet 650 mg PO Q6H PRN calcium carbonate [Calcium 500] 500 mg calcium (1,250 mg) tablet,chewable 1,250 mg PO BID cholecalciferol (vitamin D3) 25 mcg (1,000 unit) capsule 25 mcg PO DAILY docusate sodium 100 mg capsule 100 mg PO BID PRN metformin 500 mg tablet 500 mg PO BID mycophenolate mofetil 500 mg tablet 1,000 mg PO BID pantoprazole 40 mg tablet,delayed release (DR/EC) 40 mg PO DAILY prednisone 20 mg tablet 20 mg PO DAILY Patient Comments: taking 10 mg daily ramelteon 8 mg tablet 8 mg PO QHS sennosides [senna] 8.6 mg tablet 17.2 mg PO BID PRN voriconazole 50 mg tablet 300 mg PO Q12H Rx Instructions: take before meals sulfamethoxazole-trimethoprim [Bactrim] 400-80 mg tablet 2 tab PO DAILY tacrolimus 0.5 mg capsule 0.5 mg PO BID thiamine HCl (vitamin B1) 100 mg tablet 100 mg PO DAILY Qty: 90 3RF gabapentin 600 mg tablet 600 mg PO QHS Qty: 90 1RF mycophenolate mofetil 250 mg capsule 250 mg PO BID Patient Comments: in addition to 500 mg bid HPI General Date/Time Provider Initiated Documentation: 07/12/24 18:44. Limitations to Documentation: no limitations. Information obtained by: patient and EMS. HPI Narrative: 64y F with PMH of HCM s/p transplant ([facility] Dec 2023) presents for evaluation of acute left hip pain. Patient states that since her transplant she still regaining her mobility and is walking with a cane. She states that she was walking this evening without using her cane and she fell, striking her left hip. She reports severe left hip pain. She was unable to get herself up off the floor. Pain worse with movement of the left hip. Isolated to the left hip. No other injuries during the fall. She states that she did not hit her head or lose consciousness. She is not having headache. Related Data Home Medications ?Medication ?Instructions ?Recorded ?Confirmed acetaminophen 325 mg tablet 650 mg PO Q6H PRN 02/27/24 07/12/24 calcium carbonate (Calcium 500) 1,250 mg PO BID 02/27/24 07/12/24 cholecalciferol (vitamin D3) 25 25 mcg PO DAILY 02/27/24 07/12/24 mcg (1,000 unit) capsule docusate sodium 100 mg capsule 100 mg PO BID PRN 02/27/24 07/12/24 metformin 500 mg tablet 500 mg PO BID 02/27/24 07/12/24 mycophenolate mofetil 500 mg tablet 1,000 mg PO BID 02/27/24 07/12/24 pantoprazole 40 mg tablet,delayed 40 mg PO DAILY 02/27/24 07/12/24 release prednisone 20 mg tablet 20 mg PO DAILY 02/27/24 07/12/24 ramelteon 8 mg tablet 8 mg PO QHS 02/27/24 07/12/24 sennosides 8.6 mg tablet (senna) 17.2 mg PO BID PRN 02/27/24 07/12/24 voriconazole 50 mg tablet 300 mg PO Q12H 02/27/24 07/12/24 sulfamethoxazole 400 2 tab PO DAILY 03/12/24 07/12/24 mg-trimethoprim 80 mg tablet (Bactrim) tacrolimus 0.5 mg capsule, 0.5 mg PO BID 03/12/24 07/12/24 immediate-release thiamine HCl (vitamin B1) 100 mg 100 mg PO DAILY #90 tabs 05/21/24 07/12/24 tablet gabapentin 600 mg tablet 600 mg PO QHS #90 tabs 06/10/24 07/12/24 mycophenolate mofetil 250 mg 250 mg PO BID Anti rejection 07/12/24 07/12/24 capsule Previous Rx's ?Medication ?Instructions ?Recorded thiamine HCl (vitamin B1) 100 mg 100 mg PO DAILY #90 tabs 05/21/24 tablet gabapentin 600 mg tablet 600 mg PO QHS #90 tabs 06/10/24 Allergies Allergy/AdvReac Type Severity Reaction Status Date / Time disopyramide phosphate (From Allergy Severe VT Verified 07/12/24 18:44 Norpace) peach Allergy Intermediate itchy Verified 07/12/24 18:44 ears, throat itchy walnut Allergy Intermediate eyes Verified 07/12/24 18:44 ballooned chlorpheniramine Allergy hay fever Verified 07/12/24 18:44 General Stated Complaint: Orthopedic AIDA: 3 Exam Narrative Exam Narrative: Review of Systems: All systems reviewed & are unremarkable except as noted in HPI and below Well-developed, no acute distress NCAT RRR Unlabored respiratory effort Nondistended abdomen , soft nontender Left hip with tenderness to palpation, shortening and external rotation noted, right hip stable, nontender Course Vital Signs Vital signs: Vital Signs Temperature 36.7 C 07/12/24 18:39 Pulse 95 H 07/12/24 18:39 Respiratory Rate 16 07/12/24 18:39 Blood Pressure 161/74 H 07/12/24 18:39 Pulse Oximetry 96 07/12/24 18:39 Temperature 36.7 C 07/12/24 18:39 Temperature Source Tympanic 07/12/24 18:39 Pulse 95 H 07/12/24 18:39 Respiratory Rate 16 07/12/24 18:39 Blood Pressure 161/74 H 07/12/24 18:39 Pulse Oximetry 96 07/12/24 18:39 Oxygen Delivery Method Room Air 07/12/24 18:39 Oxygen Flow Rate 0 07/12/24 18:39 Pain Level 6 07/12/24 18:39 Medical Decision Making Emergent evaluation of acute left hip injury after a fall. Initial differential includes fracture, contusion. Patient received Tylenol by EMS, but now is requesting narcotics for additional pain control. Given her history of heart transplant fairly recently, anticipate need for transfer to transplant center for further evaluation. Lab work reviewed. There is some mild anemia noted. No leukocytosis. She has a slight increase in her potassium of 5.2 with a concurrent elevation in BUN and creatinine to 1.3. I will give a small fluid bolus as well as insulin and glucose to manage her hyperkalemia. X-ray reviewed and independently interpreted, she does a left hip fracture. Imaging has been sent to [facility] and [facility] and I am reaching out for transfer. Spoke with [facility] and the patient has been excepted ED to ED transfer as a trauma patient. We will send her with a disc of her images as we are not able to electronically share them to this place. Quality:SDOH Health Related Social Needs: No Data to Display [facility] All Active Problems (Updated 07/12/24 @ 20:35 by Go Watson MD) Closed fracture of left hip (Acute) Sensorineural hearing loss, bilateral (Acute 06/14/24) Heart transplant recipient (Acute) Hypertrophic cardiomyopathy (Acute) GERD (gastroesophageal reflux disease) (Chronic) Warfarin anticoagulation (Acute) CKD (chronic kidney disease) stage 3, GFR 30-59 ml/min (Chronic) per most recent Cr (serious worsening this past year, 2022) Iron deficiency (Acute) Iron Sat: 11%, but w/o anemia (actually high/normal RBC, HGB) .. Pt reports CARD recommended iron infusion.. [ ] Venofer per PCP Hiatal hernia (Chronic) per CTA, per pt report .. consider EGD? Electrolyte imbalance risk (Acute) K started last year, post stroke, per pt report .. Daily K; Inc Torsemide .. per [facility] Card, but w/o ongoig labs has me concerned . ordeirng BMP/Magn and d/w PCP. Lung nodules (Acute) per CTA, per pt report ... Anticoagulation goal of INR 2 to 3 (Acute) Thrombus in heart chamber (Acute) left atria per [facility] nurs report ..[ ] TBD Heart transplant candidate (Acute) Preop testing (Acute) [facility] requesting Warfarin re-start 2' thrombus (01/10/23) + heart-transplant surgery planned ... Allergy to penicillin (Acute) 01/04/23 Saw Allergy at Abnormal LFTs (Acute) 09/23/22 GI Hepatic fibrosis (Acute ~09/2022) 09/23/22 GI 10/28/22 F/U visit GI Chronic heart failure with preserved ejection fraction (Acute) 05/23/22 Cardiology, Dr Palomo Receptive aphasia (Acute) CVA (cerebral vascular accident) (Chronic) Aphasia (Acute) History of HPV infection (Acute) Reactive atypia 06/22 + high risk HPV, colpo negative. 12/01/2022-Pap smear with HPV testing 01/2023. ASCUS Pap smear, negative HPV 02/07/2023-colposcopy with ECC-. 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) Abnormal Pap smear of cervix (Acute) Allergic rhinitis (Chronic 01/28/13) Zyrtec plus prn Flonase Atrial fibrillation (Chronic 05/10/11) 06/12 pul vein isolation/ablation [facility]; repeat [facility] 08/18/1208/13 LASHA EF 65% Chronic atrial flutter (Chronic 07/30/14) 06/12 pul vein isolation/ablation [facility]; repeat [facility] 08/18/1208/13 LASHA EF 65% Hot flashes (Chronic 07/22/13) RX Gabapentin long term care social worker current use of anticoagulants with INR goal of 2.0-3.0 (Chronic 07/11/12) [facility] requesting Warfarin re-start 2' thrombus (01/10/23) + heart-transplant surgery planned ... Changed to APIXABAN .. Home monitoring Primary cardiomyopathy (Chronic 05/10/11) Hereditary; AICD; hx V Fib arrest; AVJ ablation (05/2013); successful' ICD; ECHO [facility] 12/2014 EF 58% diastolic CHF Dr Russo Cardiology [facility], Echocardiogram 07/26/18 [facility], 05/04/20 echo at [facility] 05/21/20 F/U [facility] Cardiolodgy, 04/06/21 Outpt Stress Test done Dysuria (Acute) Routine general medical examination at a health care facility (Acute) Medical History COVID (~08/18/21) History of abnormal cervical Papanicolaou smear Normal colonoscopy (~06/2019) ICD (implantable cardioverter-defibrillator) in place Hx of cardiac arrest 2005 Surgical History Hx of prior ablation treatment Recurrent major depression in partial remission (08/01/12) [facility] Recurrent major depression in partial remission (01/01/11) [facility] pt. denies this Family History Father , [place] Alcohol use disorder Heart disease Sister Afib Heart disease Uncle Afib Heart disease Social History Smoking/Tobacco Use Status: Former Tobacco Use Quit Date: 04/03/89 Tobacco: How many years used: 3 Quit status: quit date established Smoking risk assessment performed?: Yes Alcohol Intake: never Drug use: Never Substance use type: does not use Adopted: No Caregiver/Support person: No Foster care: No Household members: none Housing: house Number of Children: 2 Communication Needs: Corrective Lenses Education Level: high school Do you need help understanding health information?: Rarely 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 [employer] Pets and animals: Yes Pets and animals: dog(s) Sexually active: No Do you think of yourself as: straight/heterosexual Current gender identity: female What is your relationship status?: How often do you talk on the phone with friends or family?: three or more times per week How often do you get together with friends or relatives?: three or more times per week Do you belong to any clubs or organized social groups?: yes Panel score (0-1 are the most socially isolated patients): 2 What type of physical activity do you participate in: walking Duration: 15-30 minutes/day Frequency: 5-6 times per week Shima/Synagogue: Religion Special shima needs: No Seatbelt use: always Helmet use: Yes Drive intox or ride w/intox commercial relief driver: No Carbon monox detector in home: Yes Do you feel safe at home: Yes Do you feel safe in your relationship?: Yes Additional Social history: not in current relationship
[2024-07-12] MEDS: MORPHine 4 MG/ML SYR IVP ×2 (19:09→21:07)
[2024-07-12] MEDS: Ondansetron 4 MG/2 ML VIAL IVP (19:10)
[2024-07-12 19:16] LABS: Absolute Basophil Count 0.02 10^3/uL (0.0-0.2); Absolute Eosinophil Count 0.04 10^3/uL (0.0-0.7); Absolute Lymphocyte Count 0.82 10^3/uL (1.2-3.4); Absolute Monocyte Count 0.95 10^3/uL (0.1-0.8); Absolute Neutrophil Count 5.38 10^3/uL (1.2-6.7); Basophils % 0.3 %; Eosinophils % 0.5 %; HCT 29.8 % (36.0-46.0); HGB 9.3 g/dL (11.2-15.7); Immature Grans % 1.4 %; Lymphocytes % 11.2 %; MCH 31.4 pg (27.0-33.0); MCHC 31.2 % (32.0-36.0); MCV 101 fL (80-95); MPV 9.6 fL (8.0-11.0); Neutrophils % 73.6 %; Platelet Count 343 10^3/uL (130-400); RBC 2.96 10^6/uL (3.93-5.22); RDW 13.2 % (11.7-14.6); RDW-SD 49.1 fL; WBC 7.31 10^3/uL (4.4-10.8)
[2024-07-12 19:29] LABS: Prothrombin Time 10.4 sec (9.1-11.1)
[2024-07-12 19:33] LABS: ALT 19 U/L (14-59); AST 18 U/L (15-37); Albumin 3.8 g/dL (3.4-5.0); Alkaline Phosphatase 313 U/L (46-116); BUN 22 mg/dL (7-18); Bilirubin, Total 0.3 mg/dL (0.2-1.0); CREATININE 1.3 mg/dL (0.55-1.02); Calcium 8.9 mg/dL (8.5-10.1); Chloride 106 mmol/L (98-107); Estimated GFR 46.49 (mL/min/1.73m2); Glucose 113 mg/dL (74-106); Potassium 5.2 mmol/L (3.5-5.1); Sodium 138 mmol/L (136-145); Total Protein 6.8 g/dL (6.4-8.2)
--- NOTE | 2024-07-12 20:05 | DI.RAD_ITS ---
Exam(s) XR HIP LT COMPLETE AP PELVIS EXAM: XR HIP LT COMPLETE AP PELVIS CLINICAL HISTORY: LEFT HIP PAIN. TECHNIQUE: 2D digital imaging was performed. Two views. COMPARISON: No exams were available for comparison FINDINGS: BONES: Fracture of the left femur with superior displacement of the femoral shaft with respect to the head. No additional fractures are identified. No bony destructive lesion is seen. JOINTS: No dislocation present. The SI joints and pubic symphysis are intact. No significant degenera tive changes. SOFT TISSUE: Large amount of stool noted in the rectum. IMPRESSION: Subcapital fracture of the left femur. DATA REPOSITORY: RADIATION DOSE DELIVERED:
--- NOTE | 2024-07-12 20:25 | DI.VRAD_ITS ---
PROCEDURE INFORMATION: Exam: XR Left Hip Exam date and time: 07/12/2024 7:55 PM Age: 64 years old Clinical indication: Injury or trauma; Blunt trauma (contusions or hematomas); Injury date: 07/12/24; Left hip pain, fall TECHNIQUE: Imaging protocol: Radiologic exam of the left hip. Views: 2 or 3 views hip with pelvis when performed. COMPARISON: No relevant prior studies available. FINDINGS: Bones/joints: Subcapital fracture of the left femur. No evidence for dislocation. Soft tissues: Unremarkable. Gastrointestinal tract: Fecal impaction/constipation. IMPRESSION: 1. Subcapital fracture of the left femur. 2. Fecal impaction/constipation. Dictated and Authenticated by: Timmy Santoyo MD. Orderin Walter Parrish MD
[2024-07-12] MEDS: Dextrose 50%-Water 25 GM/50 ML SYR IVP (20:28)
[2024-07-12] MEDS: Insulin REGULAR-Human 100 UNITS/ML UNIT IV (20:29)
[2024-07-12] MEDS: Pregabalin 50 MG CAP PO (20:42)
[2024-07-12] MEDS: Normal Saline 500 ML IV (20:42)
--- NOTE | 2024-07-12 20:54 | NUR.NOTE ---
1 amp of Dextrose 25 grams and 5 units of regular insulin given for KCL of 5.2. Lyrica given for pain management in addition to morphine. pt to be transfered to [facility], report to be given on departure.
--- NOTE | 2024-07-12 22:28 | NUR.NOTE ---
Attempted to call 3 times [phone], [phone] and [phone] with nurse to nurse report with no answer. will continue to reach out to [facility] ED.
--- NOTE | 2024-07-12 23:17 | NUR.NOTE ---
fourth attempt calling report to [facility] ED, no answer will continue to reach out.
--- NOTE | 2024-07-12 23:27 | NUR.NOTE ---
report called to Evelin HERNÁNDEZ at [facility]. all questions answered.
== END 2024-07-12 23:19 | disposition short-term general hospital (02) ==
PROVIDERS: Emergency Provider Emergency Medicine; PCP Nurse Practitioner
DX: S72.002A Fracture of unspecified part of neck of left femur, initial encounter for closed fracture (principal); W19.XXXA Unspecified fall, initial encounter; Z94.1 Heart transplant status
CPT/HCPCS: 36415; 80053; 96361; 96374; 96375; 96376; 99285; 73502; 85025; 85610; J1815; J2270; J2405

== ENCOUNTER 2024-07-26 11:59 | Outpatient (REF) | payer BC, SELFPAY ==
[2024-07-26 10:58] LABS: Abs Immature Grans 0.15 10^3/uL (0.0-0.06); Absolute Basophil Count 0.07 10^3/uL (0.0-0.2); Absolute Eosinophil Count 0.38 10^3/uL (0.0-0.7); Absolute Lymphocyte Count 0.68 10^3/uL (1.2-3.4); Absolute Monocyte Count 0.34 10^3/uL (0.1-0.8); Absolute Neutrophil Count 6.81 10^3/uL (1.2-6.7); Basophils % 0.8 %; Eosinophils % 4.5 %; HCT 33.6 % (36.0-46.0); HGB 10.4 g/dL (11.2-15.7); Immature Grans % 1.8 %; Lymphocytes % 8.1 %; MCH 30.8 pg (27.0-33.0); MCV 99 fL (80-95); Neutrophils % 80.8 %; Platelet Count 509 10^3/uL (130-400); RBC 3.38 10^6/uL (3.93-5.22); RDW-SD 56.7 fL; WBC 8.43 10^3/uL (4.4-10.8)
[2024-07-26 11:13] LABS: ALT 27 U/L (14-59); AST 42 U/L (15-37); Albumin 3.1 g/dL (3.4-5.0); Alkaline Phosphatase 334 U/L (46-116); Anion Gap 7.5 mmol/L (3-11); BUN 15 mg/dL (7-18); Bilirubin, Total 0.3 mg/dL (0.2-1.0); CO2 25.5 mmol/L (21.0-32.0); CREATININE 0.7 mg/dL (0.55-1.02); Chloride 107 mmol/L (98-107); Estimated GFR 97.72 (mL/min/1.73m2); Glucose 127 mg/dL (74-106); Potassium 5.2 mmol/L (3.5-5.1); Sodium 140 mmol/L (136-145); Total Protein 7.6 g/dL (6.4-8.2)
[2024-07-29 23:53] LABS: CMV DNA Detect/Quant, P 89 IU/mL (Undetected)
== END 2024-07-26 12:00 | disposition home or self-care (01) ==
LOC: LBN 11:59
PROVIDERS: PCP Nurse Practitioner; Visit Provider Internal Medicine Cardiovascular Disease
DX: I50.9 Heart failure, unspecified (principal); Z94.1 Heart transplant status; I34.0 Nonrheumatic mitral (valve) insufficiency; K74.00 Hepatic fibrosis, unspecified
CPT/HCPCS: 80053; 80197; 85025; 87497

== ENCOUNTER 2024-08-06 16:26 | Outpatient (REF) | payer BC, SELFPAY ==
[2024-08-06 15:10] LABS: Absolute Basophil Count 0.05 10^3/uL (0.0-0.2); Absolute Eosinophil Count 0.09 10^3/uL (0.0-0.7); Absolute Lymphocyte Count 0.98 10^3/uL (1.2-3.4); Absolute Monocyte Count 0.08 10^3/uL (0.1-0.8); Absolute Neutrophil Count 3.64 10^3/uL (1.2-6.7); Eosinophils % 1.8 %; HCT 35.6 % (36.0-46.0); HGB 11.1 g/dL (11.2-15.7); Lymphocytes % 19.8 %; MCH 31.2 pg (27.0-33.0); MCHC 31.2 % (32.0-36.0); MCV 100 fL (80-95); MPV 10.7 fL (8.0-11.0); Monocytes % 1.6 %; Neutrophils % 73.8 %; Platelet Count 401 10^3/uL (130-400); RBC 3.56 10^6/uL (3.93-5.22); RDW 17.2 % (11.7-14.6); RDW-SD 63.2 fL; WBC 4.94 10^3/uL (4.4-10.8)
[2024-08-06 15:47] LABS: ALT 37 U/L (14-59); AST 34 U/L (15-37); Alkaline Phosphatase 305 U/L (46-116); Anion Gap 10.1 mmol/L (3-11); BUN 25 mg/dL (7-18); Bilirubin, Total 0.4 mg/dL (0.2-1.0); CO2 23.9 mmol/L (21.0-32.0); CREATININE 0.8 mg/dL (0.55-1.02); Calcium 8.9 mg/dL (8.5-10.1); Chloride 106 mmol/L (98-107); Estimated GFR 83.26 (mL/min/1.73m2); Glucose 123 mg/dL (74-106); Potassium 4.9 mmol/L (3.5-5.1); Sodium 140 mmol/L (136-145); Total Protein 8.1 g/dL (6.4-8.2)
[2024-08-07 13:55] LABS: Tacrolimus 9.3 ng/mL (See Note)
[2024-08-08 15:41] LABS: CMV DNA Detect/Quant, P Undetected IU/mL (Undetected)
== END 2024-08-06 16:27 | disposition home or self-care (01) ==
LOC: LBN 16:26
PROVIDERS: PCP Nurse Practitioner; Visit Provider Internal Medicine Cardiovascular Disease
DX: I50.9 Heart failure, unspecified (principal); Z94.1 Heart transplant status; I34.0 Nonrheumatic mitral (valve) insufficiency
CPT/HCPCS: 80053; 80197; 85025; 87497

== ENCOUNTER 2024-08-12 16:00 | Outpatient (REF) | payer BC, SELFPAY ==
[2024-08-12 13:14] LABS: Abs Immature Grans 0.11 10^3/uL (0.0-0.06); Absolute Basophil Count 0.04 10^3/uL (0.0-0.2); Absolute Eosinophil Count 0.06 10^3/uL (0.0-0.7); Absolute Neutrophil Count 1.78 10^3/uL (1.2-6.7); Basophils % 1.3 %; HCT 31.1 % (36.0-46.0); HGB 9.7 g/dL (11.2-15.7); Immature Grans % 3.7 %; Lymphocytes % 30.1 %; MCH 31.6 pg (27.0-33.0); MCHC 31.2 % (32.0-36.0); MCV 101 fL (80-95); MPV 10.4 fL (8.0-11.0); Monocytes % 3.3 %; Neutrophils % 59.6 %; Platelet Count 336 10^3/uL (130-400); RBC 3.07 10^6/uL (3.93-5.22); RDW 18.1 % (11.7-14.6); RDW-SD 66.2 fL; WBC 2.99 10^3/uL (4.4-10.8)
[2024-08-12 13:48] LABS: ALT 35 U/L (14-59); AST 26 U/L (15-37); Albumin 3.7 g/dL (3.4-5.0); Alkaline Phosphatase 229 U/L (46-116); Anion Gap 9.3 mmol/L (3-11); BUN 16 mg/dL (7-18); Bilirubin, Total 0.3 mg/dL (0.2-1.0); CO2 22.7 mmol/L (21.0-32.0); CREATININE 0.8 mg/dL (0.55-1.02); Calcium 8.8 mg/dL (8.5-10.1); Chloride 108 mmol/L (98-107); Estimated GFR 83.26 (mL/min/1.73m2); Glucose 132 mg/dL (74-106); Potassium 4.4 mmol/L (3.5-5.1); Sodium 140 mmol/L (136-145); Total Protein 7.1 g/dL (6.4-8.2)
== END 2024-08-12 16:01 | disposition home or self-care (01) ==
LOC: LBN 16:00
PROVIDERS: PCP Nurse Practitioner; Visit Provider Internal Medicine Cardiovascular Disease
DX: I50.9 Heart failure, unspecified (principal); Z94.1 Heart transplant status; I34.0 Nonrheumatic mitral (valve) insufficiency
CPT/HCPCS: 80053; 80197; 85025

== ENCOUNTER 2024-08-19 15:19 | Outpatient (REF) | payer BC, SELFPAY ==
[2024-08-19 13:29] LABS: Abs Immature Grans 0.08 10^3/uL (0.0-0.06); Absolute Basophil Count 0.03 10^3/uL (0.0-0.2); Absolute Eosinophil Count 0.06 10^3/uL (0.0-0.7); Absolute Lymphocyte Count 1.01 10^3/uL (1.2-3.4); Absolute Monocyte Count 0.45 10^3/uL (0.1-0.8); Absolute Neutrophil Count 1.68 10^3/uL (1.2-6.7); Basophils % 0.9 %; Eosinophils % 1.8 %; HGB 10.3 g/dL (11.2-15.7); Immature Grans % 2.4 %; Lymphocytes % 30.5 %; MCH 32.1 pg (27.0-33.0); MCHC 31.2 % (32.0-36.0); MCV 103 fL (80-95); MPV 10.2 fL (8.0-11.0); Monocytes % 13.6 %; Neutrophils % 50.8 %; Platelet Count 366 10^3/uL (130-400); RBC 3.21 10^6/uL (3.93-5.22); RDW-SD 68.1 fL; WBC 3.31 10^3/uL (4.4-10.8)
[2024-08-19 13:43] LABS: ALT 32 U/L (14-59); AST 21 U/L (15-37); Albumin 3.7 g/dL (3.4-5.0); Alkaline Phosphatase 216 U/L (46-116); Anion Gap 11.3 mmol/L (3-11); BUN 19 mg/dL (7-18); Bilirubin, Total 0.2 mg/dL (0.2-1.0); CO2 23.7 mmol/L (21.0-32.0); Calcium 8.9 mg/dL (8.5-10.1); Chloride 106 mmol/L (98-107); Glucose 98 mg/dL (74-106); Potassium 5.1 mmol/L (3.5-5.1); Sodium 141 mmol/L (136-145); Total Protein 6.8 g/dL (6.4-8.2)
[2024-08-21 21:17] LABS: CMV DNA Detect/Quant, P Undetected IU/mL (Undetected)
== END 2024-08-19 15:20 | disposition home or self-care (01) ==
LOC: LBN 15:19
PROVIDERS: PCP Nurse Practitioner; Visit Provider Internal Medicine Cardiovascular Disease
DX: I50.9 Heart failure, unspecified (principal); Z94.1 Heart transplant status; I34.0 Nonrheumatic mitral (valve) insufficiency; T86.23 Heart transplant infection
CPT/HCPCS: 80053; 80197; 85025; 87497

== ENCOUNTER 2024-08-26 11:47 | Outpatient (REF) | payer BC, SELFPAY ==
[2024-08-26 11:58] LABS: Abs Immature Grans 0.23 10^3/uL (0.0-0.06); HGB 9.7 g/dL (11.2-15.7); MCH 31.9 pg (27.0-33.0); MCHC 31.3 % (32.0-36.0); MCV 102 fL (80-95); MPV 10.2 fL (8.0-11.0); Platelet Count 330 10^3/uL (130-400); RBC 3.04 10^6/uL (3.93-5.22); RDW 17.6 % (11.7-14.6); RDW-SD 65.4 fL; WBC 3.39 10^3/uL (4.4-10.8)
[2024-08-26 12:10] LABS: ALT 37 U/L (14-59); AST 30 U/L (15-37); Albumin 3.7 g/dL (3.4-5.0); Alkaline Phosphatase 216 U/L (46-116); BUN 22 mg/dL (7-18); Bilirubin, Total 0.2 mg/dL (0.2-1.0); CREATININE 0.8 mg/dL (0.55-1.02); Chloride 107 mmol/L (98-107); Estimated GFR 83.26 (mL/min/1.73m2); Glucose 108 mg/dL (74-106); Potassium 4.9 mmol/L (3.5-5.1); Sodium 141 mmol/L (136-145); Total Protein 6.6 g/dL (6.4-8.2)
[2024-08-26 12:50] LABS: Absolute Lymphocyte Count 1.22 10^3/uL (1.2-3.4); Absolute Monocyte Count 0.31 10^3/uL (0.1-0.8); Absolute Neutrophil Count 1.66 10^3/uL (1.2-6.7); Diff Comment Manual Differential; Metamyelocytes % 2; Myelocytes % 1; RBC Morphology Normal
[2024-08-28 11:29] LABS: Tacrolimus 10.3 ng/mL (See Note)
[2024-08-29 16:42] LABS: CMV DNA Detect/Quant, P Undetected IU/mL (Undetected)
== END 2024-08-26 11:48 | disposition home or self-care (01) ==
LOC: LBN 11:47
PROVIDERS: PCP Nurse Practitioner; Visit Provider Internal Medicine Cardiovascular Disease
DX: T86.23 Heart transplant infection (principal)
CPT/HCPCS: 80053; 80197; 85025; 87497

== ENCOUNTER 2024-09-09 02:35 | Outpatient (CLI) | payer BC, SELFPAY ==
[2024-09-09 10:13] LABS: HCT 33.1 % (36.0-46.0); HGB 10.2 g/dL (11.2-15.7); MCH 32.1 pg (27.0-33.0); MCHC 30.8 % (32.0-36.0); MCV 104 fL (80-95); Platelet Count 254 10^3/uL (130-400); RBC 3.18 10^6/uL (3.93-5.22); RDW 16.3 % (11.7-14.6); RDW-SD 63.2 fL; WBC 4.35 10^3/uL (4.4-10.8)
[2024-09-09 10:27] LABS: Absolute Basophil Count 0.09 10^3/uL (0.0-0.2); Absolute Eosinophil Count 0.04 10^3/uL (0.0-0.7); Absolute Lymphocyte Count 1.35 10^3/uL (1.2-3.4); Absolute Monocyte Count 0.61 10^3/uL (0.1-0.8); Absolute Neutrophil Count 2.22 10^3/uL (1.2-6.7); Atypical Lymphocytes % 3 %; Bands % 1 %
[2024-09-09 10:28] LABS: Diff Comment Manual Differential; Other Cells % 1; RBC Morphology Normal
[2024-09-09 11:27] LABS: ALT 52 U/L (14-59); AST 39 U/L (15-37); Albumin 3.6 g/dL (3.4-5.0); Alkaline Phosphatase 235 U/L (46-116); Anion Gap 8.2 mmol/L (3-11); BUN 22 mg/dL (7-18); Bilirubin, Direct 0.1 mg/dL (0.0-0.2); Bilirubin, Total 0.2 mg/dL (0.2-1.0); CO2 24.8 mmol/L (21.0-32.0); Calcium 8.7 mg/dL (8.5-10.1); Chloride 107 mmol/L (98-107); Glucose 113 mg/dL (74-106); Magnesium 1.7 mg/dL (1.8-2.4); PHOSPHORUS 3.6 mg/dL (2.6-4.7); Potassium 4.4 mmol/L (3.5-5.1); Sodium 140 mmol/L (136-145); Total Protein 7.9 g/dL (6.4-8.2)
[2024-09-11 00:07] LABS: CMV DNA Detect/Quant, P Undetected IU/mL (Undetected)
== END 2024-09-09 02:36 | disposition home or self-care (01) ==
PROVIDERS: PCP Nurse Practitioner; Visit Provider Internal Medicine Advanced Heart Failure and Transplant Cardiology
DX: Z94.1 Heart transplant status (principal)
CPT/HCPCS: 36415; 80053; 80076; 80197; 83735; 84100; 85025; 87497

== ENCOUNTER 2024-09-19 13:10 | Outpatient (REF) | payer BC, SELFPAY ==
--- NOTE | 2024-09-19 13:02 | PAPFT_PTH ---
PATIENT: Nneka Polanco LOC: [facility] U#:[id number] AGE/SX: 64/F ROOM: RE09/19/[address]: Genie Sánchez DO : 1960 BED: DIS: 09/19/2024 SPEC #: [id number] RECD: 09/19/24 17:31 STATUS: BHANUAltaf REQ #: [id number] GUERO: 09/19/24 13:[address]: Genie Sánchez DEPT: [facility] Cytology RECD BY: Jessie Whitaker ENTERED: 09/19/24 17:32 SP TYPE: PAPFT OTHR DR: Carlita Zimmerman APRN Tissues: 1 - CX/ENDOCX FOR PAP SMEARS Procedures: PAP THIN PREP/UVM Screening HPV DNA PROBE Comments: [id number] (HPV 16 & 18/45)
== END 2024-09-19 13:11 | disposition home or self-care (01) ==
LOC: LBN 13:10
PROVIDERS: PCP Nurse Practitioner; Visit Provider Obstetrics & Gynecology
DX: Z12.4 Encounter for screening for malignant neoplasm of cervix (principal)
CPT/HCPCS: 88142; 87624

== ENCOUNTER 2024-09-23 03:07 | Outpatient (CLI) | payer BC, SELFPAY ==
[2024-09-23 08:10] LABS: Absolute Basophil Count 0.05 10^3/uL (0.0-0.2); Absolute Lymphocyte Count 1.43 10^3/uL (1.2-3.4); Absolute Neutrophil Count 2.91 10^3/uL (1.2-6.7); Basophils % 0.9 %; Eosinophils % 3.6 %; HCT 31.7 % (36.0-46.0); HGB 9.9 g/dL (11.2-15.7); Immature Grans % 3.6 %; Lymphocytes % 25.6 %; MCH 32.6 pg (27.0-33.0); MCHC 31.2 % (32.0-36.0); MCV 104 fL (80-95); Monocytes % 14.3 %; Platelet Count 264 10^3/uL (130-400); RBC 3.04 10^6/uL (3.93-5.22); RDW 15.3 % (11.7-14.6); RDW-SD 58.1 fL; WBC 5.59 10^3/uL (4.4-10.8)
[2024-09-23 08:20] LABS: ALT 40 U/L (14-59); AST 31 U/L (15-37); Albumin 3.6 g/dL (3.4-5.0); Alkaline Phosphatase 261 U/L (46-116); Anion Gap 11.6 mmol/L (3-11); BUN 25 mg/dL (7-18); Bilirubin, Direct 0.1 mg/dL (0.0-0.2); Bilirubin, Total 0.2 mg/dL (0.2-1.0); CO2 23.4 mmol/L (21.0-32.0); CREATININE 0.9 mg/dL (0.55-1.02); Calcium 8.9 mg/dL (8.5-10.1); Chloride 107 mmol/L (98-107); Estimated GFR 72.28 (mL/min/1.73m2); Glucose 113 mg/dL (74-106); Magnesium 1.8 mg/dL (1.8-2.4); Potassium 4.3 mmol/L (3.5-5.1); Sodium 142 mmol/L (136-145); Total Protein 7.4 g/dL (6.4-8.2)
[2024-09-24 12:14] LABS: Tacrolimus 11.7 ng/mL (See Note)
[2024-09-25 15:29] LABS: CMV DNA Detect/Quant, P Undetected IU/mL (Undetected)
== END 2024-09-23 03:08 | disposition home or self-care (01) ==
PROVIDERS: PCP Nurse Practitioner; Visit Provider Internal Medicine Advanced Heart Failure and Transplant Cardiology
DX: Z94.1 Heart transplant status (principal)
CPT/HCPCS: 36415; 80053; 80076; 80197; 83735; 84100; 85025; 87497

== ENCOUNTER 2024-09-30 01:51 | Outpatient (RCR) | payer BC, SELFPAY ==
[2024-09-02] VITALS (9 sets, daily range): BP systolic 99–117; BP diastolic 61–78; PULSE 77–89; RESP 18–20; TEMP 36.3–36.5; O2SAT 98–99
[2024-09-02] MEDS: Normal Saline Flush 10 ML SYR IVP (09:08)
[2024-09-02] MEDS: Acetaminophen 325 MG TAB (09:08)
[2024-09-02] MEDS: Hydrocortisone SOD SUC. 100 MG VIAL (09:08)
[2024-09-02] MEDS: diphenhydrAMINE 50 MG/ML VIAL (09:08)
[2024-09-02 09:30] LABS: Abs Immature Grans 0.33 10^3/uL (0.0-0.06); HCT 34.2 % (36.0-46.0); HGB 10.6 g/dL (11.2-15.7); MCH 32.2 pg (27.0-33.0); MCV 104 fL (80-95); MPV 9.8 fL (8.0-11.0); Platelet Count 273 10^3/uL (130-400); RBC 3.29 10^6/uL (3.93-5.22); RDW 17.1 % (11.7-14.6); RDW-SD 65.6 fL; WBC 4.95 10^3/uL (4.4-10.8)
[2024-09-02 09:58] LABS: ALT 37 U/L (14-59); AST 27 U/L (15-37); Alkaline Phosphatase 227 U/L (46-116); Anion Gap 9.4 mmol/L (3-11); BUN 21 mg/dL (7-18); Bilirubin, Total 0.2 mg/dL (0.2-1.0); CO2 24.6 mmol/L (21.0-32.0); Chloride 108 mmol/L (98-107); Glucose 105 mg/dL (74-106); Potassium 4.7 mmol/L (3.5-5.1); Sodium 142 mmol/L (136-145); Total Protein 7.4 g/dL (6.4-8.2)
[2024-09-02 10:01] LABS: Absolute Lymphocyte Count 1.09 10^3/uL (1.2-3.4); Absolute Monocyte Count 0.89 10^3/uL (0.1-0.8); Absolute Neutrophil Count 2.82 10^3/uL (1.2-6.7); Bands % 4 %; Diff Comment Manual Differential; Metamyelocytes % 1; RBC Morphology Normal
[2024-09-03 10:12] LABS: Tacrolimus 9.2 ng/mL (See Note)
[2024-09-04 14:24] LABS: CMV DNA Detect/Quant, P Undetected IU/mL (Undetected)
[2024-09-30] VITALS (7 sets, daily range): BP systolic 109–124; BP diastolic 63–72; PULSE 69–77; RESP 17–18; TEMP 36.4–36.6; O2SAT 98–100
[2024-09-30 09:18] LABS: HCT 33.9 % (36.0-46.0); HGB 10.7 g/dL (11.2-15.7); MCH 33.2 pg (27.0-33.0); MCHC 31.6 % (32.0-36.0); MCV 105 fL (80-95); Platelet Count 311 10^3/uL (130-400); RBC 3.22 10^6/uL (3.93-5.22); RDW 14.9 % (11.7-14.6); RDW-SD 58.3 fL; WBC 5.98 10^3/uL (4.4-10.8)
[2024-09-30] MEDS: Acetaminophen 325 MG TAB (09:27)
[2024-09-30] MEDS: Normal Saline Flush 10 ML SYR IVP (09:28)
[2024-09-30] MEDS: Hydrocortisone SOD SUC. 100 MG VIAL (09:28)
[2024-09-30] MEDS: diphenhydrAMINE 50 MG/ML VIAL (09:28)
[2024-09-30 09:29] LABS: Absolute Basophil Count 0.06 10^3/uL (0.0-0.2); Absolute Eosinophil Count 0.24 10^3/uL (0.0-0.7); Absolute Lymphocyte Count 1.67 10^3/uL (1.2-3.4); Absolute Monocyte Count 0.66 10^3/uL (0.1-0.8); Absolute Neutrophil Count 3.35 10^3/uL (1.2-6.7); Diff Comment Manual Differential; RBC Morphology Normal
[2024-09-30 09:45] LABS: ALT 54 U/L (14-59); AST 38 U/L (15-37); Albumin 4.1 g/dL (3.4-5.0); Alkaline Phosphatase 258 U/L (46-116); Anion Gap 11.7 mmol/L (3-11); BUN 23 mg/dL (7-18); Bilirubin, Total 0.3 mg/dL (0.2-1.0); CO2 23.3 mmol/L (21.0-32.0); Calcium 8.9 mg/dL (8.5-10.1); Chloride 106 mmol/L (98-107); Glucose 90 mg/dL (74-106); Magnesium 1.8 mg/dL (1.8-2.4); Potassium 4.2 mmol/L (3.5-5.1); Sodium 141 mmol/L (136-145); Total Protein 7.8 g/dL (6.4-8.2)
[2024-10-01 11:10] LABS: Tacrolimus 11.9 ng/mL (See Note)
== END 2024-09-30 23:59 | disposition home or self-care (01) ==
LOC: INF 01:51
PROVIDERS: Internal Medicine Advanced Heart Failure and Transplant Cardiology; Internal Medicine Cardiovascular Disease; PCP Nurse Practitioner; Visit Provider Family Medicine
DX: Z94.1 Heart transplant status (principal); T86.21 Heart transplant rejection
CPT/HCPCS: 36415; 80053; 96365; 96366; 96374; 96375; 80197; 83735; 84100; 85025; 87497; J1200; J1569; J1720

== ENCOUNTER 2024-10-07 03:32 | Outpatient (CLI) | payer BC, SELFPAY ==
[2024-10-07 09:18] LABS: Abs Immature Grans 0.20 10^3/uL (0.0-0.06); HCT 31.7 % (36.0-46.0); HGB 10.2 g/dL (11.2-15.7); Immature Grans % 4.3 %; MCH 33.2 pg (27.0-33.0); MCHC 32.2 % (32.0-36.0); MCV 103 fL (80-95); MPV 10.1 fL (8.0-11.0); Platelet Count 282 10^3/uL (130-400); RBC 3.07 10^6/uL (3.93-5.22); RDW 14.5 % (11.7-14.6); RDW-SD 55.2 fL; WBC 4.70 10^3/uL (4.4-10.8)
[2024-10-07 09:43] LABS: ALT 47 U/L (14-59); AST 39 U/L (15-37); Albumin 3.7 g/dL (3.4-5.0); Alkaline Phosphatase 224 U/L (46-116); Anion Gap 11.1 mmol/L (3-11); BUN 27 mg/dL (7-18); Bilirubin, Direct 0.1 mg/dL (0.0-0.2); Bilirubin, Total 0.1 mg/dL (0.2-1.0); CO2 22.9 mmol/L (21.0-32.0); Calcium 8.8 mg/dL (8.5-10.1); Chloride 107 mmol/L (98-107); Estimated GFR 63.70 (mL/min/1.73m2); Glucose 101 mg/dL (74-106); Magnesium 1.9 mg/dL (1.8-2.4); Potassium 4.5 mmol/L (3.5-5.1); Sodium 141 mmol/L (136-145); Total Protein 8.3 g/dL (6.4-8.2)
[2024-10-09 16:03] LABS: CMV DNA Detect/Quant, P <35 IU/mL (Undetected)
== END 2024-10-07 03:33 | disposition home or self-care (01) ==
PROVIDERS: PCP Nurse Practitioner; Visit Provider Internal Medicine Advanced Heart Failure and Transplant Cardiology
DX: Z94.1 Heart transplant status (principal)
CPT/HCPCS: 36415; 80053; 80076; 80197; 83735; 84100; 85025; 87497

== ENCOUNTER 2024-10-14 03:09 | Outpatient (CLI) | payer BC, SELFPAY ==
[2024-10-14 10:11] LABS: Abs Immature Grans 0.21 10^3/uL (0.0-0.06); HCT 32.2 % (36.0-46.0); HGB 10.2 g/dL (11.2-15.7); Immature Grans % 4.8 %; MCH 32.9 pg (27.0-33.0); MCHC 31.7 % (32.0-36.0); MCV 104 fL (80-95); MPV 10.2 fL (8.0-11.0); Platelet Count 246 10^3/uL (130-400); RBC 3.10 10^6/uL (3.93-5.22); RDW 14.0 % (11.7-14.6); RDW-SD 53.3 fL; WBC 4.42 10^3/uL (4.4-10.8)
[2024-10-14 11:01] LABS: ALT 67 U/L (14-59); AST 47 U/L (15-37); Albumin 3.8 g/dL (3.4-5.0); Alkaline Phosphatase 238 U/L (46-116); Bilirubin, Direct 0.1 mg/dL (0.0-0.2); Bilirubin, Total 0.2 mg/dL (0.2-1.0); Magnesium 1.9 mg/dL (1.8-2.4); Total Protein 7.8 g/dL (6.4-8.2)
[2024-10-14 11:02] LABS: ALT 69 U/L (14-59); AST 49 U/L (15-37); Albumin 3.8 g/dL (3.4-5.0); Alkaline Phosphatase 236 U/L (46-116); Anion Gap 8.9 mmol/L (3-11); BUN 27 mg/dL (7-18); Bilirubin, Total 0.3 mg/dL (0.2-1.0); CO2 24.1 mmol/L (21.0-32.0); Calcium 8.8 mg/dL (8.5-10.1); Chloride 107 mmol/L (98-107); Estimated GFR 72.28 (mL/min/1.73m2); Glucose 122 mg/dL (74-106); Potassium 4.6 mmol/L (3.5-5.1); Sodium 140 mmol/L (136-145); Total Protein 7.8 g/dL (6.4-8.2)
[2024-10-14 11:23] LABS: TSH 3.07 uIU/mL (0.36-3.74); Vitamin D 25 Total 47 ng/mL (30-100)
== END 2024-10-14 03:10 | disposition home or self-care (01) ==
PROVIDERS: Internal Medicine Endocrinology, Diabetes & Metabolism; PCP Nurse Practitioner; Visit Provider Internal Medicine Advanced Heart Failure and Transplant Cardiology
DX: M81.0 Age-related osteoporosis without current pathological fracture (principal); Z94.1 Heart transplant status
CPT/HCPCS: 36415; 80053; 80076; 82306; 80197; 83735; 83970; 84100; 84443; 85025; 87497

== ENCOUNTER 2024-10-17 00:49 | Outpatient (CLI) | payer BC, SELFPAY ==
--- NOTE | 2024-10-17 13:05 | DI.MAMMO_ITS ---
Exam(s) MAMMO SCREENING EXAM: MAMMO SCREENING CLINICAL HISTORY: screening TECHNIQUE: Bilateral full field digital CC and MLO mammographic images were obtained with 3D tomosynthesis and utilizing computer aided detection (CAD). COMPARISON: Comparison is made with prior examinations. FINDINGS: Masses/Architectural Distortion: There has been interval increase in size of a nodule in the upper outer quadrant of the left breast which now measures 7 mm. It is located 4 cm from the nipple. There is an focal area of asymmetric density in the retroareolar region of the right breast on the craniocaudad view. This might represent overlying fibroglandular tissue but a spot compression views requested for further evaluation. Microcalcifications: No suspicious pleomorphic-type are seen. Skin Thickening/Nipple Retraction: None. IMPRESSION: 1. Interval increase in size of the nodule in the left breast. New focal asymmetric density in the retroareolar region of the right breast. 2. Additional views are requested for further characterization. Ultrasound may be indicated at that time. BI-RADS Category 0 - Incomplete: Need additional imaging evaluation Breast Density - Category B - There are scattered areas of fibroglandular density. Breast density Category C or D implies that the patient has dense breast tissue. Dense breast tissue can make it harder to find cancer on a mammogram. Dense breast tissue is also associated with an increased risk of breast cancer. This information about the result of the mammogram report was provided to the patient to raise their awareness. Use this report when you speak with the patient about their risks for breast cancer, which includes their family history. At that time, you may recommend additional screening tests (Ultrasound or MRI) as these tests may add significant information. A negative radiographic report should not delay biopsy if a dominant or clinically suspicious mass is present. Up to ten percent of cancers are not identified on mammography. A negative report may reinforce clinical impression. Adenosis and dense breasts may obscure an underlying neoplasm. False positive reports average 6 to 10%. Patient will receive a letter notifying them of these results.
== END 2024-10-17 01:09 ==
PROVIDERS: PCP Nurse Practitioner Family; Visit Provider Obstetrics & Gynecology
DX: Z12.31 Encounter for screening mammogram for malignant neoplasm of breast (principal); R92.323 Mammographic fibroglandular density, bilateral breasts
CPT/HCPCS: 77063; 77067

== ENCOUNTER 2024-10-28 02:47 | Outpatient (CLI) | payer BC, SELFPAY ==
[2024-10-28] MEDS: diphenhydrAMINE 50 MG/ML VIAL IVP (09:07)
[2024-10-28] MEDS: Hydrocortisone SOD SUC. 100 MG VIAL IVP (09:07)
[2024-10-28] MEDS: Acetaminophen 325 MG TAB 650 MG PO (09:08)
[2024-10-28] MEDS: Normal Saline Flush 10 ML SYR IVP (09:08)
[2024-10-28 09:22] VITALS: BP 118/72; PULSE 89; RESP 20; TEMP 36.5; O2SAT 99
[2024-10-28 09:48] VITALS: BP 110/68; PULSE 83; RESP 19; TEMP 36.4; O2SAT 99
[2024-10-28 09:54] LABS: HCT 32.8 % (36.0-46.0); HGB 10.4 g/dL (11.2-15.7); MCH 32.5 pg (27.0-33.0); MCHC 31.7 % (32.0-36.0); MCV 103 fL (80-95); MPV 9.9 fL (8.0-11.0); Platelet Count 295 10^3/uL (130-400); RBC 3.20 10^6/uL (3.93-5.22); RDW 13.1 % (11.7-14.6); RDW-SD 49.2 fL; WBC 4.98 10^3/uL (4.4-10.8)
[2024-10-28 10:07] LABS: Abs Immature Grans 0.00 10^3/uL (0.0-0.06); Immature Grans % 0.0 %; RBC Morphology Normal
[2024-10-28 10:12] VITALS: BP 109/69; PULSE 83; RESP 20; TEMP 36.4; O2SAT 99
[2024-10-28 10:27] LABS: ALT 58 U/L (14-59); AST 43 U/L (15-37); Albumin 3.8 g/dL (3.4-5.0); Alkaline Phosphatase 225 U/L (46-116); Anion Gap 9.8 mmol/L (3-11); BUN 21 mg/dL (7-18); Bilirubin, Total 0.2 mg/dL (0.2-1.0); CO2 24.2 mmol/L (21.0-32.0); Calcium 9.0 mg/dL (8.5-10.1); Chloride 105 mmol/L (98-107); Estimated GFR 63.70 (mL/min/1.73m2); Glucose 92 mg/dL (74-106); Magnesium 1.9 mg/dL (1.8-2.4); Potassium 4.7 mmol/L (3.5-5.1); Sodium 139 mmol/L (136-145); Total Protein 7.5 g/dL (6.4-8.2)
[2024-10-28] MEDS: IMMUNE GLOBULIN,GAMMA(IGG) 30 GM/300 ML BTL IVPB ×2 (10:39→11:50)
[2024-10-28 10:53] VITALS: BP 106/64; PULSE 80; RESP 19; TEMP 36.4; O2SAT 97
[2024-10-28 11:20] VITALS: BP 111/68; PULSE 77; RESP 20; TEMP 36.2; O2SAT 99
== END 2024-10-28 15:25 ==
LOC: INF 15:25
PROVIDERS: PCP Nurse Practitioner Family; Visit Provider Family Medicine
DX: T86.21 Heart transplant rejection (principal)
CPT/HCPCS: 80053; 96365; 96366; 96374; 80197; 83735; 84100; 85025; J1200; J1569; J1720

== ENCOUNTER 2024-10-29 02:54 | Outpatient (CLI) | payer BC, SELFPAY ==
--- NOTE | 2024-10-29 | DI.MAMMO_ITS ---
Exam(s) US BREAST LT COMPLETE US BREAST RT COMPLETE MG MAMMO SCREEN CALL BACK BI EXAM: MG MAMMO SCREEN CALL BACK BI AND COMPLETE BILATERAL BREAST ULTRASOUND CLINICAL HISTORY: Lt breast: Interval increased in size of nodule. Rt breast: New nodule TECHNIQUE: Bilateral spot mammographic images obtained with 3D tomosynthesisand utilizing computer aided detection (CAD). . Complete bilateral breast Ultrasound was also performed, including all 4 quadrants, the retroareolar region, and the ipsilateral axilla. COMPARISON: Prior mammograms were reviewed. This additional imaging was performed due to findings described on the recent screening mammogram of 10/17/2024. FINDINGS: DIAGNOSTIC MAMMOGRAM: Additional mammographic views performed todayof the right breast renders this area less concerning and similar in appearance to prior mammograms. Additional spot views of the opposite-left breast do not dissipate the recently described nodule which has increased in size from prior mammograms. We proceeded with bilateral breast ultrasound...... COMPLETE BILATERAL BREAST ULTRASOUND: Right breast ultrasound reveals no evidence of solid or significant cystic lesions in all 4 quadrants. Scanning of the right axilla is negative for adenopathy. Left breast ultrasound reveals a solitary finding at the 1-2 o'clock position which most probably corresponds to the finding on the recent mammogram. This is a 7 x 5 mm hyperechoic nodule with hypoechoic center and no feeding vessel nor regional hyperemia. There is no tract to the skin (and indeed this patient has no skin findings in this region of the breast). There are no other focal ultrasound findings in all 4 quadrants nor in the retroareolar region. Scanning of the right axilla is negative for significant adenopathy. IMPRESSION: 1. No evidence of malignancy in the right breast. 2. Left breast finding as above (1-2 o'clock position). Has benign appearance but nevertheless has increased in size on mammography. I note that this patient had cardiac transplant in December 2023 and is on immunosuppressive therapy. Appropriate follow-up as discussed by myself with the patient today is repeat left breast imaging in 3 months, this to include repeat left breast ultrasound and mammogram. The patient was informed of these findings and recommendations by myself prior to leaving the department today. BI-RADS Category 3 - 6 month - Probably Benign Finding: Recommend follow-up mammography in 6 months Breast Density - Category B - There are scattered areas of fibroglandular density. Breast density Category C or D implies that the patient has dense breast tissue. Dense breast tissue can make it harder to find cancer on a mammogram. Dense breast tissue is also associated with an increased risk of breast cancer. This information about the result of the mammogram report was provided to the patient to raise their awareness. Use this report when you speak with the patient about their risks for breast cancer, which includes their family history. At that time, you may recommend additional screening tests (Ultrasound or MRI) as these tests may add significant information. A negative radiographic report should not delay biopsy if a dominant or clinically suspicious mass is present. Up to ten percent of cancers are not identified on mammography. A negative report may reinforce clinical impression. Adenosis and dense breasts may obscure an underlying neoplasm. False positive reports average 6 to 10%. Patient will receive a letter notifying them of these results.
== END 2024-10-29 03:14 ==
LOC: DI 02:55
PROVIDERS: PCP Nurse Practitioner Family; Visit Provider Obstetrics & Gynecology
DX: Z12.31 Encounter for screening mammogram for malignant neoplasm of breast (principal); R92.323 Mammographic fibroglandular density, bilateral breasts
CPT/HCPCS: 76642; 77063; 77067

== ENCOUNTER 2024-11-04 03:25 | Outpatient (CLI) | payer BC, SELFPAY ==
[2024-11-04 08:31] LABS: HCT 32.1 % (36.0-46.0); HGB 10.1 g/dL (11.2-15.7); MCH 32.8 pg (27.0-33.0); MCHC 31.5 % (32.0-36.0); MCV 104 fL (80-95); MPV 10.1 fL (8.0-11.0); Platelet Count 237 10^3/uL (130-400); RBC 3.08 10^6/uL (3.93-5.22); RDW 13.0 % (11.7-14.6); RDW-SD 49.6 fL; WBC 3.97 10^3/uL (4.4-10.8)
[2024-11-04 09:09] LABS: Abs Immature Grans 0.00 10^3/uL (0.0-0.06); Immature Grans % 0.0 %; RBC Morphology Normal
[2024-11-04 09:49] LABS: ALT 71 U/L (14-59); AST 46 U/L (15-37); Albumin 3.5 g/dL (3.4-5.0); Alkaline Phosphatase 224 U/L (46-116); Anion Gap 6.7 mmol/L (3-11); BUN 25 mg/dL (7-18); Bilirubin, Direct 0.1 mg/dL (0.0-0.2); Bilirubin, Total 0.2 mg/dL (0.2-1.0); CO2 25.3 mmol/L (21.0-32.0); Calcium 8.9 mg/dL (8.5-10.1); Chloride 106 mmol/L (98-107); Estimated GFR 56.81 (mL/min/1.73m2); Glucose 114 mg/dL (74-106); Magnesium 1.8 mg/dL (1.8-2.4); Potassium 4.8 mmol/L (3.5-5.1); Sodium 138 mmol/L (136-145); Total Protein 8.3 g/dL (6.4-8.2)
[2024-11-06 18:16] LABS: CMV DNA Detect/Quant, P <35 IU/mL (Undetected)
== END 2024-11-04 03:26 | disposition home or self-care (01) ==
LOC: LBO 03:25
PROVIDERS: PCP Nurse Practitioner Family; Visit Provider Internal Medicine Advanced Heart Failure and Transplant Cardiology
DX: Z94.1 Heart transplant status (principal)
CPT/HCPCS: 36415; 80053; 80076; 80197; 83735; 84100; 85025; 87497

== ENCOUNTER 2024-11-11 04:39 | Outpatient (CLI) | payer BC, SELFPAY ==
[2024-11-11 08:26] LABS: Abs Immature Grans 0.08 10^3/uL (0.0-0.06); HCT 33.6 % (36.0-46.0); HGB 10.7 g/dL (11.2-15.7); Immature Grans % 1.7 %; MCH 33.0 pg (27.0-33.0); MCHC 31.8 % (32.0-36.0); MCV 104 fL (80-95); MPV 10.2 fL (8.0-11.0); Platelet Count 246 10^3/uL (130-400); RBC 3.24 10^6/uL (3.93-5.22); RDW 12.9 % (11.7-14.6); RDW-SD 48.0 fL; WBC 4.61 10^3/uL (4.4-10.8)
[2024-11-11 09:09] LABS: ALT 64 U/L (14-59); AST 54 U/L (15-37); Albumin 3.7 g/dL (3.4-5.0); Alkaline Phosphatase 265 U/L (46-116); Anion Gap 12.0 mmol/L (3-11); BUN 30 mg/dL (7-18); Bilirubin, Direct 0.1 mg/dL (0.0-0.2); Bilirubin, Total 0.2 mg/dL (0.2-1.0); CO2 23.0 mmol/L (21.0-32.0); Calcium 9.0 mg/dL (8.5-10.1); Chloride 108 mmol/L (98-107); Estimated GFR 51.18 (mL/min/1.73m2); Glucose 103 mg/dL (74-106); Magnesium 1.9 mg/dL (1.8-2.4); Potassium 5.0 mmol/L (3.5-5.1); Sodium 143 mmol/L (136-145); Total Protein 8.1 g/dL (6.4-8.2)
[2024-11-13 18:42] LABS: CMV DNA Detect/Quant, P <35 IU/mL (Undetected)
== END 2024-11-11 04:40 | disposition home or self-care (01) ==
PROVIDERS: PCP Nurse Practitioner Family; Visit Provider Internal Medicine Advanced Heart Failure and Transplant Cardiology
DX: Z94.1 Heart transplant status (principal)
CPT/HCPCS: 36415; 80053; 80076; 80197; 83735; 84100; 85025; 87497

== ENCOUNTER 2024-11-25 03:41 | Outpatient (CLI) | payer BC, SELFPAY ==
[2024-11-25 09:37] VITALS: BP 114/73; PULSE 83; RESP 18; TEMP 36.5; O2SAT 98
[2024-11-25] MEDS: Acetaminophen 325 MG TAB 650 MG PO (09:38)
[2024-11-25] MEDS: Normal Saline Flush 10 ML SYR IVP (09:39)
[2024-11-25] MEDS: diphenhydrAMINE 50 MG/ML VIAL IVP (09:39)
[2024-11-25] MEDS: Hydrocortisone SOD SUC. 100 MG VIAL IVP (09:39)
[2024-11-25 09:58] LABS: HCT 29.7 % (36.0-46.0); HGB 9.7 g/dL (11.2-15.7); MCH 32.8 pg (27.0-33.0); MCHC 32.7 % (32.0-36.0); MCV 100 fL (80-95); MPV 10.3 fL (8.0-11.0); Platelet Count 272 10^3/uL (130-400); RBC 2.96 10^6/uL (3.93-5.22); RDW 12.8 % (11.7-14.6); RDW-SD 46.1 fL; WBC 4.19 10^3/uL (4.4-10.8)
[2024-11-25 10:13] LABS: ALT 53 U/L (14-59); AST 46 U/L (15-37); Albumin 3.4 g/dL (3.4-5.0); Alkaline Phosphatase 199 U/L (46-116); Anion Gap 9.5 mmol/L (3-11); BUN 23 mg/dL (7-18); Bilirubin, Total 0.3 mg/dL (0.2-1.0); CO2 23.5 mmol/L (21.0-32.0); Calcium 8.8 mg/dL (8.5-10.1); Chloride 109 mmol/L (98-107); Estimated GFR 72.28 (mL/min/1.73m2); Glucose 120 mg/dL (74-106); Magnesium 1.9 mg/dL (1.8-2.4); Potassium 4.9 mmol/L (3.5-5.1); Sodium 142 mmol/L (136-145); Total Protein 7.2 g/dL (6.4-8.2)
[2024-11-25 10:25] LABS: Abs Immature Grans 0.00 10^3/uL (0.0-0.06); Immature Grans % 0.0 %; RBC Morphology Normal
[2024-11-25 10:36] VITALS: BP 113/72; PULSE 79; RESP 17; TEMP 35.6; O2SAT 98
[2024-11-25 10:55] VITALS: BP 111/71; PULSE 82; RESP 19; TEMP 36.5; O2SAT 98
[2024-11-25] MEDS: IMMUNE GLOBULIN,GAMMA(IGG) 30 GM/300 ML BTL IVPB ×2 (10:56→12:15)
[2024-11-25 11:25] VITALS: BP 114/71; PULSE 77; RESP 18; TEMP 36.6; O2SAT 97
[2024-11-25 11:56] VITALS: BP 118/75; PULSE 75; RESP 19; TEMP 36.5; O2SAT 98
== END 2024-11-25 03:42 | disposition home or self-care (01) ==
LOC: INF 03:42
PROVIDERS: Internal Medicine Advanced Heart Failure and Transplant Cardiology; PCP Nurse Practitioner Family; Visit Provider Family Medicine
DX: Z94.1 Heart transplant status (principal)
CPT/HCPCS: 36415; 80053; 80076; 96365; 96366; 96374; 96375; 80197; 83735; 84100; 85025; 87497; J1200; J1569; J1720

== ENCOUNTER 2024-12-03 09:59 | Outpatient (CLI) | payer BC, SELFPAY ==
[2024-12-03 09:45] LABS: Abs Immature Grans 0.05 10^3/uL (0.0-0.06); HCT 32.2 % (36.0-46.0); HGB 10.1 g/dL (11.2-15.7); Immature Grans % 1.2 %; MCH 31.2 pg (27.0-33.0); MCHC 31.4 % (32.0-36.0); MCV 99 fL (80-95); MPV 9.9 fL (8.0-11.0); Platelet Count 243 10^3/uL (130-400); RBC 3.24 10^6/uL (3.93-5.22); RDW 12.9 % (11.7-14.6); RDW-SD 46.2 fL; WBC 4.14 10^3/uL (4.4-10.8)
[2024-12-03 10:52] LABS: ALT 42 U/L (14-59); AST 38 U/L (15-37); Albumin 3.6 g/dL (3.4-5.0); Alkaline Phosphatase 186 U/L (46-116); Anion Gap 8.7 mmol/L (3-11); BUN 24 mg/dL (7-18); Bilirubin, Direct 0.1 mg/dL (0.0-0.2); Bilirubin, Total 0.2 mg/dL (0.2-1.0); CO2 24.3 mmol/L (21.0-32.0); Calcium 9.1 mg/dL (8.5-10.1); Chloride 107 mmol/L (98-107); Estimated GFR 63.70 (mL/min/1.73m2); Glucose 90 mg/dL (74-106); Magnesium 1.8 mg/dL (1.8-2.4); Potassium 4.4 mmol/L (3.5-5.1); Sodium 140 mmol/L (136-145); Total Protein 8.1 g/dL (6.4-8.2)
[2024-12-05 16:55] LABS: CMV DNA Detect/Quant, P <35 IU/mL (Undetected)
== END 2024-12-03 10:00 | disposition home or self-care (01) ==
LOC: LBO 09:59
PROVIDERS: PCP Nurse Practitioner Family; Visit Provider Internal Medicine Advanced Heart Failure and Transplant Cardiology
DX: Z94.1 Heart transplant status (principal)
CPT/HCPCS: 36415; 80053; 80076; 80197; 83735; 84100; 85025; 87497

== ENCOUNTER 2024-12-10 08:31 | Outpatient (CLI) | payer BC, SELFPAY ==
[2024-12-10 11:09] LABS: Abs Immature Grans 0.17 10^3/uL (0.0-0.06); HCT 36.4 % (36.0-46.0); HGB 11.4 g/dL (11.2-15.7); Immature Grans % 4.2 %; MCH 31.1 pg (27.0-33.0); MCHC 31.3 % (32.0-36.0); MCV 100 fL (80-95); MPV 10.9 fL (8.0-11.0); Platelet Count 201 10^3/uL (130-400); RBC 3.66 10^6/uL (3.93-5.22); RDW 13.0 % (11.7-14.6); RDW-SD 47.3 fL; WBC 4.01 10^3/uL (4.4-10.8)
[2024-12-12 22:20] LABS: CMV DNA Detect/Quant, P <35 IU/mL (Undetected)
== END 2024-12-10 08:32 | disposition home or self-care (01) ==
PROVIDERS: PCP Nurse Practitioner Family; Visit Provider Internal Medicine Advanced Heart Failure and Transplant Cardiology
DX: Z94.1 Heart transplant status (principal)
CPT/HCPCS: 36415; 80053; 80076; 80197; 83735; 84100; 85025; 87497

== ENCOUNTER 2024-12-11 04:23 | Outpatient (CLI) | payer BC, SELFPAY ==
[2024-12-11 15:26] LABS: ALT 52 U/L (14-59); AST 41 U/L (15-37); Albumin 3.5 g/dL (3.4-5.0); Alkaline Phosphatase 198 U/L (46-116); Anion Gap 11.6 mmol/L (3-11); BUN 30 mg/dL (7-18); Bilirubin, Direct 0.1 mg/dL (0.0-0.2); Bilirubin, Total 0.2 mg/dL (0.2-1.0); CO2 22.4 mmol/L (21.0-32.0); Calcium 8.7 mg/dL (8.5-10.1); Chloride 109 mmol/L (98-107); Estimated GFR 56.81 (mL/min/1.73m2); Glucose 129 mg/dL (74-106); Magnesium 1.9 mg/dL (1.8-2.4); Potassium 4.6 mmol/L (3.5-5.1); Sodium 143 mmol/L (136-145); Total Protein 7.6 g/dL (6.4-8.2)
== END 2024-12-11 04:24 | disposition home or self-care (01) ==
LOC: LBO 04:23
PROVIDERS: PCP Nurse Practitioner Family; Visit Provider Internal Medicine Advanced Heart Failure and Transplant Cardiology
DX: Z94.1 Heart transplant status (principal)
CPT/HCPCS: 80053; 80076; 83735; 84100

== ENCOUNTER 2024-12-17 03:51 | Outpatient (CLI) | payer BC, SELFPAY ==
[2024-12-17 10:22] LABS: Abs Immature Grans 0.19 10^3/uL (0.0-0.06); HCT 35.6 % (36.0-46.0); HGB 11.5 g/dL (11.2-15.7); Immature Grans % 3.7 %; MCH 31.9 pg (27.0-33.0); MCHC 32.3 % (32.0-36.0); MCV 99 fL (80-95); MPV 10.5 fL (8.0-11.0); Platelet Count 275 10^3/uL (130-400); RBC 3.60 10^6/uL (3.93-5.22); RDW 13.0 % (11.7-14.6); RDW-SD 46.4 fL; WBC 5.17 10^3/uL (4.4-10.8)
[2024-12-17 11:17] LABS: TSH 3.00 uIU/mL (0.36-3.74); Vitamin D 25 Total 51 ng/mL (30-100)
[2024-12-17 11:22] LABS: ALT 45 U/L (14-59); AST 38 U/L (15-37); Albumin 3.8 g/dL (3.4-5.0); Alkaline Phosphatase 202 U/L (46-116); Anion Gap 10.2 mmol/L (3-11); BUN 18 mg/dL (7-18); Bilirubin, Direct 0.1 mg/dL (0.0-0.2); Bilirubin, Total 0.2 mg/dL (0.2-1.0); CO2 24.8 mmol/L (21.0-32.0); Calcium 9.2 mg/dL (8.5-10.1); Chloride 105 mmol/L (98-107); Estimated GFR 63.70 (mL/min/1.73m2); Glucose 105 mg/dL (74-106); Magnesium 1.6 mg/dL (1.8-2.4); Potassium 4.0 mmol/L (3.5-5.1); Sodium 140 mmol/L (136-145); Total Protein 7.9 g/dL (6.4-8.2)
[2024-12-19 21:12] LABS: CMV DNA Detect/Quant, P <35 IU/mL (Undetected)
== END 2024-12-17 03:52 | disposition home or self-care (01) ==
PROVIDERS: Internal Medicine Endocrinology, Diabetes & Metabolism; PCP Nurse Practitioner Family; Visit Provider Internal Medicine Advanced Heart Failure and Transplant Cardiology
DX: Z94.1 Heart transplant status (principal); M81.0 Age-related osteoporosis without current pathological fracture
CPT/HCPCS: 36415; 80053; 80076; 82306; 80197; 83735; 83970; 84100; 84443; 85025; 87497

== ENCOUNTER 2024-12-20 15:00 | Outpatient (RCR) | payer SELFPAY ==
[2024-12-06 15:00] VITALS: BP 112/69; PULSE 101; O2SAT 96
[2024-12-11 15:20] VITALS: BP 116/71; PULSE 103
[2024-12-18 15:28] VITALS: BP 123/71; PULSE 105
[2024-12-20 14:53] VITALS: BP 119/78; PULSE 90
[2024-12-20 15:00] VITALS: BP 119/78; PULSE 90
== END 2024-12-31 23:59 | disposition home or self-care (01) ==
LOC: CR 15:00
PROVIDERS: PCP Nurse Practitioner Family; Visit Provider Internal Medicine Cardiovascular Disease
DX: R69 Illness, unspecified (principal)

== ENCOUNTER 2024-12-25 03:57 | Outpatient (CLI) | payer BC, SELFPAY ==
[2024-12-25] MEDS: Hydrocortisone SOD SUC. 100 MG VIAL IVP (09:09)
[2024-12-25] MEDS: Acetaminophen 325 MG TAB 650 MG PO (09:09)
[2024-12-25] MEDS: diphenhydrAMINE 50 MG/ML VIAL IVP (09:09)
[2024-12-25] MEDS: Normal Saline Flush 10 ML SYR IVP (09:10)
[2024-12-25 09:20] VITALS: BP 117/74; PULSE 86; RESP 19; TEMP 36.6; O2SAT 98
[2024-12-25 09:46] VITALS: BP 121/77; PULSE 85; RESP 18; TEMP 36.3; O2SAT 100
[2024-12-25 10:02] VITALS: BP 124/76; PULSE 80; RESP 17; TEMP 36.3; O2SAT 99
[2024-12-25] MEDS: IMMUNE GLOBULIN,GAMMA(IGG) 30 GM/300 ML BTL IVPB ×2 (10:22→11:31)
[2024-12-25 10:34] VITALS: BP 119/76; PULSE 80; RESP 18; TEMP 36.3; O2SAT 98
[2024-12-25 11:04] VITALS: BP 119/74; PULSE 75; RESP 18; TEMP 36; O2SAT 97
== END 2024-12-25 03:58 | disposition home or self-care (01) ==
PROVIDERS: PCP Nurse Practitioner Family; Visit Provider Family Medicine
DX: M81.0 Age-related osteoporosis without current pathological fracture (principal)
CPT/HCPCS: 96365; 96366; 96374; 96375; 82043; 82570; J1200; J1569; J1720

== ENCOUNTER 2025-01-08 03:27 | Outpatient (RCR) | payer BC, SELFPAY ==
[2025-01-08] MEDS: Normal Saline Flush 10 ML SYR IVP (13:37)
== END 2025-01-31 23:59 | disposition home or self-care (01) ==
LOC: INF 03:27
PROVIDERS: PCP Nurse Practitioner Family; Visit Provider Family Medicine
DX: M81.0 Age-related osteoporosis without current pathological fracture (principal)
CPT/HCPCS: 96365; J3489

== ENCOUNTER 2025-01-14 03:20 | Outpatient (CLI) | payer BC, SELFPAY ==
[2025-01-14 09:39] LABS: Abs Immature Grans 0.40 10^3/uL (0.0-0.06); HCT 33.3 % (36.0-46.0); HGB 10.6 g/dL (11.2-15.7); Immature Grans % 7.4 %; MCH 31.3 pg (27.0-33.0); MCHC 31.8 % (32.0-36.0); MCV 98 fL (80-95); MPV 10.2 fL (8.0-11.0); Platelet Count 283 10^3/uL (130-400); RBC 3.39 10^6/uL (3.93-5.22); RDW 12.9 % (11.7-14.6); RDW-SD 46.0 fL; WBC 5.42 10^3/uL (4.4-10.8)
[2025-01-14 10:21] LABS: ALT 55 U/L (14-59); AST 40 U/L (15-37); Albumin 3.5 g/dL (3.4-5.0); Alkaline Phosphatase 194 U/L (46-116); Anion Gap 9.7 mmol/L (3-11); BUN 29 mg/dL (7-18); Bilirubin, Direct 0.1 mg/dL (0.0-0.2); Bilirubin, Total 0.3 mg/dL (0.2-1.0); CO2 26.3 mmol/L (21.0-32.0); Calcium 9.1 mg/dL (8.5-10.1); Chloride 105 mmol/L (98-107); Estimated GFR 51.18 (mL/min/1.73m2); Glucose 87 mg/dL (74-106); Magnesium 1.9 mg/dL (1.8-2.4); Potassium 4.6 mmol/L (3.5-5.1); Sodium 141 mmol/L (136-145); Total Protein 7.8 g/dL (6.4-8.2)
[2025-01-16 15:48] LABS: CMV DNA Detect/Quant, P <35 IU/mL (Undetected)
== END 2025-01-14 03:21 | disposition home or self-care (01) ==
PROVIDERS: PCP Nurse Practitioner Family; Visit Provider Internal Medicine Advanced Heart Failure and Transplant Cardiology
DX: Z94.1 Heart transplant status (principal)
CPT/HCPCS: 36415; 80053; 80076; 80197; 83735; 84100; 85025; 87497

== ENCOUNTER 2025-01-20 03:28 | Outpatient (CLI) | payer BC, SELFPAY ==
[2025-01-20] VITALS (7 sets, daily range): BP systolic 103–121; BP diastolic 67–76; PULSE 77–96; RESP 17; TEMP 35.8–36.5; O2SAT 97–99
[2025-01-20] MEDS: Hydrocortisone SOD SUC. 100 MG VIAL IVP (09:11)
[2025-01-20] MEDS: Acetaminophen 325 MG TAB 650 MG PO (09:11)
[2025-01-20] MEDS: Normal Saline Flush 10 ML SYR IVP (09:12)
[2025-01-20] MEDS: diphenhydrAMINE 50 MG/ML VIAL IVP (09:12)
[2025-01-20 09:24] LABS: Abs Immature Grans 0.19 10^3/uL (0.0-0.06); HCT 33.7 % (36.0-46.0); HGB 11.1 g/dL (11.2-15.7); Immature Grans % 3.6 %; MCH 31.5 pg (27.0-33.0); MCHC 32.9 % (32.0-36.0); MCV 96 fL (80-95); MPV 10.2 fL (8.0-11.0); Platelet Count 332 10^3/uL (130-400); RBC 3.52 10^6/uL (3.93-5.22); RDW 12.8 % (11.7-14.6); RDW-SD 44.0 fL; WBC 5.34 10^3/uL (4.4-10.8)
[2025-01-20 09:50] LABS: ALT 39 U/L (14-59); AST 32 U/L (15-37); Albumin 3.5 g/dL (3.4-5.0); Alkaline Phosphatase 165 U/L (46-116); Anion Gap 8.7 mmol/L (3-11); BUN 24 mg/dL (7-18); Bilirubin, Direct 0.1 mg/dL (0.0-0.2); Bilirubin, Total 0.4 mg/dL (0.2-1.0); CO2 25.3 mmol/L (21.0-32.0); Calcium 8.8 mg/dL (8.5-10.1); Chloride 107 mmol/L (98-107); Estimated GFR 63.70 (mL/min/1.73m2); Glucose 97 mg/dL (74-106); Magnesium 2.0 mg/dL (1.8-2.4); Potassium 4.5 mmol/L (3.5-5.1); Sodium 141 mmol/L (136-145); Total Protein 7.6 g/dL (6.4-8.2)
[2025-01-20] MEDS: IMMUNE GLOBULIN,GAMMA(IGG) 30 GM/300 ML BTL IVPB ×2 (10:45→12:05)
[2025-01-22 17:04] LABS: CMV DNA Detect/Quant, P <35 IU/mL (Undetected)
== END 2025-01-20 03:29 | disposition home or self-care (01) ==
LOC: INF 03:29
PROVIDERS: Internal Medicine Advanced Heart Failure and Transplant Cardiology; PCP Nurse Practitioner Family; Visit Provider Family Medicine
DX: M81.0 Age-related osteoporosis without current pathological fracture (principal)
CPT/HCPCS: 36415; 80053; 80076; 96365; 96366; 80197; 83735; 84100; 85025; 87497; J1200; J1569; J1720

== ENCOUNTER 2025-01-27 03:06 | Outpatient (CLI) | payer BC, SELFPAY ==
[2025-01-27 10:14] LABS: Abs Immature Grans 0.10 10^3/uL (0.0-0.06); HCT 33.7 % (36.0-46.0); HGB 10.6 g/dL (11.2-15.7); Immature Grans % 2.2 %; MCH 30.5 pg (27.0-33.0); MCHC 31.5 % (32.0-36.0); MCV 97 fL (80-95); MPV 10.3 fL (8.0-11.0); Platelet Count 227 10^3/uL (130-400); RBC 3.47 10^6/uL (3.93-5.22); RDW 12.8 % (11.7-14.6); RDW-SD 44.9 fL; WBC 4.50 10^3/uL (4.4-10.8)
[2025-01-27 10:46] LABS: ALT 40 U/L (14-59); AST 42 U/L (15-37); Albumin 3.4 g/dL (3.4-5.0); Alkaline Phosphatase 150 U/L (46-116); Anion Gap 6.8 mmol/L (3-11); BUN 22 mg/dL (7-18); Bilirubin, Direct 0.1 mg/dL (0.0-0.2); Bilirubin, Total 0.3 mg/dL (0.2-1.0); CO2 27.2 mmol/L (21.0-32.0); Calcium 9.0 mg/dL (8.5-10.1); Chloride 106 mmol/L (98-107); Estimated GFR 72.28 (mL/min/1.73m2); Glucose 92 mg/dL (74-106); Magnesium 1.8 mg/dL (1.8-2.4); Potassium 4.6 mmol/L (3.5-5.1); Sodium 140 mmol/L (136-145); Total Protein 8.2 g/dL (6.4-8.2)
[2025-01-29 12:48] LABS: CMV DNA Detect/Quant, P <35 IU/mL (Undetected)
== END 2025-01-27 03:07 | disposition home or self-care (01) ==
PROVIDERS: PCP Nurse Practitioner Family; Visit Provider Internal Medicine Advanced Heart Failure and Transplant Cardiology
DX: Z94.1 Heart transplant status (principal)
CPT/HCPCS: 36415; 80053; 80076; 80197; 83735; 84100; 85025; 87497

== ENCOUNTER 2025-01-29 01:18 | Outpatient (CLI) | payer BC, SELFPAY ==
--- NOTE | 2025-01-29 08:15 | DI.US_ITS ---
Exam(s) US BREAST LT COMPLETE EXAM: US BREAST LT COMPLETE CLINICAL HISTORY: follow up R92.8 ABNL MAMMO LEFT BREAST. TECHNIQUE: Complete ultrasound of the breast was performed including all 4 quadrants, the retroareolar region, and the ipsilateral axilla. COMPARISON: Prior mammograms were reviewed. FINDINGS: see combined report IMPRESSION: Appropriate follow-up is . Category: Density: Breast density Category C or D implies that the patient has dense breast tissue. Dense breast tissue can make it harder to find cancer on a mammogram. Dense breast tissue is also associated with an increased risk of breast cancer. This information about the result of the mammogram report was provided to the patient to raise their awareness. Use this report when you speak with the patient about their risks for breast cancer, which includes their family history. At that time, you may recommend additional screening tests (Ultrasound or MRI) as these tests may add significant information. A negative radiographic report should not delay biopsy if a dominant or clinically suspicious mass is present. Up to ten percent of cancers are not identified on mammography. A negative report may reinforce clinical impression. Adenosis and dense breasts may obscure an underlying neoplasm. False positive reports average 6 to 10%. Patient will receive a letter notifying them of these results.
--- NOTE | 2025-01-29 08:24 | DI.MAMMO_ITS ---
Exam(s) MAMMO DIAGNOSTIC UNI EXAM: MAMMO DIAGNOSTIC UNI-LEFT AND COMPLETE LEFT BREAST ULTRASOUND CLINICAL HISTORY: follow up R92.8 ABNL MAMMO LEFT BREAST. TECHNIQUE: Unilateral LEFT BREAST CC AND MLO mammographic images were obtained with 3D tomosynthesis technique and utilizing computer aided detection (CAD). COMPLETE LEFT BREAST ULTRASOUND was performed including all 4 quadrants as well as the axillary region COMPARISON: Prior mammograms were reviewed, the most recent being 10/17/2024. The ultrasound at that time was also reviewed.. FINDINGS: DIAGNOSTIC LEFT BREAST MAMMOGRAM: The previously present left breast nodule is no longer seen. There are no new left breast mammographic findings. COMPLETE LEFT BREAST ULTRASOUND: No evidence of solid or significant cystic lesions in all 4 quadrants. Previously described 7 x 5 mm nodule at the 1-2 o'clock position is no longer seen. Scanning of the left axilla is negative for adenopathy. IMPRESSION: No radiographic evidence of malignancy. The previously present left breast nodule is no longer seen on mammography. Negative complete left breast ultrasound. The previously present left breast nodule at the 1-2 o'clock position is also no longer seen on ultrasound. Appropriate follow-up is to keep this patient on a yearly mammogram schedule, with earlier imaging if a self detected breast change is noted.. The patient was informed of the findings and follow-up recommendations by myself prior to leaving the department today. BI-RADS Category 1 - Negative Breast Density - Category B - There are scattered areas of fibroglandular density. Breast density Category C or D implies that the patient has dense breast tissue. Dense breast tissue can make it harder to find cancer on a mammogram. Dense breast tissue is also associated with an increased risk of breast cancer. This information about the result of the mammogram report was provided to the patient to raise their awareness. Use this report when you speak with the patient about their risks for breast cancer, which includes their family history. At that time, you may recommend additional screening tests (Ultrasound or MRI) as these tests may add significant information. A negative radiographic report should not delay biopsy if a dominant or clinically suspicious mass is present. Up to ten percent of cancers are not identified on mammography. A negative report may reinforce clinical impression. Adenosis and dense breasts may obscure an underlying neoplasm. False positive reports average 6 to 10%. Patient will receive a letter notifying them of these results.
== END 2025-01-29 01:38 ==
LOC: DI 01:20
PROVIDERS: PCP Nurse Practitioner Family; Visit Provider Obstetrics & Gynecology
DX: R92.8 Other abnormal and inconclusive findings on diagnostic imaging of breast (principal); Z12.31 Encounter for screening mammogram for malignant neoplasm of breast
CPT/HCPCS: 76642; 77061; 77065; G0279

== ENCOUNTER 2025-02-17 02:21 | Outpatient (CLI) | payer BC, SELFPAY ==
[2025-02-17] MEDS: Normal Saline Flush 10 ML SYR IVP (09:22)
[2025-02-17] MEDS: Acetaminophen 325 MG TAB 650 MG PO (09:22)
[2025-02-17] MEDS: Hydrocortisone SOD SUC. 100 MG VIAL IVP (09:22)
[2025-02-17] MEDS: diphenhydrAMINE 50 MG/ML VIAL IVP (09:22)
[2025-02-17] MEDS: [UNRECOGNIZED DRUG - OTHER] IVPB ×2 (09:29→11:45)
[2025-02-17 09:39] VITALS: BP 114/76; PULSE 82; RESP 18; TEMP 36.2; O2SAT 98
[2025-02-17 09:59] LABS: Abs Immature Grans 0.13 10^3/uL (0.0-0.06); HCT 33.0 % (36.0-46.0); HGB 10.5 g/dL (11.2-15.7); Immature Grans % 2.4 %; MCH 30.8 pg (27.0-33.0); MCHC 31.8 % (32.0-36.0); MCV 97 fL (80-95); MPV 10.7 fL (8.0-11.0); Platelet Count 235 10^3/uL (130-400); RBC 3.41 10^6/uL (3.93-5.22); RDW 12.9 % (11.7-14.6); RDW-SD 45.3 fL; WBC 5.37 10^3/uL (4.4-10.8)
[2025-02-17 10:10] VITALS: BP 105/62; PULSE 84; RESP 18; TEMP 36.3; O2SAT 99
[2025-02-17 10:19] LABS: Magnesium 1.7 mg/dL (1.6-2.6)
[2025-02-17 10:32] LABS: ALT 34 U/L (10-49); AST 40 U/L (<34); Albumin 4.2 g/dL (3.4-5.0); Alkaline Phosphatase 118 U/L (46-116); Anion Gap 10.8 mmol/L (3-11); BUN 21 mg/dL (9-23); Bilirubin, Direct 0.1 mg/dL (<=0.3); Bilirubin, Total < 0.20 mg/dL (0.2-1.2); CO2 23.2 mmol/L (20.0-31.0); Calcium 9.0 mg/dL (8.3-10.6); Chloride 110 mmol/L (98-107); Glucose 98 mg/dL (74-106); Potassium 4.1 mmol/L (3.5-5.1); Sodium 144 mmol/L (136-145); Total Protein 7.2 g/dL (5.7-8.2)
[2025-02-17 10:41] VITALS: BP 118/76; PULSE 81; RESP 18; TEMP 36.3; O2SAT 98
[2025-02-17 11:44] VITALS: BP 116/78; PULSE 80; RESP 18; TEMP 36.2; O2SAT 98
[2025-02-17 12:15] VITALS: BP 126/82; PULSE 80; RESP 18; TEMP 36.3; O2SAT 98
[2025-02-17 12:45] VITALS: BP 129/84; PULSE 82; RESP 18; TEMP 36.4; O2SAT 99
[2025-02-17] MEDS: [UNRECOGNIZED DRUG - OTHER] IVPB (12:55)
[2025-02-19 13:07] LABS: CMV DNA Detect/Quant, P <35 IU/mL (Undetected)
== END 2025-02-17 02:22 | disposition home or self-care (01) ==
LOC: INF 02:21
PROVIDERS: Internal Medicine Advanced Heart Failure and Transplant Cardiology; PCP Nurse Practitioner Family; Visit Provider Family Medicine
DX: Z94.1 Heart transplant status (principal)
CPT/HCPCS: 36415; 80053; 80076; 96365; 96366; 80197; 83735; 84100; 85025; 87497; J1200; J1569; J1720

== ENCOUNTER 2025-02-25 01:42 | Outpatient (CLI) | payer BC, SELFPAY ==
[2025-02-25 10:23] LABS: Abs Immature Grans 0.11 10^3/uL (0.0-0.06); HCT 35.5 % (36.0-46.0); HGB 11.2 g/dL (11.2-15.7); Immature Grans % 2.7 %; MCH 29.9 pg (27.0-33.0); MCHC 31.5 % (32.0-36.0); MCV 95 fL (80-95); MPV 10.5 fL (8.0-11.0); Platelet Count 201 10^3/uL (130-400); RBC 3.75 10^6/uL (3.93-5.22); RDW 12.7 % (11.7-14.6); RDW-SD 43.8 fL; WBC 4.04 10^3/uL (4.4-10.8)
[2025-02-25 10:41] LABS: Magnesium 1.6 mg/dL (1.6-2.6)
[2025-02-25 11:05] LABS: ALT 29 U/L (10-49); AST 36 U/L (<34); Albumin 4.2 g/dL (3.4-5.0); Alkaline Phosphatase 110 U/L (46-116); Anion Gap 3.9 mmol/L (3-11); BUN 20 mg/dL (9-23); Bilirubin, Direct 0.1 mg/dL (<=0.3); Bilirubin, Total 0.30 mg/dL (0.2-1.2); CO2 25.1 mmol/L (20.0-31.0); Calcium 9.0 mg/dL (8.3-10.6); Chloride 110 mmol/L (98-107); Cholesterol 151 mg/dL (<200); Glucose 127 mg/dL (74-106); HDL Cholesterol 64 mg/dL (>40); Potassium 3.7 mmol/L (3.5-5.1); Sodium 139 mmol/L (136-145); Total Protein 8.2 g/dL (5.7-8.2)
[2025-02-25 16:19] LABS: Lab Add On Test DONE
== END 2025-02-25 01:43 | disposition home or self-care (01) ==
PROVIDERS: Internal Medicine Advanced Heart Failure and Transplant Cardiology; PCP Nurse Practitioner Family; Visit Provider Nurse Practitioner Gerontology
DX: Z94.1 Heart transplant status (principal); R05.9 Cough, unspecified
CPT/HCPCS: 36415; 80053; 80061; 80076; 80197; 83735; 83880; 84100; 85025; 87497

== ENCOUNTER 2025-03-04 01:01 | Outpatient (CLI) | payer BC, SELFPAY ==
[2025-03-04 10:22] LABS: Abs Immature Grans 0.05 10^3/uL (0.0-0.06); HCT 34.5 % (36.0-46.0); HGB 11.2 g/dL (11.2-15.7); Immature Grans % 1.1 %; MCH 31.0 pg (27.0-33.0); MCHC 32.5 % (32.0-36.0); MCV 96 fL (80-95); MPV 10.3 fL (8.0-11.0); Platelet Count 214 10^3/uL (130-400); RBC 3.61 10^6/uL (3.93-5.22); RDW 12.7 % (11.7-14.6); RDW-SD 44.5 fL; WBC 4.57 10^3/uL (4.4-10.8)
[2025-03-04 12:49] LABS: Magnesium 1.5 mg/dL (1.6-2.6)
[2025-03-04 12:51] LABS: ALT 34 U/L (10-49); AST 39 U/L (<34); Albumin 4.4 g/dL (3.2-5.0); Alkaline Phosphatase 112 U/L (46-116); Anion Gap 10.8 mmol/L (3-11); BUN 23 mg/dL (9-23); Bilirubin, Direct 0.1 mg/dL (<=0.3); Bilirubin, Total 0.40 mg/dL (0.2-1.2); CO2 25.2 mmol/L (20.0-31.0); Calcium 9.8 mg/dL (8.3-10.6); Chloride 107 mmol/L (98-107); Glucose 97 mg/dL (74-106); Potassium 4.2 mmol/L (3.5-5.1); Sodium 143 mmol/L (136-145); Total Protein 8.3 g/dL (5.7-8.2)
[2025-03-06 13:37] LABS: CMV DNA Detect/Quant, P <35 IU/mL (Undetected)
== END 2025-03-04 01:02 | disposition home or self-care (01) ==
PROVIDERS: PCP Nurse Practitioner Family; Visit Provider Internal Medicine Advanced Heart Failure and Transplant Cardiology
DX: Z94.1 Heart transplant status (principal)
CPT/HCPCS: 36415; 80053; 80076; 80197; 83735; 84100; 85025; 87497

== ENCOUNTER 2025-03-11 01:23 | Outpatient (CLI) | payer BC, SELFPAY ==
[2025-03-11 16:05] LABS: Abs Immature Grans 0.10 10^3/uL (0.0-0.06); HCT 34.6 % (36.0-46.0); HGB 10.7 g/dL (11.2-15.7); Immature Grans % 2.0 %; MCH 30.1 pg (27.0-33.0); MCHC 30.9 % (32.0-36.0); MCV 98 fL (80-95); MPV 11.2 fL (8.0-11.0); Platelet Count 255 10^3/uL (130-400); RBC 3.55 10^6/uL (3.93-5.22); RDW 13.0 % (11.7-14.6); RDW-SD 46.6 fL; WBC 4.98 10^3/uL (4.4-10.8)
[2025-03-11 16:15] LABS: Magnesium 1.6 mg/dL (1.6-2.6)
[2025-03-11 16:17] LABS: ALT 30 U/L (10-49); AST 35 U/L (<34); Albumin 4.2 g/dL (3.2-5.0); Alkaline Phosphatase 100 U/L (46-116); Anion Gap 9.8 mmol/L (3-11); BUN 22 mg/dL (9-23); Bilirubin, Total 0.3 mg/dL (0.2-1.2); CO2 26.2 mmol/L (20.0-31.0); Calcium 9.2 mg/dL (8.3-10.6); Chloride 106 mmol/L (98-107); Glucose 114 mg/dL (74-106); Potassium 4.0 mmol/L (3.5-5.1); Sodium 142 mmol/L (136-145); Total Protein 7.6 g/dL (5.7-8.2)
== END 2025-03-11 01:24 | disposition home or self-care (01) ==
LOC: LBO 09:46 → LBN 15:39
PROVIDERS: Nurse Practitioner Adult Health; PCP Nurse Practitioner Family; Visit Provider Internal Medicine Advanced Heart Failure and Transplant Cardiology
DX: Z94.1 Heart transplant status (principal)
CPT/HCPCS: 36415; 80053; 80076; 80197; 83735; 84100; 85025; 87497

== ENCOUNTER 2025-03-21 00:26 | Outpatient (CLI) | payer BC, SELFPAY ==
[2025-03-21] MEDS: Hydrocortisone SOD SUC. 100 MG VIAL IVP (09:30)
[2025-03-21] MEDS: Acetaminophen 325 MG TAB 650 MG PO (09:30)
[2025-03-21] MEDS: diphenhydrAMINE 50 MG/ML VIAL IVP (09:32)
[2025-03-21 10:01] VITALS: BP 118/74; PULSE 90; RESP 18; TEMP 36.6; O2SAT 99
[2025-03-21] MEDS: [UNRECOGNIZED DRUG - OTHER] IVPB (10:21)
[2025-03-21 10:47] VITALS: BP 107/71; PULSE 85; RESP 16; TEMP 36.5; O2SAT 98
[2025-03-21 11:24] VITALS: BP 106/72; PULSE 82; RESP 18; TEMP 36.4; O2SAT 99
[2025-03-21] MEDS: [UNRECOGNIZED DRUG - OTHER] IVPB ×2 (11:34→12:46)
[2025-03-21 11:48] VITALS: BP 111/74; PULSE 82; RESP 18; TEMP 36.6; O2SAT 98
[2025-03-21 12:44] VITALS: BP 117/74; PULSE 87; RESP 18; TEMP 36.4; O2SAT 98
[2025-03-21 14:01] VITALS: BP 119/75; PULSE 86; RESP 18; TEMP 36.5; O2SAT 98
[2025-03-21] MEDS: Normal Saline Flush 10 ML SYR IVP (14:20)
== END 2025-03-21 00:27 | disposition home or self-care (01) ==
PROVIDERS: PCP Nurse Practitioner Family; Visit Provider Family Medicine
DX: Z94.1 Heart transplant status (principal)
CPT/HCPCS: 96365; 96366; 96374; J1200; J1569; J1720

== ENCOUNTER 2025-03-25 07:12 | Outpatient (CLI) | payer BC, SELFPAY ==
[2025-03-25 09:43] LABS: Abs Immature Grans 0.12 10^3/uL (0.0-0.06); HCT 34.6 % (36.0-46.0); HGB 10.7 g/dL (11.2-15.7); Immature Grans % 3.1 %; MCH 29.8 pg (27.0-33.0); MCHC 30.9 % (32.0-36.0); MCV 96 fL (80-95); MPV 10.4 fL (8.0-11.0); Platelet Count 248 10^3/uL (130-400); RBC 3.59 10^6/uL (3.93-5.22); RDW 13.1 % (11.7-14.6); RDW-SD 45.4 fL; WBC 3.82 10^3/uL (4.4-10.8)
[2025-03-25 10:11] LABS: Magnesium 1.6 mg/dL (1.6-2.6)
[2025-03-25 10:13] LABS: ALT 35 U/L (10-49); AST 45 U/L (<34); Albumin 4.2 g/dL (3.2-5.0); Alkaline Phosphatase 111 U/L (46-116); Anion Gap 8.2 mmol/L (3-11); BUN 25 mg/dL (9-23); Bilirubin, Total 0.4 mg/dL (0.2-1.2); CO2 27.8 mmol/L (20.0-31.0); Calcium 9.3 mg/dL (8.3-10.6); Chloride 105 mmol/L (98-107); Glucose 106 mg/dL (74-106); Potassium 4.1 mmol/L (3.5-5.1); Sodium 141 mmol/L (136-145); Total Protein 8.8 g/dL (5.7-8.2)
== END 2025-03-25 07:13 | disposition home or self-care (01) ==
PROVIDERS: PCP Nurse Practitioner Family; Visit Provider Nurse Practitioner Adult Health
DX: Z94.1 Heart transplant status (principal)
CPT/HCPCS: 36415; 80053; 80197; 83735; 85025